=== PATIENT | male | born 1975 | race Caucasian/White ===

== ENCOUNTER 2021-09-13 20:16 | Emergency (ER) | payer BC, SELFPAY ==
--- NOTE | ~2021-09-13 | XR_ITS ---
EXAMINATION: XR WRIST, LEFT CLINICAL INFORMATION: Injury left wrist COMPARISON: None TECHNIQUE: PA, lateral, and oblique views of the left wrist. FINDINGS: Comminuted distal dorsal angulated fracture of the distal radial metaphysis is seen with minimal dorsal displacement. Likely tiny ulnar styloid tip fracture as well. Carpal bones appear to be normal anatomic alignment. There is associated soft tissue swelling. XR/XR wrist LT 2V IMPRESSION: Comminuted distal dorsal angulated and displaced radial fracture with tiny ulnar styloid fracture.
--- NOTE | ~2021-09-13 | XR_ITS ---
EXAMINATION: LEFT WRIST. CLINICAL INFORMATION: Reduction of radial fracture COMPARISON: Left wrist 09/13/2021 TECHNIQUE: 4 views. FINDINGS: There is improved alignment of the distal radial fracture. Partial cast is in place. XR/XR hand wrist LT IMPRESSION: Distal radial fracture with placement of cast.
[2021-09-13 20:39] VITALS: BP 106/69; PULSE 78; RESP 18; TEMP 36.1; O2SAT 98; BMI 20.7
--- NOTE | 2021-09-13 21:41 | ED.EXTPRO ---
HPI - Extremity Problem General Chief complaint: Extremity Injury, Upper Stated complaint: broken wrist? Time Seen by Provider: 09/13/21 21:41 Source: patient Mode of arrival: ambulatory Limitations: no limitations History of Present Illness HPI Narrative: 45-year-old male presents to the emergency department with left-sided wrist pain status falling onto an outstretched hand while playing basketball. Patient tells me he landed with an outstretched hand tried to grab himself when he was falling. He tells me he did not hit his head or loose consciousness. Patient reports that wrist pain is worse while moving it, better at rest. He tells me he is not having numbness or tingling denies headache, vision changes, nausea, vomiting, abdominal pain, chest pain, shortness of breath. Last meal was at noon. Patient denies drinking, tells me he does not drink daily. He tells me the reason he fell was because he was playing basketball in slippers. MD Complaint: joint swelling and joint pain Onset (ago): day(s) (1) Pain Consistency: constant Location: left Severity scale (1-10): >10 Quality: stabbing and sharp Radiation: none Relieving factors: nothing Exacerbating factors: nothing Associated symptoms: denies other symptoms Related Data Allergies Allergy/AdvReac Type Severity Reaction Status Date / Time No Known Allergies Allergy Unverified 09/13/21 20:42 Review of Systems Review of Systems: Constitutional : No Weight loss, No Fever, No Chills, No Fatigue, No Malaise ENT/Mouth : No sore throat, No Rhinorrhea Eyes: No Eye Pain, No Swelling, No Redness Cardiovascular : No Chest Pain, No SOB, No Dyspnea on Exertion, No Orthopnea, No Edema, No Palpitations Respiratory : No Cough, No Sputum, No Wheezing Gastrointestinal : No Nausea, No Vomiting, No Diarrhea, No Constipation, No abdominal Pain, No Hematochezia, No Melena Genitourinary : No Dysuria, No Urinary Frequency, No Hematuria, Musculoskeletal : No joint pain, No Myalgias, No Joint Swelling Skin : No Skin Lesions, No rash Neuro : No Weakness, No Numbness, No Dizziness, No Headache Psych : No Anxiety/Panic, No Depression All other systems reviewed and are negative Yes all other systems are reviewed and are negative [facility] Past Medical History Attestation statement: The following information was validated with the patient. Source: old records reviewed and nursing notes reviewed Social History Social History Advance Directives: No Advance Directives Information Provided: No Physical Exam Vital Signs: Vital Signs: Last Vital Signs Temp 97.9 F 09/14/21 01:00 Pulse 83 09/14/21 01:00 Resp 16 09/14/21 01:00 BP 139/100 H 09/14/21 01:00 Pulse Ox 98 09/14/21 01:00 BMI result Body Mass Index 20.7 Vital signs stable. Appearance: Alert.? Oriented X3.? No acute distress.? Head: Normocephalic, atraumatic, no step-offs or deformities Eyes: Pupils equal, round and reactive to light.? ENT: Pharynx normal.? Neck: Normal inspection.? Neck supple.? CVS: Normal heart rate and rhythm.? Pulses normal.? Respiratory: No respiratory distress.? Breath sounds normal.? Abdomen: Soft and nontender.? Skin: Skin warm and dry.? Normal skin color.? Normal skin turgor.? Extremities: No lower extremity edema.? No calf ttp. 5/5 strength to bilateral upper and lower extremities + pain with range of motion of left wrist, left wrist is dorsally angulated. Right side normal. 2+ radial pulses equal bilateral. No wrist drop. Capillary refill less than 2 seconds to all upper extremity digits. Neuro: Oriented X 3.? No motor deficit.? No sensory deficit. CN 2-12 intact Course Reevaluation(s) Reevaluation #1: X-ray of the left wrist significant for comminuted distal dorsal angulated and displaced radial fracture with tiny styloid fracture as well. Plan at this time is to do a bedside conscious sedation to reduce the fracture. Verbal and written consent were obtained and are in the chart. Time: 22:17 Reevaluation #2: A bedside reduction was done using propofol with Dr. Deshpande at the bedside. After patient was sedated with propofol, patient's friend at the bedside tells us that he is a heavy drinker, patient is started getting slightly agitated, 2 mg of IV Versed were given. No complications with reduction of left wrist. Patient was placed in a sugar-tong splint. After splint placement neurovascularly intact. Post reduction films were obtained and ordered. Time: 00:08 Reevaluation #3: Post reduction film shows improved alignment of the distal radial fracture. Patient feeling much better, neurovascularly intact. Vital signs are stable. Alert and oriented x4. Plan at this time is to discharge patient home with orthopedic follow up. Comfortable discharge home with prompt orthopedic follow-up. At time of discharge patient's vital signs are stable, ambulating with a steady gait, no nausea, vomiting, headache, dizziness, vision changes. Patient's splint well applied, neurovascularly intact. Time: 01:00 MDM - Extremity (Nontraumatic) MDM Narrative Medical decision making narrative: [id number] 45-year-old male presents with a left-sided wrist pain status post fall on an outstretched hand just prior to his arrival. Last meal was at noon. Patient does not drink alcohol regularly, denies alcohol today. Physical examination significant for a dorsally angulated left wrist. Sensory and motor intact. No wrist drop bilaterally. 2+ radial pulses equal and bilateral. Neurovascularly intact. Pain with range of motion of left wrist. Patient appears uncomfortable. Plan at this time is imaging. Medical Records Attestation: I reviewed the patient's medical records. Lab Data Attestation: I reviewed the patient's lab results. Procedures Orthopedic Joint Reduction Joint #1: Time Out Performed: Yes Side: left Joint Reduction Location: wrist Analgesia: procedural sedation Shoulder Technique Used (if applicable): traction/counter-traction Technique used: traction/counter-traction and direct manipulation Post-reduction neuro exam: intact Post-reduction vascular: intact Post Reduction X-Ray Obtained: Yes Post Reduction X-Ray Results: reduced Splint Applied: Yes Patient Tolerated Procedure: well Orthopedic Splinting/Casting Injury #1: Side: left Upper Extremity Injury Location: wrist Upper Extremity Immobilizer: sugar tong splint Critical Care Time Critical Care Time Critical Care Time: Yes Total Critical Care Time: 60 Attestation: I attest to this time spent taking care of the patient, obtaining history, physical, reviewing labs, imaging, speaking to my attending. Discharge Plan Discharge Clinical Impression: Distal radial fracture, Fracture of ulnar styloid Patient Disposition: Home, Self-Care Instructions: Arm Fracture in Adults (ED), Wrist Fracture in Adults (ED) Additional Instructions: Take your medications as prescribed. If you were prescribed antibiotics today, it is important that you take your medication to their entirety, do not skip any doses, do not finish them early. Follow-up with your primary care provider this week. You need to call Orthopedics on Thursday and schedule follow-up. You can take ibuprofen every 6 hours, Tylenol every 4 as needed for pain or discomfort. Return to the emergency department with new or worsening symptoms. Such as fevers, chills, chest pain, shortness of breath, nausea, vomiting, dizziness, headache, vision changes, lethargy, numbness, tingling, severe pain. Educated you in signs and symptoms of compartment syndrome such as severe pain, numbness, tingling, loss of sensation In case of emergency call 911 XR/XR wrist LT 2V IMPRESSION: Comminuted distal dorsal angulated and displaced radial fracture with tiny ulnar styloid fracture. XR/XR hand wrist LT IMPRESSION: Distal radial fracture with placement of cast.? ? Referrals: [facility] [Provider Group] - 3 days Stand Alone Forms: Work/School Release
[2021-09-13 22:36] VITALS: BP 142/91; PULSE 58; RESP 18; TEMP 36.5; O2SAT 96
[2021-09-13 22:53] VITALS: RESP 16
[2021-09-13] MEDS: Morphine Sulfate 4 MG/ML CARTRIDGE IVPUSH (22:53)
[2021-09-13 23:55] VITALS: BP 149/90; PULSE 75; RESP 16; TEMP 36.6; O2SAT 99
[2021-09-14] VITALS (11 sets, daily range): BP systolic 136–149; BP diastolic 86–100; PULSE 70–102; RESP 14–26; TEMP 36.6; O2SAT 93–100
[2021-09-14] MEDS: propofoL 200 MG/20 ML VIAL 100 MG IVPUSH (00:19)
[2021-09-14] MEDS: Midazolam HCl/PF 2 MG/2 ML VIAL 1 MG IVPUSH ×2 (00:26→00:27)
== END 2021-09-14 01:32 | disposition home or self-care (01) ==
PROVIDERS: Emergency Provider Emergency Medicine
DX: S52.502A Unspecified fracture of the lower end of left radius, initial encounter for closed fracture (principal); S52.612A Displaced fracture of left ulna styloid process, initial encounter for closed fracture; W18.30XA Fall on same level, unspecified, initial encounter; Y93.67 Activity, basketball; Y92.9 Unspecified place or not applicable; Y99.9 Unspecified external cause status
CPT/HCPCS: 25605; 73100; 73110; 73130; 96374; 96375; 99152; 99284; 99285; J2250; J2270

== ENCOUNTER 2021-09-19 07:56 | Day surgery (SDC) | payer BC, SELFPAY ==
[2021-09-19] VITALS (9 sets, daily range): BP systolic 100–127; BP diastolic 62–75; PULSE 59–84; RESP 17–20; TEMP 36.2–36.8; O2SAT 97–100; BMI 20.7
--- NOTE | ~2021-09-19 | FL_ITS ---
EXAMINATION: XR FLUOROSCOPY WITH IMAGES CLINICAL INFORMATION: Left wrist fracture. COMPARISON: 09/13/2021 TECHNIQUE: Fluoroscopy performed by Dr. Esme Siegel. FLUOROSCOPY TIME: 30.4 seconds DAP: 0.0473 Gy-cm2 FLUOROSCOPY IMAGES 4 FINDINGS: Intraoperative imaging demonstrates placement of sideplate and screws for fixation of comminuted distal left radial fracture with improvement in radiocarpal angulation to volar. There is acquired negative ulnar variance. FL/FL guidance in OR IMPRESSION: Intraoperative fluoroscopy for OR internal fixation of comminuted left radial fracture.
--- NOTE | 2021-09-19 07:54 | P.OP_ITS ---
Operative Note Operative Note Date of Service: 09/19/21 Narrative: Operative Note Narrative: Preop diagnosis: 1. Left Distal radius fracture 2. Left acute carpal tunnel syndrome Postop diagnosis: Same Procedure: 1. Left Distal radius fracture open reduction internal fixation 2. Left carpal tunnel release Surgeon: Monika Siegel MD Anesthesia: General anesthesia plus regional block Findings: Pronator quadratus muscle caught in fracture site Implants: A 3 hole Accu Med volar locking plate, with 6 X 2.3 mm locking pegs/screws, and 3 3.5 mm cortical screws Tourniquet time: 72 minutes EBL: 5.0 ml Specimen: None Drains: None Complications: None Disposition: Brought to the recovery room in stable condition Plan: Follow-up in 10-14 days for wound check, suture removal and postop radiographs The patient will be placed in a volar wrist splint. Encouraged no lifting of anything heavier than a cell phone. Please encourage active and passive range of motion of the digits. Follow-up at 4-5 weeks postop for repeat radiographs. Indications: The patient is a 45 year old man with left displaced distal radius fracture who also had some persistent numbness and tingling in the median nerve distribution since his fracture. . The risks and benefits of operative treatment, including but not limited to risk of damage to blood vessels, nerves, tendons, infection, recurrence, persistent pain or numbness, incomplete resolution of preoperative symptoms, or need for further surgery were discussed with the patient and they wished to proceed with surgery. Procedure: Once consent was obtained patient was brought back to the operating suite and placed in the operating table in a supine position. A regional block was performed by the anesthesia team. Perioperative antibiotics and anesthesia was administered by the anesthesia team. A tourniquet was applied to the proximal aspect of the left upper extremity and the limb was prepped and draped in a standard surgical fashion. The limb was elevated exsanguinated with Esmarch bandage and the tourniquet inflated to 250 mm of mercury for a total tourniquet time of 72 minutes. A 2.0 cm longitudinal incision was made centered over the left carpal tunnel. The incision was made through the skin to the subcutaneous tissues using a #15 blade. Dissection was made down to the level of the transverse carpal ligament with care being taken to protect the palmar cutaneous nerve. Once the feliciano sverse carpal ligament was clearly visualized, a longitudinal incision was made in the transverse carpal ligament 1st using a #15 blade, then using tenotomy scissors under direct visualization. Care was taken to look for and protect the motor branch of the median nerve when seen in this area. Once satisfied with our carpal tunnel release the wound was irrigated with normal saline, and the skin edges reapproximated with some 4-0 Prolene suture material.. Our attention was then turned to our distal radius fracture. The FluoroScan was used throughout the case to assess our reduction, and facilitate implant placement. A gentle closed reduction was 1st performed on the patient's left distal radius fracture. Was assessed radiographically before proceeding with the reduction internal fixation. I then made an 8 cm longitudinal incision over the distal aspect of the flexor carpi radialis tendon. The incision was made through the skin to the subcutaneous tissue using a 15. Blade. Then carefully dissected down to flexor carpi radialis tendon she tenotomy scissors. The FCR tendon sheath was then incised longitudinally using tenotomy scissors under direct visualization. The FCR tendon was then retracted ulnarly. I then made a longitudinal incision in the volar forearm fascia through the floor of FCR tendon sheath using tenotomy scissors under direct visualization. I identified the interval between the radial artery and the flexor tendons. This interval was developed further with my index finger, releasing some of the muscular fibers of the flexor pollicis longus. A dull weatlander retractor was then placed. I then created an ulnarly based flap of the pronator quadratus by releasing the radial and distal edges using a 15. Blade. A Waldrop elevator was used to elevate the pronator quadratus from the volar surface of the distal radius. This then revealed to us our distal radius fracture. Some of the pronator quadratus muscle belly was caught in the fracture site. Th e fracture was opened and the muscle tissue removed using a small rongeur. The distal aspect of the radius was displaced posteriorly. An open reduction was then performed on our distal radius fracture and a 0.054 K-wire was passed retrograde through the radial styloid obliquely across the fracture and through the ulnar cortex of the shaft. This was provisional fixation.. I then placed a short standard 3 hole Accu Med volar locking plate on the volar surface of the distal radius. I placed a single K-wire through the distal aspect of the plate and into the distal radius. This was assessed using fluoroscopic images. I was satisfied with the placement of our plate. I then placed 6 sex 2.3 mm locking screws/pegs in the distal aspect of the plate and distal radius by 1st drilling bicortically with a 2.0 mm drill bit, measuring with a depth gauge, and placing the appropriate length locking screws/pegs. The placement of our plate and screws was then assessed again using fluoroscopic images. The once satisfied with the placement of the volar locking plate and screws on the distal aspect of the distal radius, the provisional obliquely placed K-wire was removed, and the plate was then reduced to the shaft of the radius. I then placed 3 3.5 mm cortical screws to the proximal aspect of the plate and into the shaft of the radius. This was done by 1st drilling bicortically with a 2.8 mm drill bit, measuring with a depth gauge, and placing the appropriate length screw. Final radiographs were then obtained. The DRUJ was assessed and found to be stable on exam. I was satisfied with our reduction and placement of all implants. At this point the wound was irrigated with normal saline. The pronator quadratus was significantly damaged in the fracture and not able to be reapproximated over the plate.. The tourniquet was then deflated and hemostasis was obtained with a brief period of local pressure and bipolar monopolar electrocautery. The subcutaneous layer was then reapproximated using some 4-0 Vicryl suture, and the skin edges were reapproximated using some 5 0 Prolene suture. The wound was then infiltrated with some 1% lidocaine with epinephrine postop pain control. A sterile dressing and a short dorsal splint allowing for active flexion and extension of the digits was applied. The patient appears to have tolerated the procedure well and with no complications. All digits were well vascularized conclusion of the case.
[2021-09-19] MEDS: Albuterol/Iprat 2.5/0.5MG 3 ML AMPUL.NEB 1.5 ML INHALE (09:04)
--- NOTE | 2021-09-19 09:08 | HO.ANESPROP2 ---
HPI - Anesthesia Eval Consult details Narrative: 45 M for ORIF left radius Current Smoker , COPD Patient had end expiratory wheezing in the pre -op We gave Duo neb nebulization Denies any recent cough , fevers , runny nose , sore throat . We will not delay care and procced with the procedure . Patient counselled to quit smoking and discuss options with PCP . Also discussed with the patient that he may need inhaler prescription from the PCP . Patient also explained that if he has any kind of respiratory symptoms , difficulty breathing should immediately go to the ED . PMF Active Problems Active Problems: All Active Problems (Updated 09/18/21 @ 09:08 by Dillon Shukla PA-C) Distal radius fracture, left (Acute) Past Medical History Medical History Smoker Family History Family history of problems with anesthesia: No Surgical History Surgical History (Updated 09/19/21 @ 08:28 by Margarita Sloan RN) History of knee surgery Hx of oral surgery History of Problems with Anesthesia: No Social History Social History (Updated 09/18/21 @ 08:17 by MIKAELA Gamble) Patient Tobacco Use Status: Current everyday Tobacco user Tobacco use type: Cigarette Cigarettes Per Day: 10 Smoked in Last 30 Days: Yes Use of substances other than those prescribed or required for medical reasons: Yes Substance Use Frequency: Occasionally Are you DNR?: No Advance Directives: No Advance Directives Information Provided: Yes Current occupational status: employed Current occupation: [employer], [employer] Meds Allergies Allergy/AdvReac Type Severity Reaction Status Date / Time No Known Allergies Allergy Verified 09/19/21 09:09 Exam Exam Date and Time: September 19, 2021 0908 Height,Weight and Vital Signs: Height 5 ft 9 in Weight 63.503 kg Last Vital Signs Temp 97.7 F 09/19/21 08:25 Pulse 71 09/19/21 09:03 Resp 18 09/19/21 09:03 BP 127/75 09/19/21 08:25 Pulse Ox 98 09/19/21 08:25 O2 Del Method 09/19/21 08:25 Airway Mallampati Class: II TM Dist: >3cm Neck ROM: Full Loose/Missing/Broken Teeth: Yes (Poor dentition ) Heart: S1 , S2 Lungs: b/l breath sounds Other: old bailon left shoulder Assessment and Plan Assessment Anesthesia Assessment: Anesthesia Plan Discussed, Smoking Cess. Discussed and Chart Reviewed Final Anesthetic Review Family History of Problems with Anesthesia: No History of Problems with Anesthesia: No NPO: Yes ASA Class: III Final Preanesthetic Review: Meds/Allgs Chart Reviewed, Consent Obtained/Reviewed and Anes Risks/Benef Reviewed Patient Risk: High Procedure Risk: Intermediate Anesthetic Plan Anesthetic Plan: GA and Regional Block Disposition: Standard PACU
[2021-09-19] MEDS: Lactated Ringers 1,000 ML 80 ML IVCONT (09:23)
--- NOTE | 2021-09-19 10:17 | MHC.SHP ---
Pre-Procedural Eval Section A Date of Service: 09/19/21 The patient is an INPATIENT: No Changes since office visit: No Cold of Flu in the past 2 weeks, No New Medical Problems, No Changes in Medication and No Patient answered all questions The History & Physical has been completed within 30 days and I have reviewed it.: Yes Section B Chief Complaint: Unspecified fracture of the lower end of left radi Allergies: Allergies Allergy/AdvReac Type Severity Reaction Status Date / Time No Known Allergies Allergy Verified 09/19/21 09:09 Plan I have reviewed the history and physical and performed a pertinent physical examination on my patient. No changes have occurred unless specified.
--- NOTE | 2021-09-19 10:28 | P.HPSUR_ITS ---
Pre-Procedural Eval Section A Date of Service: 09/19/21 The patient is an INPATIENT: No Changes since office visit: Yes Cold of Flu in the past 2 weeks, Yes New Medical Problems, Yes Changes in Medication and Yes Patient answered all questions The History & Physical has been completed within 30 days and I have reviewed it.: Yes Section B Chief Complaint: Unspecified fracture of the lower end of left radi Allergies: Allergies Allergy/AdvReac Type Severity Reaction Status Date / Time No Known Allergies Allergy Verified 09/19/21 09:09 Exam Exam Comment: In talking with the patient in preop hold he described that he had persistent pins and needle sensation in his thumb index and middle fingers over the last few days. He did have some decreased subjective sensation in his fingertips when seen at the bedside, however he had recently had a block performed by Anesthesia. Out of an abundance of caution I talked to him about having a carpal tunnel release in addition to fixing his distal radius fracture. He agreed and we amended his consent at the bedside with his permission and initi als. Plan I have reviewed the history and physical and performed a pertinent physical examination on my patient. No changes have occurred unless specified.
== END 2021-09-19 14:16 | disposition home or self-care (01) ==
PROVIDERS: Visit Provider Orthopaedic Surgery
PROC: (CPT 25607; principal; 2021-09-19 09:30)
PROC: (CPT 64721; 2021-09-19 09:30)
DX: S52.502A Unspecified fracture of the lower end of left radius, initial encounter for closed fracture (principal); G56.02 Carpal tunnel syndrome, left upper limb; R06.2 Wheezing; J44.9 Chronic obstructive pulmonary disease, unspecified; W01.0XXA Fall on same level from slipping, tripping and stumbling without subsequent striking against object, initial encounter; Y93.67 Activity, basketball; Y92.9 Unspecified place or not applicable; Y99.8 Other external cause status; F17.210 Nicotine dependence, cigarettes, uncomplicated
CPT/HCPCS: 25607; 64721; 94640; C1713; C1769; J0690; J1100; J1885; J2250; J2405; J2795; J3010

== ENCOUNTER 2021-10-02 08:24 | Outpatient (REF) | payer BC, SELFPAY ==
--- NOTE | ~2021-10-02 | XR_ITS ---
EXAMINATION: XR WRIST, LEFT CLINICAL INFORMATION: Pain left wrist. COMPARISON: None TECHNIQUE: PA, lateral, and oblique views of the left wrist. FINDINGS: There is a comminuted distal radial fracture stabilized with volar plate and screws. The fracture fragment is in alignment. There is no dislocation. The soft tissues are normal. XR/XR wrist LT min 3V IMPRESSION: Comminuted fracture distal radius with volar plate and screws stabilizing fracture in alignment.
== END 2021-10-02 08:25 | disposition home or self-care (01) ==
LOC: HO.HOSX 08:24
PROVIDERS: Visit Provider Orthopaedic Surgery
DX: M25.532 Pain in left wrist (principal)
CPT/HCPCS: 73110

== ENCOUNTER 2021-10-16 07:58 | Outpatient (REF) | payer BC, SELFPAY ==
--- NOTE | ~2021-10-16 | XR_ITS ---
EXAMINATION: XR WRIST, LEFT CLINICAL INFORMATION: Left wrist pain. COMPARISON: 10/02/2021 TECHNIQUE: PA, lateral, and oblique views of the left wrist. FINDINGS: Status post ORIF of comminuted distal radial fracture stabilized with volar plate and screws. Alignment is unchanged. No periprosthetic lucency. Mild diffuse soft tissue swelling. XR/XR wrist LT min 3V IMPRESSION: Stable examination.
== END 2021-10-16 07:59 | disposition home or self-care (01) ==
LOC: HO.HOSX 07:58
PROVIDERS: Visit Provider Orthopaedic Surgery
DX: M25.532 Pain in left wrist (principal)
CPT/HCPCS: 73110

== ENCOUNTER 2021-10-23 08:30 | Outpatient (RCR) | payer BC, SELFPAY ==
--- NOTE | 2021-10-02 11:59 | MHC.OT.EP ---
[address] [phone] Occupational Therapy Plan of Care Date of Evaluation: 10/02/21 Diagnosis: Post op L distal radius ORIF and CTR Assessment: Pt. is a 45 y/o male, L hand dominant, presenting s/p L distal radius ORIF and a L carpal tunnel release on 09/19/21. Original injury was sustained s/p fall on L wrist while playing basketball. Pt. arrived today from ortho where his cast was removed and steri strips were placed. He appears somewhat guarded and reports not moving his fingers much while casted, although he is motivated for treatment and very receptive to all recommendations this date. Pt. is having difficulty with performing daily activities and scored a 73% limitation per the Quick DASH assessment. Pt. was educated in role of OT, POC, and goals for therapy. Additionally, he was educated in scar management, activity modifications with precautions of not lifting anything heavier than a cell phone for 2 weeks, as well as gentle AROM and FMC exercises. Per MD orders, will hold on significant wrist flexion/extension for 2-3 weeks. Ongoing skilled OT is recommended to address previously noted barriers and assist in return to PLOF. Frequency and Duration: The patient will be seen 1x/wk for 4 weeks then progress to 2/wk for 4 weeks when able to perform progressive wrist therex. Short Term Goals: Decrease L wrist pain <4/10 with use IND with scar mobilization and desensitization techniques Improve digit ROM to be able to make full tight fist Complete digit opposition L hand to tip of small finger Improve FMC to be able to complete Functional Dexterity Test with L hand Improve L wrist flexion/extension by 15 degrees each Government Professor Goals: Pain free with BADL's/and light IADL's Improve L wrist ROM to WFL's Pt. 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 Thank you once again for your referral.
== END 2022-06-06 11:00 | disposition home or self-care (01) ==
LOC: HO.OT 08:30
PROVIDERS: Visit Provider Orthopaedic Surgery
DX: S52.502A Unspecified fracture of the lower end of left radius, initial encounter for closed fracture (principal); M25.642 Stiffness of left hand, not elsewhere classified
CPT/HCPCS: 97110; 97140; 97166

== ENCOUNTER 2021-12-03 09:05 | Outpatient (REF) | payer BC, SELFPAY ==
--- NOTE | ~2021-12-03 | XR_ITS ---
EXAMINATION: XR WRIST, LEFT CLINICAL INFORMATION: Pain. COMPARISON: Left wrist 10/16/2021 TECHNIQUE: PA, lateral, and oblique views of the left wrist. FINDINGS: There is a transverse fracture distal radius stabilized with volar plate and screws. The fracture line is still visualized mild callus formation is seen along the edges of the fracture. There is diffuse osteopenia. XR/XR wrist LT min 3V IMPRESSION: Slowly healing distal radial fracture stabilized with volar plate and screws. Mild callus formation is visualized. The fracture line is still visualized as well. Diffuse osteopenia
== END 2021-12-03 09:06 | disposition home or self-care (01) ==
LOC: HO.HOSX 09:05
PROVIDERS: Visit Provider Orthopaedic Surgery
DX: M25.532 Pain in left wrist (principal)
CPT/HCPCS: 73110

== ENCOUNTER 2022-01-06 15:44 | Outpatient (REF) | payer BC, SELFPAY ==
--- NOTE | ~2022-01-06 | XR_ITS ---
EXAMINATION: XR WRIST, LEFT CLINICAL INFORMATION: Pain COMPARISON: Wrist radiographs 12/03/2021 TECHNIQUE: PA, lateral, and oblique views of the left wrist. FINDINGS: ORIF of the distal radial fracture in unchanged alignment. Similar minimal bridging bony callus formation. Similar ulnar styloid avulsion fracture. Osteopenia. No acute new fracture or dislocation. Soft tissues are unremarkable. XR/XR wrist LT min 3V IMPRESSION: ORIF of the distal radial fracture in unchanged alignment. Similar minimal bridging bony callus formation. Similar ulnar styloid avulsion fracture. Osteopenia.
== END 2022-01-06 15:45 | disposition home or self-care (01) ==
LOC: HO.HOSX 15:44
PROVIDERS: Visit Provider Orthopaedic Surgery
DX: M25.532 Pain in left wrist (principal)
CPT/HCPCS: 73110

== ENCOUNTER 2024-06-09 15:30 | Inpatient (IN) | payer BC, SELFPAY ==
--- NOTE | ~2024-06-09 | US_ITS ---
EXAMINATION: US TRIPLEX LOWER EXTREMITY, RIGHT CLINICAL INFORMATION: Calf pain, heard pop.? Achilles tear. COMPARISON: None available. TECHNIQUE: Color-flow triplex imaging with spectral analysis and compression Doppler were performed on the right lower extremity. FINDINGS: There is noncompressible occlusive thrombus within the right common femoral vein, extending through the popliteal vein into the calf veins. There is no Pedersen's cyst. There is calf edema present. US/US venous duplex LE RT IMPRESSION: POSITIVE for occlusive right lower leg DVT, spanning the right common femoral vein, through the popliteal vein, into the calf veins. Electronically signed by: Jean-Paul Still MD 06/09/2024 04:25 PM BRIEN
--- NOTE | ~2024-06-09 | CT_ITS ---
CLINICAL HISTORY: left flank pain CT ABDOMEN AND PELVIS WITHOUT CONTRAST Comparison: CT/SR - CT ANGIO ABDOMEN PELVIS - 06/09/24 19:44 EST Findings: Bilateral lower lobe atelectasis and/or scarring. There is an 8 mm noncalcified left lower lobe nodule. There is subpleural airspace opacity in the left lower lobe laterally. No acute abnormalities in the unenhanced solid organs. No renal or ureteral calculus. No large calcified gallstone. Dense calcific plaque in the distal abdominal aorta. No AAA. No bowel obstruction, pneumoperitoneum, or pneumatosis. No ascites or significant mesenteric edema. No significant paracolic edema. The appendix is identified. No acute appendicitis. Urinary bladder and prostate unremarkable. There is subcutaneous edema in the right thigh most likely related to known DVT. No acute osseous abnormality. IMPRESSION: 1. No acute obstructive uropathy or urolithiasis. 2. No obstructive or acute inflammatory changes in the gastrointestinal tract. 3. Small subpleural infiltrate in the left lower lobe, new since prior study. 4. Indeterminate 8 mm left lower lobe pulmonary nodule. Follow-up dedicated CT chest is suggested on a nonemergent basis. This document has been electronically signed by: Nithya Chua DO on 06/11/2024 14:32:21
--- NOTE | ~2024-06-09 | CT_ITS ---
CLINICAL HISTORY: extensive DVT CT angiography abdomen and pelvis with contrast. 3-D post processing. Comparison: None Findings: Aorta normal in caliber. No aneurysm or dissection. Distal left aortic coral reef 3.5 cm calcified plaque results in at least 90 percent luminal narrowing image 282. Mesenteric and renal arteries are patent. [id number] atherosclerotic disease of the iliofemoral arteries bilaterally with no hemodynamically significant stenosis. The lung bases are clear. Unremarkable gallbladder and solid organs. No urolithiasis. No bowel obstruction, pneumoperitoneum, or pneumatosis. Pelvic contents unremarkable. Normal appendix. No acute fracture. IMPRESSION: 1. Right profunda femoris, common femoral, and superficial femoral deep vein thrombosis with expanded vein and surrounding fatty induration. This is indirectly evaluated due to lack of venous contrast opacification. No evaluation of thrombus in the iliac veins can be made on this examination. 2. Severe distal aortic stenosis due to a large calcified plaque. This document has been electronically signed by: Татьяна Crawley MD on 06/09/2024 22:07:55
--- NOTE | ~2024-06-09 | XR_ITS ---
EXAMINATION: XR TIBIA AND FIBULA, RIGHT CLINICAL INFORMATION: right posterior leg pain. heard pop COMPARISON: None available. TECHNIQUE: AP and lateral views of the right tibia and fibula were obtained. FINDINGS: The bones and soft tissues are normal. No fracture. No osseous lesions. XR/XR tibia fibula RT 2V IMPRESSION: Unremarkable right tibia and fibula. Electronically signed by: Zak Sarabia MD 06/09/2024 04:34 PM EST
[2024-06-09 15:35] VITALS: BP 141/79; PULSE 115; RESP 18; TEMP 37.4; O2SAT 100; BMI 20.7
--- NOTE | 2024-06-09 15:47 | ED_ITS ---
HPI - General Adult General Chief complaint: Extremity Injury, Lower Stated complaint: Rt leg pain heard something snap Time Seen by Provider: 06/09/24 17:56 Source: patient, RN notes reviewed and old records reviewed Mode of arrival: ambulatory Limitations: no limitations History of Present Illness ED Provider: Janina FLOREZ narrative: 48-year-old male who denies any past medical history presents for evaluation of right leg pain and swelling. Patient reports he has had worsening pain for approximately 3 weeks. Denies any injury or trauma to the area. He reports he was very active His pain starts in his right groin and goes all way down to the right ankle/foot. He denies any history of DVT or PE Denies any fevers or chills pain Denies any chest pain, shortness of breath or cough. He was a daily smoker Related Data Home Medications ?Medication ?Instructions ?Recorded ?Confirmed No Known Home Meds 06/09/24 06/09/24 Allergies Allergy/AdvReac Type Severity Reaction Status Date / Time No Known Allergies Allergy Verified 06/09/24 15:39 Review of Systems 2 Constitutional: Constitutional: Denies body ache(s), Denies chills, Denies fever(s) and Denies frequent falls Eyes: Eyes: Denies dry eyes and Denies floaters ENT: Denies dysphagia and Denies vertigo Cardiovascular: Cardiovascular: Denies chest pain and Denies dyspnea Respiratory: Respiratory: Denies cough and Denies dyspnea Gastrointestinal: Gastrointestinal: Denies dysphagia Musculoskeletal: Musculoskeletal: Denies back pain, Denies arthralgias and Reports radiating pain into limb Integumentary/Breasts: Skin/Breast: Denies rash Neurologic: Denies vertigo and Denies frequent falls [facility] Past Medical History Medical History Smoker Surgical History Hx of oral surgery History of knee surgery Social History Social History Household Members: None Housing: House Do you presently have visiting nurse or other home services: No Alcohol intake: former Patient Tobacco Use Status: Current everyday Tobacco user Tobacco use type: Cigarette Cigarette Packs Per Day: 1 Cigarettes Per Day: 20.0 Current occupational status: employed 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, 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 Physical Exam ED Vital Signs: Vital Signs - 24 hr 06/09/24 15:35 06/09/24 19:59 Temperature 99.3 F 98.6 F Pulse Rate 115 H 98 Respiratory Rate 18 12 Blood Pressure 141/79 H 122/70 Pulse Oximetry 100 100 Oxygen Delivery Method Room Air Room Air BMI result Body Mass Index 17.5 Const General: healthy appearing, comfortable, no acute distress, alert and awake Nutritional Appearance: thin Orientation/consciousness: patient oriented x3 HENMT Head: Yes normocephalic and Yes atraumatic Eyes Eyelids: Yes eyelids normal Conjunctivae: conjunctivae normal Sclerae: sclerae normal Corneas: corneas normal Pupils: Equal, round and reactive pupils present EOM: EOMs intact bilaterally Neck Neck: Yes full ROM Resp Effort & Inspection: normal respiratory effort, able to speak in complete sentences and not labored GI Inspection: No distended Palpation (GI): Soft to palpation, not firm, nontender, no guarding and not rigid Auscultation: normoactive bowel sounds Skin General skin exam: elasticity normal Neuro General: patient oriented x3 Cranial nerves: Yes Equal, round and reactive pupils present and Yes Bilaterally intact EOM present Cognition (Neuro): normal cognition Extrem Other: Patient's right lower extremities edematous from the groin down to the ankle. No pitting edema. Calf veins are distended. There was some erythema to the valenzuela with increased warmth. DP and PT pulses are 2+ and equal. Course Course Course Narrative: RME: 48-year-old male presents to ED for right calf pain for many weeks. Patient states he was at work 2 weeks ago and heard a pop in his right calf ever since then he has had pain on ambulation and the past 2 days the pain was so bad he could not walk on right leg due to severe calf pain. Negative for signs for compartment syndrome. Positive for foot pulses. Positive for severe tenderness of calf. Will send ultrasound to rule out DVT and calf tear/Achilles tendon tear. Medications Administered Generic Name Dose Route Start Last Admin Trade Name Freq PRN Reason Stop Dose Admin Heparin Sodium (Porcine) 4,300 unit 06/09/24 19:46 06/10/24 03:09 Heparin Sodium,Porcine 5,000 Unit/Ml Vial 80 unit/kg (4300 unit) 4,300 unit IVPUSH Administration PROTOCOL BOLUS PRN 80 unit/kg - Heparin Protocol Protocol Heparin Sodium/Sodium Chloride 25,000 unit in 250 mls @ 0 mls/hr 06/09/24 20:00 06/10/24 07:06 Heparin Sodium,Porcine/1/2ns IVCONT 18 units/kg/hr .Q0M JULIA 9.68 mls/hr Administration Protocol Per Protocol Morphine Sulfate 4 mg 06/09/24 20:31 06/10/24 06:09 Morphine Sulfate 4 Mg/Ml Cartridge IVPUSH 4 mg Q4H PRN Administration Pain, Severe (Pain Scale 7-10) Protocol Nicotine 21 mg 06/09/24 21:15 06/09/24 22:16 Nicotine 21 Mg Patch.Td24 TRANSDERMA Not Given DAILY JULIA Sodium Chloride 3 ml 06/10/24 00:00 06/10/24 08:26 0.9 % Sodium Chloride Flush 3 Ml Syringe IVFLUSH Not Given QSHIFT JULIA Discontinued Medications Generic Name Dose Route Start Last Admin Trade Name Freq PRN Reason Stop Dose Admin Heparin Sodium (Porcine) 5,100 unit 06/09/24 19:01 06/09/24 19:56 Heparin Sodium,Porcine 5,000 Unit/Ml Vial 80 unit/kg (5100 unit) 06/09/24 19:02 5,100 unit IVPUSH Administration ONCE ONE Lactated Ringer's 1,000 mls @ 999 mls/hr 06/09/24 19:30 06/09/24 21:03 Lr IV 06/09/24 20:30 Infused .Q1H1M JULIA Infusion Thiamine HCl 200 mg/ Sodium 102 mls @ 204 mls/hr 06/09/24 20:45 06/09/24 22:42 Chloride IV 06/09/24 21:14 Infused ONCE ONE Infusion Iohexol 100 ml 06/09/24 19:46 06/09/24 19:48 Iohexol 350 Mg/Ml 100 Ml Infus..Btl IV 06/09/24 19:47 80 ml ONCE ONE Administration Iohexol 85 ml 06/09/24 19:58 06/09/24 19:59 Iohexol 350 Mg/Ml 100 Ml Infus..Btl IV 06/09/24 19:59 85 ml ONCE ONE Administration Morphine Sulfate 4 mg 06/09/24 19:46 06/09/24 19:58 Morphine Sulfate 4 Mg/Ml Cartridge IVPUSH 06/09/24 19:47 4 mg ONCE ONE Administration Protocol Ondansetron HCl 4 mg 06/09/24 19:46 06/09/24 19:55 Ondansetron Hcl 4 Mg/2 Ml Vial IVPUSH 06/09/24 19:47 4 mg ONCE ONE Administration Potassium Chloride 40 meq 06/09/24 20:39 06/09/24 21:08 Potassium Chloride Packet 20 Meq Packet PO 06/09/24 20:40 40 meq ONCE ONE Administration Medical Decision Making Medical Decision Making [facility] Narrative: 48-year-old male presents for evaluation of atraumatic right leg pain and swelling. He has an extensive DVT on ultrasound. The extremity is warm, dry, well perfused with good pulses, I have a very low suspicion for arterial insufficiency to the area. I discussed with vascular surgery, Dr. Osborn who recommends CT angiography of the abdomen pelvis to evaluate the extent of the DVT and admit the patient with heparin. I ordered the heparin. The patient has no chest pain, shortness of breath with the cough. CT angiography of the chest was considered but ultimately not obtained Differential Diagnosis Differential Diagnoses: The differential diagnosis associated with the presentation includes DVT Cellulitis Arthritis Arthralgia Admission/Observation Consideration of admission/observation: Escalation of care including admission/observation considered Consult Healthcare Provider Management of the patient was discussed with: Shank Stitcher (Dr Osborn, vascular) Lab Data [facility] Lab Attestation statement: I reviewed the patient's lab results. Leukocytosis to 17.2, which may be reactive in nature, the patient does have a mild anemia with a hemoglobin 13.6 hematocrit 39.2. Patient has a mild hyponatremia, hypokalemia hypochloremia, which may be related to alcohol abuse. The patient is not on any diuretics or any medication. 06/10/24 04:30 06/10/24 04:30 Labs: Lab Results 06/09/24 06/09/24 Range/Units 17:00 19:34 WBC 17.7 H 17.2 H (4.8-10.8) X10*3/uL RBC 4.31 L 3.98 L (4.60-5.80) X10*6/uL Hgb 13.6 L 12.9 L (14.0-18.0) g/dl Hct 39.2 L 35.9 L (42.0-52.0) % MCV 91.0 90.2 (80.0-98.0) fL MCH 31.6 32.4 (27.0-33.0) pg MCHC 34.7 35.9 (31.0-36.0) g/dl RDW 11.9 12.0 (11.0-16.0) % Plt Count 433 H 384 (160-400) X10*3/uL MPV 9.3 L 9.2 L (9.4-12.4) fL Immature Gran % (Auto) 0.6 H (0.0-0.4) % Neut % (Auto) 81.8 H (45-73) % Lymph % (Auto) 7.9 L (20-40) % [place] % (Auto) 8.9 (2-11) % Eos % (Auto) 0.5 (0-4) % Baso % (Auto) 0.3 (0-2) % Lymph # (Auto) 1.4 (1.2-4.9) X10*3/uL [place] # (Auto) 1.6 H (0.1-1.2) X10*3/uL Eos # (Auto) 0.1 (0.0-0.4) X10*3/uL Baso # (Auto) 0.1 (0.0-0.2) X10*3/uL Abs Immat Gran (auto) 0.10 H (0.00-0.03) X10*3/uL Absolute Neuts (auto) 14.5 H (2.0-8.3) x10*3/uL Absolute Nucleated RBC 0.000 0.000 (0.0-0.012) X10*3/uL Nucleated RBC % (auto) 0.0 0.0 (0.0-0.2) /100WBC Smear Tech's Comments VERIFIED PT 14.4 H 14.9 H (10.9-12.4) SEC INR 1.2 H 1.3 H (0.9-1.1) APTT 29.5 (26.0-36.8) SEC aPTT Heparin Protocol 28.1 L (53-77.9) SEC Sodium 131 L (135-145) mmol/L Potassium 3.2 L (3.3-5.1) mmol/L Chloride 94 L (96-108) mmol/L Carbon Dioxide 25 (22-29) mmol/L Anion Gap 15 (12-20) BUN 6 L (9-16) mg/dL Creatinine 0.79 (0.5-1.4) mg/dL Estim Creat Clear Calc 100.4 Estimated GFR > 60 Random Glucose 146 H (60-115) mg/dL Calcium 9.0 (8.4-10.2) mg/dL Total Bilirubin 0.9 (0.0-1.0) mg/dL AST 31 (5-37) U/L ALT 10 (0-40) U/L Alkaline Phosphatase 110 (39-117) U/L Total Protein 7.9 (6.5-8.0) g/dL Albumin 3.4 L (3.5-5.0) g/dL Triglycerides 118 (<150) mg/dL Cholesterol 117 (<200) mg/dL LDL Cholesterol, Calc 71 (<100) mg/dL HDL Cholesterol 23 L (>40) mg/dL Ethyl Alcohol < 10 mg/dL Discharge Plan Discharge Clinical Impression: Acute deep vein thrombosis (DVT) of right lower extremity Qualifiers: Affected thrombotic vein of extremity: femoral Qualified Code(s): I82.411 - Acute embolism and thrombosis of right femoral vein Patient Disposition: Admitted As Inpatient Interventions: Admission Worksheet (ED) Last Done: 06/10/24 07:38 Discharge Date/Time: 06/10/24 08:23
[2024-06-09 17:08] LABS: Basophils Absolute Auto 0.1 X10*3/uL (0.0-0.2); Basophils Percent Auto 0.3 % (0-2); Eosinophils Absolute Auto 0.1 X10*3/uL (0.0-0.4); Eosinophils Percent Auto 0.5 % (0-4); Hematocrit 39.2 % (42.0-52.0); Hemoglobin 13.6 g/dl (14.0-18.0); Imm Gran Pct Auto 0.6 % (0.0-0.4); Lymphocytes Absolute Auto 1.4 X10*3/uL (1.2-4.9); Lymphocytes Percent Auto 7.9 % (20-40); MANUAL DIFF FLAG SCAN; Mean Corpuscular HGB Conc 34.7 g/dl (31.0-36.0); Mean Corpuscular Hemoglobin 31.6 pg (27.0-33.0); Mean Platelet Volume 9.3 fL (9.4-12.4); Monocytes Absolute Auto 1.6 X10*3/uL (0.1-1.2); Monocytes Percent Auto 8.9 % (2-11); Neutrophils Absolute Auto 14.5 x10*3/uL (2.0-8.3); Neutrophils Percent Auto 81.8 % (45-73); Platelet Count 433 X10*3/uL (160-400); Red Blood Count 4.31 X10*6/uL (4.60-5.80); Red Cell Distribution Width 11.9 % (11.0-16.0); SCAN SMEAR FLAG 1; White Blood Count 17.7 X10*3/uL (4.8-10.8)
[2024-06-09 17:13] LABS: INTERNATIONAL NORM RATIO 1.2 (0.9-1.1); Prothrombin Time 14.4 SEC (10.9-12.4)
[2024-06-09 17:16] LABS: Partial Thromboplastin Time 29.5 SEC (26.0-36.8)
[2024-06-09 17:24] LABS: Alanine Aminotransferase 10 U/L (0-40); Albumin Level 3.4 g/dL (3.5-5.0); Alkaline Phosphatase 110 U/L (39-117); Anion Gap 15 (12-20); Aspartate Amino Transferase 31 U/L (5-37); Bilirubin Total 0.9 mg/dL (0.0-1.0); Blood Urea Nitrogen 6 mg/dL (9-16); Carbon Dioxide 25 mmol/L (22-29); Chloride 94 mmol/L (96-108); Creatinine Clr Calc Pharmacy 100.4; Estimated Glomerular Filt Rate > 60; Glucose Random 146 mg/dL (60-115); Potassium 3.2 mmol/L (3.3-5.1); Sodium 131 mmol/L (135-145); Total Protein 7.9 g/dL (6.5-8.0)
[2024-06-09 17:37] LABS: SLIDE REVIEW VERIFIED
[2024-06-09 19:41] VITALS: BMI 17.5
[2024-06-09 19:41] LABS: Hematocrit 35.9 % (42.0-52.0); Hemoglobin 12.9 g/dl (14.0-18.0); Mean Corpuscular HGB Conc 35.9 g/dl (31.0-36.0); Mean Corpuscular Hemoglobin 32.4 pg (27.0-33.0); Mean Corpuscular Volume 90.2 fL (80.0-98.0); Mean Platelet Volume 9.2 fL (9.4-12.4); Platelet Count 384 X10*3/uL (160-400); Red Blood Count 3.98 X10*6/uL (4.60-5.80); White Blood Count 17.2 X10*3/uL (4.8-10.8)
[2024-06-09 19:48] LABS: INTERNATIONAL NORM RATIO 1.3 (0.9-1.1); Prothrombin Time 14.9 SEC (10.9-12.4)
[2024-06-09] MEDS: iohexoL 350 MG/ML 100 ML INFUS..BTL IV (19:48)
[2024-06-09 19:51] LABS: PTT Heparin Drip 28.1 SEC (53-77.9)
[2024-06-09] MEDS: ondansetron HCL 4 MG/2 ML VIAL IVPUSH (19:55)
[2024-06-09] MEDS: Heparin Sodium,Porcine 5,000 UNIT/ML VIAL 5100 UNIT IVPUSH (19:56)
[2024-06-09] MEDS: Morphine Sulfate 4 MG/ML CARTRIDGE IVPUSH ×2 (19:58→23:53)
[2024-06-09 19:59] VITALS: BP 122/70; PULSE 98; RESP 12; TEMP 37; O2SAT 100
[2024-06-09] MEDS: iohexoL 350 MG/ML 100 ML INFUS..BTL 85 ML IV (19:59)
[2024-06-09] MEDS: Heparin Sodium,Porcine/1/2NS 25,000 UNIT/250 ML IV.SOLN 7.53 UNIT IVCONT (20:00)
[2024-06-09] MEDS: Lactated Ringers 1,000 ML 999 ML IV (20:02)
--- NOTE | 2024-06-09 20:12 | PHA.MEDREC ---
Addendum entered by Sanjiv Romero 06/09/24 20:13: reviewed Original Note: Pharmacy Consult ? Medication Reconciliation Pharmacy has completed the medication reconciliation. Patient states he is not taking any medications.
[2024-06-09 20:13] LABS: Ethanol < 10 mg/dL
--- NOTE | 2024-06-09 20:34 | P.HPHOSP_ITS ---
History of Present Illness Date of Service: 06/09/24 Attending physician on admission: Twan Lawson Chief Complaint: Right leg pain Pt is a 48-year-old male without any known significant PMH current pack-a-day smoker who presents to the ED with?worsening right leg swelling and pain. Pt reports approximately 2.5 weeks ago slipped and fell on the ice while working outside. Pt reports he came straight down and heard a ?pop? in his right leg. Ever since then pt has been experiencing increased swelling and pain in left lower leg. Initially thought it was a bruise that he could walk off, pain soon began extending up right leg into his thigh. Pt states he is usually very active and works for the [employer]. However, has had to call out sick the past few days and use crutches to ambulate due to pain. Mother is at bedside. Both deny family hx of clotting disorders. Pt denies any other acute medical complaints. No chest pain/pressure, palpitations. Denies shortness or breath, difficulty breathing, or pleuritic chest pain. No fever, chills, nausea, vomiting, abdominal pain. In the ED pt was tachycardic up to 115 and mildly hypertensive at 141/79, satting at 100% on RA. Labs were significant for leukocytosis of 17.7, H&H 13.6/39.2, sodium 131, and potassium 3.2. Right tibia and fibula x-ray negative for acute abnormality. Right leg venous duplex ultrasound positive for occlusive right lower leg DVT spanning right common femoral vein through popliteal vein and into calf veins. CTA of abdomen/pelvis pending. ED clinician contacted vascular surgery who recommended hospital admission on a heparin drip with NPO past midnight for likely thrombectomy in the morning. Pt was treated with ondansetron, morphine, and started on heparin drip. Pt will be admitted to the hospital for treatment and further evaluation of extensive occlusive right lower leg DVT. Review of Systems 2 Review of Systems: Negative except for that which is stated in the HPI. 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 Meds Allergies Allergy/AdvReac Type Severity Reaction Status Date / Time No Known Allergies Allergy Verified 06/09/24 15:39 Active Medications: Current Medications Acetaminophen (Acetaminophen 325 Mg Tablet) 650 mg PO Q6H PRN PRN Reason: Pain, Mild 1-3,fever,headache Calcium Carbonate (Calcium Carbonate 750 Mg Tab.Chew) 750 mg PO Q4H PRN PRN Reason: Heartburn Heparin Sodium (Porcine) (Heparin Sodium,Porcine 5,000 Unit/Ml Vial) 2,200 unit 40 unit/kg (2200 unit) IVPUSH PROTOCOL BOLUS PRN; Protocol PRN Reason: 40 unit/kg - Heparin Protocol Heparin Sodium (Porcine) (Heparin Sodium,Porcine 5,000 Unit/Ml Vial) 4,300 unit 80 unit/kg (4300 unit) IVPUSH PROTOCOL BOLUS PRN; Protocol PRN Reason: 80 unit/kg - Heparin Protocol Heparin Sodium/Sodium Chloride (Heparin Sodium,Porcine/1/2ns) 25,000 unit in 250 mls @ 0 mls/hr IVCONT .Q0M [facility]; Protocol Last Admin: 06/09/24 20:00 Dose: 14 units/kg/hr, 7.53 mls/hr Magnesium Hydroxide (Milk Of Magnesia 30 Ml Oral.Susp) 30 ml PO DAILY PRN PRN Reason: Constipation Melatonin (Melatonin 3 Mg Tablet) 6 mg PO BEDTIME PRN PRN Reason: Insomnia Morphine Sulfate (Morphine Sulfate 4 Mg/Ml Cartridge) 4 mg IVPUSH Q4H PRN; Protocol PRN Reason: Pain, Severe (Pain Scale 7-10) Ondansetron HCl (Ondansetron Hcl 4 Mg/2 Ml Vial) 4 mg IVPUSH Q8H PRN PRN Reason: Nausea and Vomiting Sodium Chloride (0.9 % Sodium Chloride Flush 3 Ml Syringe) 3 ml IVFLUSH [facility] Home Medications ?Medication ?Instructions ?Recorded ?Confirmed ?Last Taken ?Type No Known Home Meds 06/09/24 06/09/24 Unknown History Physical Exam 2 Vital Signs and Narrative: Vital Signs: Last Vital Signs Temp 98.6 F 06/09/24 19:59 Pulse 98 06/09/24 19:59 Resp 12 06/09/24 19:59 BP 122/70 06/09/24 19:59 Pulse Ox 100 06/09/24 19:59 O2 Del Method Room Air 06/09/24 19:59 BMI result Body Mass Index 17.5 General: AOx3, no acute distress Resp: CTA bilaterally CVS: S1, S2, RRR GI: +BS, NT, no distention Skin: Warm, dry Neuro: Cranial nerves II-XII grossly intact bilaterally. Motor grossly intact bilaterally Extremities: Right lower extremity non-pitting edema from groin to foot. Right calf particularly tender Psych: Appropriate affect Results Labs 06/09/24 19:34 06/09/24 17:00 Labs: Laboratory Results - last 24 hr 06/09/24 06/09/24 17:00 19:34 MCV 91.0 90.2 MCH 31.6 32.4 MCHC 34.7 35.9 RDW 11.9 12.0 Plt Count 433 H 384 MPV 9.3 L 9.2 L Immature Gran % (Auto) 0.6 H Neut % (Auto) 81.8 H Lymph % (Auto) 7.9 L [place] % (Auto) 8.9 Eos % (Auto) 0.5 Baso % (Auto) 0.3 Lymph # (Auto) 1.4 [place] # (Auto) 1.6 H Eos # (Auto) 0.1 Baso # (Auto) 0.1 Abs Immat Gran (auto) 0.10 H Absolute Neuts (auto) 14.5 H Absolute Nucleated RBC 0.000 0.000 Nucleated RBC % (auto) 0.0 0.0 Smear Tech's Comments VERIFIED PT 14.4 H 14.9 H INR 1.2 H 1.3 H APTT 29.5 aPTT Heparin Protocol 28.1 L Anion Gap 15 Estim Creat Clear Calc 100.4 Estimated GFR > 60 Random Glucose 146 H Calcium 9.0 Total Bilirubin 0.9 AST 31 ALT 10 Alkaline Phosphatase 110 Total Protein 7.9 Albumin 3.4 L Ethyl Alcohol < 10 Imaging Radiologist's Impressions: Impressions Tibia/Fibula X-Ray 06/09/24 15:39 IMPRESSION: Unremarkable right tibia and fibula. Electronically signed by: Zak Sarabia MD 06/09/2024 04:34 PM EST RP Venous Duplex 06/09/24 16:01 IMPRESSION: POSITIVE for occlusive right lower leg DVT, spanning the right common femoral vein, through the popliteal vein, into the calf veins. Electronically signed by: Jean-Paul Still MD 06/09/2024 04:25 PM EST RP Assessment and Plan (1) Acute deep vein thrombosis (DVT) of right lower extremity: Status: Acute Plan Pt is a 48-year-old male without any known significant PMH current pack-a-day smoker who presents to the ED with?worsening right leg swelling and pain. Pt reports approximately 2.5 weeks ago slipped and fell on the ice while working outside. Pt will be admitted to the hospital for treatment and further evaluation of extensive occlusive right lower leg DVT. Occlusive right lower extremity DVT Venous duplex U/S positive for occlusive right lower leg DVT from right common femoral vein through popliteal vein and into the calf veins Likely provoked secondary to slip and fall on ice 2.5 weeks ago; pt also an active smoker Denies family hx of hypercoagulable state Continue heparin drip NPO past midnight for likely thrombectomy in the morning Vascular surgery consult Follow CBC Hypernatremia, mild Sodium 131 at time of presentation Pt received IVF Follow BMP Hypokalemia, mild Patient's sodium 3.2 at time of presentation Will supplement with potassium chloride 40 mEq p.o. Trend labs Leukocytosis WBCs 17.7 at time of presentation Likely reactionary in setting of above No sepsis or indication for antibiotics at this time Nicotine dependence NRT Smoking cessation counseled Full Code Attending:?Dr. Lawson DVT Prophylaxis: On heparin drip Pt will require a hospitalization of at least two nights for treatment of?extensive occlusive right lower leg DVT requiring heparin drip and likely thrombectomy. Quality Stroke Does the patient have a stroke diagnosis?: No VTE Prior VTE?: No VTE Risk Level:: Medical - moderate - high VTE Device Contraindication: Treatment Not Indicated VTE Drug Contraindication: N/A - Med Ordered
[2024-06-09] MEDS: Potassium Chloride Packet 20 MEQ PACKET 40 MEQ PO (21:08)
[2024-06-09] MEDS: Thiamine HCL 200 MG in 0.9 % Sodium Chloride 100 ML 204 MG IV (22:12)
[2024-06-09 22:36] LABS: Cholesterol 117 mg/dL (<200); HDL Cholesterol 23 mg/dL (>40); LDL Cholesterol Calculated 71 mg/dL (<100); Triglycerides 118 mg/dL (<150)
[2024-06-09 22:55] VITALS: BP 104/68; PULSE 91; RESP 18; TEMP 37.3; O2SAT 97
[2024-06-09 23:53] VITALS: RESP 16
[2024-06-10] VITALS (23 sets, daily range): BP systolic 104–139; BP diastolic 60–75; PULSE 82–93; RESP 16–28; TEMP 36.5–37.3; O2SAT 95–100; BMI 21.1
[2024-06-10] MEDS: 0.9 % Sodium Chloride Flush 3 ML SYRINGE IVFLUSH ×2 (02:24→20:23)
[2024-06-10 02:37] LABS: PTT Heparin Drip 30.1 SEC (53-77.9)
[2024-06-10] MEDS: Heparin Sodium,Porcine 5,000 UNIT/ML VIAL 4300 UNIT IVPUSH ×2 (03:09→10:08)
[2024-06-10 04:56] LABS: Basophils Absolute Auto 0.1 X10*3/uL (0.0-0.2); Basophils Percent Auto 0.4 % (0-2); Eosinophils Absolute Auto 0.3 X10*3/uL (0.0-0.4); Eosinophils Percent Auto 1.7 % (0-4); Hematocrit 35.1 % (42.0-52.0); Hemoglobin 12.1 g/dl (14.0-18.0); Imm Gran Abs Auto 0.09 X10*3/uL (0.00-0.03); Imm Gran Pct Auto 0.6 % (0.0-0.4); Lymphocytes Absolute Auto 1.9 X10*3/uL (1.2-4.9); MANUAL DIFF FLAG SCAN; Mean Corpuscular HGB Conc 34.5 g/dl (31.0-36.0); Mean Corpuscular Hemoglobin 31.5 pg (27.0-33.0); Mean Corpuscular Volume 91.4 fL (80.0-98.0); Mean Platelet Volume 9.4 fL (9.4-12.4); Monocytes Absolute Auto 1.9 X10*3/uL (0.1-1.2); Monocytes Percent Auto 12.2 % (2-11); Neutrophils Absolute Auto 11.5 x10*3/uL (2.0-8.3); Neutrophils Percent Auto 73.1 % (45-73); Platelet Count 397 X10*3/uL (160-400); Red Blood Count 3.84 X10*6/uL (4.60-5.80); Red Cell Distribution Width 12.1 % (11.0-16.0); SCAN SMEAR FLAG 1; White Blood Count 15.7 X10*3/uL (4.8-10.8)
[2024-06-10 05:14] LABS: Anion Gap 12 (12-20); Blood Urea Nitrogen 4 mg/dL (9-16); Calcium 8.5 mg/dL (8.4-10.2); Carbon Dioxide 23 mmol/L (22-29); Chloride 100 mmol/L (96-108); Creatinine Clr Calc Pharmacy 94.7; Estimated Glomerular Filt Rate > 60; Glucose Random 105 mg/dL (60-115); Potassium 3.4 mmol/L (3.3-5.1); Sodium 132 mmol/L (135-145)
[2024-06-10 05:15] LABS: INTERNATIONAL NORM RATIO 1.3 (0.9-1.1); Prothrombin Time 14.9 SEC (10.9-12.4)
[2024-06-10 05:21] LABS: SLIDE REVIEW VERIFIED
[2024-06-10] MEDS: Morphine Sulfate 4 MG/ML CARTRIDGE IVPUSH ×2 (06:09→10:07)
--- NOTE | 2024-06-10 06:16 | PC.NURSE ---
Pt medicated for pain per MAR. Pt encouraged to let nursing staff know that pain is returning before it gets to a high level. During periods of pain reduction pt is able to rest comfortably in bed. When pain return, pt is restless and visibly uncomfortable. Denies any other needs at this time. Pt is pending admission, will continue to monitor for any changes.
[2024-06-10] MEDS: Heparin Sodium,Porcine/1/2NS 25,000 UNIT/250 ML IV.SOLN 9.68 UNIT IVCONT (07:06)
--- NOTE | 2024-06-10 08:24 | P.PNIM_ITS ---
Subjective Subjective Date of Service: 06/10/24 Interval History: right leg pain and swelling Physical Exam 2 Vital Signs: Vital Signs: Last Vital Signs Temp 98.9 F 06/10/24 06:33 Pulse 85 06/10/24 06:33 Resp 16 06/10/24 06:33 BP 113/65 06/10/24 06:33 Pulse Ox 97 06/10/24 06:33 O2 Del Method Room Air 06/10/24 06:33 BMI result Body Mass Index 17.5 General: AO X 3, no acute distress Resp: CTA bilateral, no accessory muscles used CVS: S1,S2,RRR GI: soft, non tender, non distended Neuro: motor grossly intact, alert Psych: appropriate affect, appropriate insight rle swelling Objective Data Active Medications Acetaminophen (Acetaminophen 325 Mg Tablet) 650 mg PO Q6H PRN PRN Reason: Pain, Mild 1-3,fever,headache Calcium Carbonate (Calcium Carbonate 750 Mg Tab.Chew) 750 mg PO Q4H PRN PRN Reason: Heartburn Heparin Sodium (Porcine) (Heparin Sodium,Porcine 5,000 Unit/Ml Vial) 2,200 unit 40 unit/kg (2200 unit) IVPUSH PROTOCOL BOLUS PRN; Protocol PRN Reason: 40 unit/kg - Heparin Protocol Heparin Sodium (Porcine) (Heparin Sodium,Porcine 5,000 Unit/Ml Vial) 4,300 unit 80 unit/kg (4300 unit) IVPUSH PROTOCOL BOLUS PRN; Protocol PRN Reason: 80 unit/kg - Heparin Protocol Last Admin: 06/10/24 03:09 Dose: 4,300 unit Documented By: MANDY Heparin Sodium/Sodium Chloride (Heparin Sodium,Porcine/1/2ns) 25,000 unit in 250 mls @ 0 mls/hr IVCONT .Q0M [facility]; Protocol Last Admin: 06/10/24 07:06 Dose: 18 units/kg/hr, 9.68 mls/hr Documented By: MURRAY Co-signed By: MANDY Magnesium Hydroxide (Milk Of Magnesia 30 Ml Oral.Susp) 30 ml PO DAILY PRN PRN Reason: Constipation Melatonin (Melatonin 3 Mg Tablet) 6 mg PO BEDTIME PRN PRN Reason: Insomnia Morphine Sulfate (Morphine Sulfate 4 Mg/Ml Cartridge) 4 mg IVPUSH Q4H PRN; Protocol PRN Reason: Pain, Severe (Pain Scale 7-10) Last Admin: 06/10/24 06:09 Dose: 4 mg Documented By: MANDY Nicotine (Nicotine 21 Mg Patch.Td24) 21 mg TRANSDERMA DAILY [facility] Last Admin: 06/09/24 22:16 Dose: Not Given Documented By: SARAH Non-Admin Reason: Patient Refused Ondansetron HCl (Ondansetron Hcl 4 Mg/2 Ml Vial) 4 mg IVPUSH Q8H PRN PRN Reason: Nausea and Vomiting Sodium Chloride (0.9 % Sodium Chloride Flush 3 Ml Syringe) 3 ml IVFLUSH QSHIFT [facility] Last Admin: 06/10/24 02:24 Dose: 3 ml Documented By: MANDY Thiamine HCl (Thiamine Hcl 100 Mg Tablet) 100 mg PO DAILY [facility] Labs 06/10/24 04:30 06/10/24 04:30 Labs: Laboratory Results - last 24 hr 06/09/24 06/09/24 06/10/24 17:00 19:34 02:16 MCV 91.0 90.2 MCH 31.6 32.4 MCHC 34.7 35.9 RDW 11.9 12.0 Plt Count 433 H 384 MPV 9.3 L 9.2 L Immature Gran % (Auto) 0.6 H Neut % (Auto) 81.8 H Lymph % (Auto) 7.9 L [place] % (Auto) 8.9 Eos % (Auto) 0.5 Baso % (Auto) 0.3 Lymph # (Auto) 1.4 [place] # (Auto) 1.6 H Eos # (Auto) 0.1 Baso # (Auto) 0.1 Abs Immat Gran (auto) 0.10 H Absolute Neuts (auto) 14.5 H Absolute Nucleated RBC 0.000 0.000 Nucleated RBC % (auto) 0.0 0.0 Smear Tech's Comments VERIFIED PT 14.4 H 14.9 H INR 1.2 H 1.3 H APTT 29.5 aPTT Heparin Protocol 28.1 L 30.1 L Anion Gap 15 Estim Creat Clear Calc 100.4 Estimated GFR > 60 Random Glucose 146 H Calcium 9.0 Total Bilirubin 0.9 AST 31 ALT 10 Alkaline Phosphatase 110 Total Protein 7.9 Albumin 3.4 L Triglycerides 118 Cholesterol 117 LDL Cholesterol, Calc 71 HDL Cholesterol 23 L Ethyl Alcohol < 10 06/10/24 04:30 MCV 91.4 MCH 31.5 MCHC 34.5 RDW 12.1 Plt Count 397 MPV 9.4 Immature Gran % (Auto) 0.6 H Neut % (Auto) 73.1 H Lymph % (Auto) 12.0 L [place] % (Auto) 12.2 H Eos % (Auto) 1.7 Baso % (Auto) 0.4 Lymph # (Auto) 1.9 [place] # (Auto) 1.9 H Eos # (Auto) 0.3 Baso # (Auto) 0.1 Abs Immat Gran (auto) 0.09 H Absolute Neuts (auto) 11.5 H Absolute Nucleated RBC 0.000 Nucleated RBC % (auto) 0.0 Smear Tech's Comments VERIFIED PT 14.9 H INR 1.3 H APTT aPTT Heparin Protocol Anion Gap 12 Estim Creat Clear Calc 94.7 Estimated GFR > 60 Random Glucose 105 Calcium 8.5 Total Bilirubin AST ALT Alkaline Phosphatase Total Protein Albumin Triglycerides Cholesterol LDL Cholesterol, Calc HDL Cholesterol Ethyl Alcohol Assessment and Plan (1) Acute deep vein thrombosis (DVT) of right lower extremity: Status: Acute Plan 48M PMH nicotine dependence presented with right lower extremity swelling found to have extensive DVT Acute right lower extremity DVT Continue heparin drip, vascular eval for possible thrombectomy Chronic leukocytosis Concern for myeloproliferative disorder, hematology eval Check JAK2 Mild hyponatremia, mild hypokalemia Improving Smoking cessation Full code reason for continued hospitalization: Treating acute DVT Quality Stroke Does the patient have a stroke diagnosis?: No VTE Prior VTE?: No VTE Risk Level:: Medical - moderate - high VTE Device Contraindication: Treatment Not Indicated VTE Drug Contraindication: N/A - Med Ordered
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
[2024-06-10 09:19] LABS: PTT Heparin Drip 34.9 SEC (53-77.9)
--- NOTE | 2024-06-10 09:54 | MHC.CM.PN ---
PT LIVES ALONE IS WORKING AND INDEPENDENT PT HAS OWN RIDE HOME DC PLAN NNAMDI E NO SEFVICES
[2024-06-10] MEDS: 0.9 % Sodium Chloride 1,000 ML 100 ML IVCONT ×2 (09:56→20:22)
--- NOTE | 2024-06-10 11:16 | MHC.CLN ---
NUTRITION WEIGHED PATIENT USING BEDSCALE TODAY. WEIGHT=64.7 KG WITH BMI=21.1. REPORTS POOR PO SINCE LEG PAIN APPROX 2 WEEKS AGO. NO SIGNIFICANT WEIGHT CHANGE NOTED. WILL MONITOR WEEKLY.
--- NOTE | 2024-06-10 12:24 | PC.NURSE ---
Addendum entered by Renee Eddy RN 06/10/24 17:23: Patient back in the room from PACU at 1550 Original Note: Patient off unit for procedure
[2024-06-10] MEDS: Midazolam HCl 2 MG/2 ML VIAL 0.5 MG IVPUSH (13:41)
[2024-06-10] MEDS: fentaNYL citrate/PF 100 MCG/2 ML VIAL 25 MCG IVPUSH (13:42)
[2024-06-10] MEDS: Heparin Sodium,Porcine 10,000 UNIT/10 ML VIAL 5000 UNIT IVPUSH (13:51)
[2024-06-10] MEDS: Heparin Sodium,Porcine 5,000 UNIT/ML VIAL 3000 UNIT IVPUSH (14:02)
--- NOTE | 2024-06-10 14:11 | P.CNHO_ITS ---
Subjective - Subjective Chief complaint: Consult for: DVT. Patient: new to practice Consult date: 06/10/24 Requesting Physician: Fidencio. Primary Care Provider: Doug Thacker MD Family Provider: Kedar. Medical Summary: DIAGNOSIS: BILATERAL DVT. One Piece Expansion Maker Hand Utilized?: No - Wolof Speaking HPI - Consult Narrative Reason for consult: Consult for: Bilateral DVT. Narrative: Dimitri Garcia is a 48 year old gentleman without any known significant PMH current pack-a-day smoker who presented to the ED on 06/09, with?worsening right leg swelling and pain. He reports approximately 2.5 weeks ago slipped and fell on the ice while working outside. He went straight down and heard a ?pop? in his right leg. Ever since then pt has been experiencing increased swelling and pain in left lower leg. Initially thought it was a bruise that he could walk off, pain soon began extending up right leg into his thigh. 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 However, has had to call out sick the past few days and use crutches to ambulate due to pain. Mother is at bedside. Pt denies any other acute medical complaints. No chest pain/pressure, palpitations. Denies shortness or breath, difficulty breathing, or pleuritic chest pain. No fever, chills, nausea, vomiting, abdominal pain. He denies family hx of clotting disorders. Here he was tachycardic up to 115 and mildly hypertensive at 141/79, satting at 100% on RA. Labs were significant for leukocytosis of 17.7, H&H 13.6/39.2, sodium 131, and potassium 3.2. Right tibia and fibula x-ray negative for acute abnormality. Right leg venous duplex ultrasound positive for occlusive right lower leg DVT spanning right common femoral vein through popliteal vein and into calf veins. CTA of abdomen/pelvis: 1. Right profunda femoris, common femoral, and superficial femoral deep vein thrombosis with expanded vein and surrounding fatty induration. This is indirectly evaluated due to lack of venous contrast opacification. No evaluation of thrombus in the iliac veins can be made on this examination. 2. Severe distal aortic stenosis due to a large calcified plaque. ED clinician contacted vascular surgery who recommended hospital admission on a heparin drip with NPO past midnight for likely thrombectomy in the morning. Pt was treated with ondansetron, morphine, and started on heparin drip. Pt was admitted to the hospital for treatment and further evaluation of extensive occlusive right lower leg DVT. Review of Systems 2 Review of Systems: Negative except for that which is stated in the HPI. [facility] Medical History Smoker Surgical History:) Hx of oral surgery History of knee surgery Social History: Alcohol intake: former Patient Tobacco Use Status: Current everyday Tobacco user Tobacco use type: Cigarette Cigarettes Per Day: 10 Smoked in Last 30 Days: Yes Use of substances other than those prescribed or required for medical reasons: No Advance Directives: No Advance Directives Information Provided: Yes Current occupational status: employed Review of Systems - Constitutional Reports system reviewed and no additional complaints, except as documented - Eyes Reports system reviewed and no additional complaints, except as documented - ENT Reports system reviewed and no additional complaints, except as documented - Cardiovascular Reports system reviewed and no additional complaints, except as documented - Respiratory Reports no additional respiratory complaints - Gastrointestinal Reports system reviewed and no additional complaints, except as documented - Genitourinary Genitourinary: Reports no additional male genitourinary complaints - Musculoskeletal Reports system reviewed and no additional complaints, except as documented - Integumentary/Breasts Skin/Breast: Reports no additional skin complaints - Neurologic Reports system reviewed and no additional complaints, except as documented, Denies abnormal gait, Denies vertigo, Denies frequent falls - Psychiatric Reports system reviewed and no additional complaints, except as documented - Endocrine Reports no additional endocrine complaints - Hematologic/Lymphatic Reports system reviewed and no additional complaints, except as documented - Allergic/Immunologic Reports system reviewed and no additional complaints, except as documented Oncology Screenings - ECOG Performance Status ECOG Performance Status: 1 [facility] Medical History: Medical History (Last Reviewed 06/09/24 @ 21:07 by BARTOLO Perez) Smoker Functional capacity: uses cane/walker Patient : No Surgical History: Surgical History (Last Reviewed 06/09/24 @ 21:07 by BARTOLO Perez) History of knee surgery Hx of oral surgery Social History: Social History (Last Reviewed 06/09/24 @ 21:07 by BARTOLO Perez) Living Situation History: Household Members: None Housing: House Do you presently have visiting nurse or other home services: No Tobacco History: Patient Tobacco Use Status: Current everyday Tobacco Tobacco use type: Cigarette Cigarette Packs Per Day: 1 Second Hand Smoke Exposure: No Occupation Assessmet: service: No Current occupational status: employed 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, 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 Home Medications and Allergies Current Medications: Current Medications Acetaminophen (Acetaminophen 325 Mg Tablet) 650 mg PO Q6H PRN PRN Reason: Pain, Mild 1-3,fever,headache Calcium Carbonate (Calcium Carbonate 750 Mg Tab.Chew) 750 mg PO Q4H PRN PRN Reason: Heartburn Heparin Sodium (Porcine) (Heparin Sodium,Porcine 5,000 Unit/Ml Vial) 2,200 unit 40 unit/kg (2200 unit) IVPUSH PROTOCOL BOLUS PRN; Protocol PRN Reason: 40 unit/kg - Heparin Protocol Heparin Sodium (Porcine) (Heparin Sodium,Porcine 5,000 Unit/Ml Vial) 4,300 unit 80 unit/kg (4300 unit) IVPUSH PROTOCOL BOLUS PRN; Protocol PRN Reason: 80 unit/kg - Heparin Protocol Last Admin: 06/10/24 10:08 Dose: 4,300 unit Heparin Sodium/Sodium Chloride (Heparin Sodium,Porcine/1/2ns) 25,000 unit in 250 mls @ 0 mls/hr IVCONT .Q0M [facility]; Protocol Last Titration: 06/10/24 13:26 Dose: 0 units/kg/hr, 0 mls/hr Sodium Chloride (Ns) 1,000 mls @ 100 mls/hr IVCONT .Q10H [facility] Last Infusion: 06/10/24 12:25 Dose: 0 mls/hr Magnesium Hydroxide (Milk Of Magnesia 30 Ml Oral.Susp) 30 ml PO DAILY PRN PRN Reason: Constipation Melatonin (Melatonin 3 Mg Tablet) 6 mg PO BEDTIME PRN PRN Reason: Insomnia Morphine Sulfate (Morphine Sulfate 4 Mg/Ml Cartridge) 4 mg IVPUSH Q4H PRN; Protocol PRN Reason: Pain, Severe (Pain Scale 7-10) Last Admin: 06/10/24 10:07 Dose: 4 mg Nicotine (Nicotine 21 Mg Patch.Td24) 21 mg TRANSDERMA DAILY [facility] Last Admin: 06/09/24 22:16 Dose: Not Given Ondansetron HCl (Ondansetron Hcl 4 Mg/2 Ml Vial) 4 mg IVPUSH Q8H PRN PRN Reason: Nausea and Vomiting Sodium Chloride (0.9 % Sodium Chloride Flush 3 Ml Syringe) 3 ml IVFLUSH [facility]IST. [facility] Last Admin: 06/10/24 08:26 Dose: Not Given Thiamine HCl (Thiamine Hcl 100 Mg Tablet) 100 mg PO DAILY [facility] Allergies Allergy/AdvReac Type Severity Reaction Status Date / Time No Known Allergies Allergy Verified 06/09/24 15:39 Physical Exam Vital signs: Vital Signs Temp 97.7 F 06/10/24 08:00 Pulse 91 06/10/24 14:10 Resp 25 H 06/10/24 14:10 BP 129/69 06/10/24 14:10 Pulse Ox 100 06/10/24 14:10 O2 Del Method Nasal Cannula 06/10/24 14:10 O2 Flow Rate 2 06/10/24 14:10 Intake & Output 06/09/24 06/10/24 06/10/24 18:59 06:59 18:59 Intake Total 1154.208 / 1154.208 514.884 / 514.884 Balance 1154.208 / 1154.208 514.884 / 514.884 Intake: Intake, IV Amount 1154.208 / 1154.208 514.884 / 514.884 Lactated Ringers 1,000 ml @ 999 1000 / 1000 mls/hr IV .Q1H1M [facility] Rx#: [id number] Thiamine HCL 200 mg In 0.9 % 102 / 102 Sodium Chloride 100 ml @ 204 mls/hr IV ONCE ONE Rx#: [id number] 0.9 % Sodium Chloride 1,000 ml 248.333 / 248.333 @ 100 mls/hr IVCONT .Q10H [facility] Rx#:[id number] Heparin Sodium,Porcine/1/2NS 25 52.208 / 52.208 266.551 / 266.551 ,000 unit In 250 ml @ Per Protocol IVCONT .Q0M [facility] Rx#: [id number] Other: NPO Yes Weight 63.503 kg 53.8 kg 64.7 kg [place] Weight in Grams 68196 Weight 64.7 kg - Constitutional Present: moderate distress - Routine HEENT Exam Head: Present: normal inspection, normocephalic ENT: Present: normal exam - Routine Neck Exam Present: supple - Routine Respiratory Exam Present: CTAB - Routine Cardiovascular Exam Cardiovascular: Present: RRR, S1, S2 - Routine Abdominal Exam Present: nontender - Routine Skin Exam Present: intact - Routine Neurological Exam Present: alert, oriented X3 - Detailed Neurological Exam: Coma Scale Eye Opening: Spontaneous (4) Verbal Response: Oriented (5) Motor Response: Obeys commands (6) Lambert Coma Scale Total: 15 Hem/Onc Consult Result - Labs CBC & Chem 7: 06/11/24 05:55 06/11/24 05:55 Labs: Short CBC 06/09/24 06/09/24 06/10/24 Range/Units 17:00 19:34 04:30 WBC 17.7 H 17.2 H 15.7 H (4.8-10.8) X10*3/uL Hgb 13.6 L 12.9 L 12.1 L (14.0-18.0) g/dl Hct 39.2 L 35.9 L 35.1 L (42.0-52.0) % Plt Count 433 H 384 397 (160-400) X10*3/uL BMP 06/09/24 06/10/24 17:00 04:30 Sodium 131 L 132 L Potassium 3.2 L 3.4 Chloride 94 L 100 Carbon Dioxide 25 23 BUN 6 L 4 L Creatinine 0.79 0.71 Calcium 9.0 8.5 Liver Function 06/09/24 Range/Units 17:00 Total Bilirubin 0.9 (0.0-1.0) mg/dL AST 31 (5-37) U/L ALT 10 (0-40) U/L Alkaline Phosphatase 110 (39-117) U/L Albumin 3.4 L (3.5-5.0) g/dL Assessment and Plan Patient Active problem list reviewed?: Yes (1) Acute deep vein thrombosis (DVT) of right lower extremity Status: Acute Assessment and plan: This is a pleasant 48-year-old gentleman, who presented with bilateral lower extremity swelling and pain. The patient's venous ultrasound which demonstrates: Right femoral and popliteal clot. The CT scan demonstrates: No evidence of filter or stent no evidence central clot. The patient would benefit from a right leg mechanical venous thrombectomy. This has been discussed in detail with the patient along with risks, benefits, and complications. This includes but is not limited to bleeding, infection, heart attack, need for emergent surgical repair, limb ischemia, blood vessel damage, bleeding, puncture, kidney injury, bruising, allergic reaction, and skin reaction. PLAN: He is scheduled for 13:00 today. He will subsequently be maintained on oral anticoagulant. Thank you for this consult, I will follow along with you, CC: Dr. Khanh Thacker. Addendum: 06/10/24: Procedure: 1 Ultrasound-guided right popliteal vein access 2. Inferior vena cavogram 3. Percutaneous transluminal venous mechanical thrombectomy (03237) 4. Radiologic super visual and interpretation Conclusion: 1. Successful mechanical clot removal. 2. Anticoagulation status: Resume heparin drip at previous rate immediate. Tomorrow may start oral anticoagulation. 06/11/24. CT scan of the abdomen pelvis revealed: IMPRESSION: 1. No acute obstructive uropathy or urolithiasis. 2. No obstructive or acute inflammatory changes in the gastrointestinal tract. 3. Small subpleural infiltrate in the left lower lobe, new since prior study. 4. Indeterminate 8 mm left lower lobe pulmonary nodule. Follow-up dedicated CT chest is suggested on a nonemergent basis. - Time Spent With Patient Time Spent with Patient (in minutes): 30
--- NOTE | 2024-06-10 14:42 | W.PM.OPN ---
Operative Note Operative Note Date of Service: 06/10/24 Narrative: Operative note by [facility] Preoperative diagnosis: Deep venous thrombosis of right lower extremity Postoperative diagnosis: Same Procedure: 1 Ultrasound-guided right popliteal vein access 2. Inferior vena cavogram 3. Percutaneous transluminal venous mechanical thrombectomy (00333) 4. Radiologic super visual and interpretation Surgeon:Omero Osborn M.D. Plaster Block Layer: None Anesthesia: Local with moderate conscious sedation. Total intra service moderate sedation time was 59 minutes. I monitored the patient's level of consciousness and physiologic status continuously throughout the procedure Specimen: None Drains: None Estimated blood loss: 50 mL Implant: None Comorbid conditions: Acute DVT status post fall Indications: 48-year-old gentleman who a proximally 2 weeks ago had a fall on the ice. Did not recognize any issues until the last day or so where he had excruciating pain was unable to ambulate presented to the emergency room with acute DVT. The plan of care is mechanical thrombectomy of the lower extremity veins. The patient has signed the informed consent after reviewing risks, complications, benefits, and alternatives previously discussed with the patient. The patient was given the opportunity to ask any additional questions or voice any concerns. All questions were answered to the patient's satisfaction. Procedure in detail: Patient was brought to the Angiography suite prior to which a time-out was called for patient identification and site verification. The patient was placed in a prone position. Bilateral popliteal fossas were prepped out. We first access the right popliteal vein under ultrasound guidance. We then placed a percutaneous 5 Wallisian sheath. We were then able to traverse the clot with a Glidewire Advantage 035 wire. We brought in a trail Blazer catheter to confirmed true lumen. At this time 5000 units of heparin was administered. After 5 minutes of circulation time we then dilated up the tract. The Clot Triever over the wire system was then brought into position. We placed the clot triever sheath and exposed the self expanding Nitinol mesh funnel to facilitate clot removal for large-bore side port rapid aspiration. Once this was accomplished we then advanced over the wire the clot triever catheter with the coring element and braided collection bag. This was brought into the inferior vena cava up past this occlusion and extracted back. We did 4 sequential passes. The main angle of the catheter was placed at the 12:00 o'clock, 03:00 o'clock, 06:00 o'clock, and 09:00 o'clock positions. After each pass had been completed, large amount of clot was removed. After each subsequent pass the clot was removed and it was flushed clear and we then brought it in again through this area. Completion venogram demonstrated an excellent result. We subsequently removed catheter wire in sheath. Pursestring suture was placed Direct pressure was held for 10 minutes. Sterile dressing was applied. Patient was brought to the recovery room with stable vitals. Interpretation of films: 1. Ultrasound was used to evaluate access site. Popliteal vein did note to have thrombus. Ultrasound was used to visualize needle entry. Image of ultrasound was saved on PACS 2. Vena cavogram demonstrated thrombus in the distal vena cava along the end attire iliofemoral system down into the popliteal vein. 3. Completion vena cavogram demonstrated resolution of clot. Conclusion: 1. Successful mechanical clot removal. 2. Anticoagulation status: Resume heparin drip at previous rate immediate. Tomorrow may start oral anticoagulation. This note is constructed using voice recognition software. While every effort has been made to ensure accuracy, juvenile counselor errors may have been included. Thank you for allowing me to participate in the care of your patient. Yours sincerely, Omero Osborn MD, FACS, R.P.V.I.
[2024-06-10] MEDS: Morphine Sulfate 2 MG/ML CARTRIDGE 4 MG IVPUSH ×2 (15:15→20:05)
[2024-06-10 16:55] LABS: PTT Heparin Drip 79.9 SEC (53-77.9)
[2024-06-10] MEDS: oxyCODONE HCl Immed Release 5 MG TABLET PO (17:58)
[2024-06-10] MEDS: Heparin Sodium,Porcine/1/2NS 25,000 UNIT/250 ML IV.SOLN 10.76 UNIT IVCONT (20:18)
[2024-06-10 23:38] LABS: PTT Heparin Drip 34.6 SEC (53-77.9)
--- NOTE | 2024-06-11 | ECG_ITS ---
Test Reason : cp Blood Pressure : */* mmHG Vent. Rate : 87 BPM Atrial Rate : 87 BPM P-R Int : 146 ms QRS Dur : 92 ms QT Int : 368 ms P-R-T Axes : 76 44 62 degrees QTcB Int : 442 ms Normal sinus rhythm Normal ECG When compared with ECG of 23-Apr-2011 09:15, MANUAL COMPARISON REQUIRED PREVIOUS ECG IS INCOMPATIBLE Referred By: Booker Nicolas Electronically Signed By: FERNY LANDIN MD
[2024-06-11] MEDS: Heparin Sodium,Porcine/1/2NS 25,000 UNIT/250 ML IV.SOLN 12.91 UNIT IVCONT (00:05)
[2024-06-11] MEDS: Heparin Sodium,Porcine 5,000 UNIT/ML VIAL 4300 UNIT IVPUSH (00:07)
[2024-06-11] MEDS: Morphine Sulfate 2 MG/ML CARTRIDGE 4 MG IVPUSH ×2 (01:20→12:19)
[2024-06-11 06:03] LABS: Hematocrit 33.2 % (42.0-52.0); Hemoglobin 11.5 g/dl (14.0-18.0); Mean Corpuscular HGB Conc 34.6 g/dl (31.0-36.0); Mean Corpuscular Volume 92.5 fL (80.0-98.0); Mean Platelet Volume 9.2 fL (9.4-12.4); Platelet Count 350 X10*3/uL (160-400); Red Blood Count 3.59 X10*6/uL (4.60-5.80); Red Cell Distribution Width 12.3 % (11.0-16.0); White Blood Count 12.9 X10*3/uL (4.8-10.8)
[2024-06-11 06:12] LABS: PTT Heparin Drip 59.7 SEC (53-77.9)
[2024-06-11 06:16] LABS: Anion Gap 11 (12-20); Blood Urea Nitrogen 4 mg/dL (9-16); Calcium 8.5 mg/dL (8.4-10.2); Carbon Dioxide 23 mmol/L (22-29); Chloride 100 mmol/L (96-108); Creatinine Clr Calc Pharmacy 107.8; Estimated Glomerular Filt Rate > 60; Glucose Random 135 mg/dL (60-115); Potassium 3.3 mmol/L (3.3-5.1); Sodium 131 mmol/L (135-145)
--- NOTE | 2024-06-11 06:20 | PC.NURSE ---
Approximately 0600, the patient c/o sudden chest pain and difficulty breathing. He stated, It hurts so bad and I can't breathe. He pointed just around 6th intercostal-midclavicular line and described the pain to be pressing and sharp at the same time. PRN morphine was administered right away and vital signs were taken. A hospitalist Dr. Lawson was notified immediately with the initial vital signs along with patient's presentation. EKG was taken without any acute abnormality. 4L oxygen was placed for comfort. The provider was contacted again with repeat vital signs with his complaints. The provider responded that no further action is required as he's on heparin already. Blood work was done at this time where scheduled PTT-HD was drawn together. Patient was monitored closely at bedside and responded well with morphine, but the chest pain did not improve much. Patient education was given about DVT, possible conflicts after thrombectomy, and significance and effect of heparin gtt along with ongoing treatment and EKG result - patient verbalized understanding. Patient remains on 4L NC maintaining O2 Sat >95% with otherwise stable vital signs. R leg shows less swelling, firmness, and redness along with less tenderness and warmth. Pulses are well palpable on all extremities. Will continue to monitor.
[2024-06-11] MEDS: 0.9 % Sodium Chloride 1,000 ML 100 ML IVCONT (06:43)
[2024-06-11 06:51] VITALS: BP 133/63; PULSE 83; RESP 17; TEMP 36.6; O2SAT 98
[2024-06-11] MEDS: Thiamine HCL 100 MG TABLET PO ×2 (07:59→08:06)
[2024-06-11] MEDS: Apixaban 5 MG TABLET 10 MG PO (08:06)
--- NOTE | 2024-06-11 09:12 | P.PNIM_ITS ---
Subjective Subjective Date of Service: 06/11/24 Interval History: Right leg pain resolved, now with left flank pain Physical Exam 2 Vital Signs: Vital Signs: Last Vital Signs Temp 97.9 F 06/11/24 06:51 Pulse 83 06/11/24 06:51 Resp 17 06/11/24 06:51 BP 133/63 06/11/24 06:51 Pulse Ox 98 06/11/24 06:51 O2 Del Method Nasal Cannula 06/11/24 06:51 O2 Flow Rate 4 06/11/24 06:51 BMI result Body Mass Index 21.1 General: AO X 3, no acute distress Resp: CTA bilateral, no accessory muscles used CVS: S1,S2,RRR GI: soft, non tender, non distended Neuro: motor grossly intact, alert Psych: appropriate affect, appropriate insight Objective Data Active Medications Acetaminophen (Acetaminophen 325 Mg Tablet) 650 mg PO Q6H PRN PRN Reason: Pain, Mild 1-3,fever,headache Acetaminophen (Acetaminophen 325 Mg Tablet) 650 mg PO Q6H PRN PRN Reason: Pain, Mild (Pain Scale 1-3) Apixaban (Apixaban 5 Mg Tablet) 10 mg PO BID [facility] Stop: 06/17/24 21:01 Last Admin: 06/11/24 08:06 Dose: 10 mg Documented By: HEATHER Calcium Carbonate (Calcium Carbonate 750 Mg Tab.Chew) 750 mg PO Q4H PRN PRN Reason: Heartburn Sodium Chloride (Ns) 1,000 mls @ 100 mls/hr IVCONT .Q10H [facility] Last Admin: 06/11/24 06:43 Dose: 100 mls/hr Documented By: LISA Magnesium Hydroxide (Milk Of Magnesia 30 Ml Oral.Susp) 30 ml PO DAILY PRN PRN Reason: Constipation Melatonin (Melatonin 3 Mg Tablet) 6 mg PO BEDTIME PRN PRN Reason: Insomnia Morphine Sulfate (Morphine Sulfate 2 Mg/Ml Cartridge) 4 mg IVPUSH Q4H PRN; Protocol PRN Reason: Pain, Severe (Pain Scale 7-10) Last Admin: 06/11/24 01:20 Dose: 4 mg Documented By: LISA Nicotine (Nicotine 21 Mg Patch.Td24) 21 mg TRANSDERMA DAILY [facility] Last Admin: 06/11/24 07:59 Dose: Not Given Documented By: HEATHER Non-Admin Reason: Patient Refused Ondansetron HCl (Ondansetron Hcl 4 Mg/2 Ml Vial) 4 mg IVPUSH Q8H PRN PRN Reason: Nausea and Vomiting Oxycodone HCl (Oxycodone Hcl Immed Release 5 Mg Tablet) 5 mg PO Q4H PRN PRN Reason: Pain, Moderate(Pain Scale 4-6) Last Admin: 06/10/24 17:58 Dose: 5 mg Documented By: LEXY Sodium Chloride (0.9 % Sodium Chloride Flush 3 Ml Syringe) 3 ml IVFLUSH QSHIFT [facility] Last Admin: 06/11/24 08:06 Dose: Not Given Documented By: HEATHER Non-Admin Reason: IV Running Thiamine HCl (Thiamine Hcl 100 Mg Tablet) 100 mg PO DAILY [facility] Last Admin: 06/11/24 08:06 Dose: 100 mg Documented By: HEATHER Labs 06/11/24 05:55 06/11/24 05:55 Labs: Laboratory Results - last 24 hr 06/10/24 06/10/24 06/10/24 08:56 16:32 23:21 MCV MCH MCHC RDW Plt Count MPV Absolute Nucleated RBC Nucleated RBC % (auto) aPTT Heparin Protocol 34.9 L 79.9 H D 34.6 L D Anion Gap Estim Creat Clear Calc Estimated GFR Random Glucose Calcium Magnesium 06/11/24 06/11/24 06/11/24 05:55 05:55 05:55 MCV 92.5 MCH 32.0 MCHC 34.6 RDW 12.3 Plt Count 350 MPV 9.2 L Absolute Nucleated RBC 0.000 Nucleated RBC % (auto) 0.0 aPTT Heparin Protocol 59.7 D Anion Gap 11 L Estim Creat Clear Calc Cancelled 107.8 Estimated GFR Cancelled > 60 Random Glucose 135 H Calcium 8.5 Magnesium 2.0 Assessment and Plan (1) Acute deep vein thrombosis (DVT) of right lower extremity: Status: Acute Plan 48M PMH nicotine dependence presented with right lower extremity swelling found to have extensive DVT Acute right lower extremity DVT Status post thrombectomy 06/10/2024 Change IV heparin to Eliquis Follow up Hematology Left flank pain Check CT abdomen pelvis Chronic leukocytosis Concern for myeloproliferative disorder, hematology eval Check JAK2 Mild hyponatremia, mild hypokalemia Improving Smoking cessation Full code reason for continued hospitalization: Working up left flank pain Quality Stroke Does the patient have a stroke diagnosis?: No VTE Prior VTE?: No VTE Risk Level:: Medical - moderate - high VTE Device Contraindication: Treatment Not Indicated VTE Drug Contraindication: N/A - Med Ordered
[2024-06-11] MEDS: oxyCODONE HCl Immed Release 5 MG TABLET PO (10:53)
[2024-06-11 12:52] LABS: PTT Heparin Drip 35.6 SEC (53-77.9)
--- NOTE | 2024-06-11 14:11 | P.DS_ITS ---
DS: Providers Provider Date of Service: 06/11/24 Date of admission: 06/09/24 20:31 Date of discharge: 06/11/24 Primary care physician: Doug Thacker MD Consults: 06/09/24 20:31 Consult to Vascular Surgery Routine Consulting Provider: [facility] [place] Vascular Services Reason for consultation: right leg DVT 06/10/24 07:55 Consult to Hematology / Oncology Routine Consulting Provider: [facility] [place] Oncology/Hematology Reason for consultation: DVT, chronic leukocytosis DS: Diagnosis Discharge Diagnosis (1) Acute deep vein thrombosis (DVT) of right lower extremity: Status: Acute DS: Summary Hospital Course Hospital Course: from initial hpi: 48-year-old male without any known significant PMH current pack-a-day smoker who presents to the ED with?worsening right leg swelling and pain. Pt reports approximately 2.5 weeks ago slipped and fell on the ice while working outside. Pt reports he came straight down and heard a ?pop? in his right leg. Ever since then pt has been experiencing increased swelling and pain in left lower leg. Initially thought it was a bruise that he could walk off, pain soon began extending up right leg into his thigh. Pt states he is usually very active and works for the [employer]. However, has had to call out sick the past few days and use crutches to ambulate due to pain. Mother is at bedside. Both deny family hx of clotting disorders. Pt denies any other acute medical complaints. No chest pain/pressure, palpitations. Denies shortness or breath, difficulty breathing, or pleuritic chest pain. No fever, chills, nausea, vomiting, abdominal pain. In the ED pt was tachycardic up to 115 and mildly hypertensive at 141/79, satting at 100% on RA. Labs were significant for leukocytosis of 17.7, H&H 13.6/39.2, sodium 131, and potassium 3.2. Right tibia and fibula x-ray negative for acute abnormality. Right leg venous duplex ultrasound positive for occlusive right lower leg DVT spanning right common femoral vein through popliteal vein and into calf veins. CTA of abdomen/pelvis pending. ED clinician contacted vascular surgery who recommended hospital admission on a heparin drip with NPO past midnight for likely thrombectomy in the morning. Pt was treated with ondansetron, morphine, and started on heparin drip. Pt will be admitted to the hospital for treatment and further evaluation of extensive occlusive right lower leg DVT. hospital course: Patient was admitted for acute right lower extremity DVT. He underwent thrombectomy on 06/10/2024 and had immediate relief. Was treated with IV heparin until after procedure and now switched to Eliquis. He will follow up with Hematology for hypercoagulable workup. For chronic leukocytosis Check to was drawn and should be followed up. For mild hyponatremia and mild hyperkalemia this improved. For smoking cessation given nicotine. Patient reports history of alcohol dependence, complete abstinence is recommended. Time Attestation Discharge Coordination Time (in mins): 37 Quality: Safe Use of Opioids Does Pt have an Active Cancer Diagnosis on the Problem List?: No Quality: Stroke Does the patient have a stroke diagnosis?: No Physical Exam Vital Signs: Vital Signs: Last Vital Signs Temp 97.9 F 06/11/24 06:51 Pulse 83 06/11/24 06:51 Resp 17 06/11/24 06:51 BP 133/63 06/11/24 06:51 Pulse Ox 98 06/11/24 06:51 O2 Del Method Nasal Cannula 06/11/24 06:51 O2 Flow Rate 4 06/11/24 06:51 BMI result Body Mass Index 21.1 General: AO X 3, no acute distress Resp: CTA bilateral, no accessory muscles used CVS: S1,S2,RRR GI: soft, non tender, non distended Neuro: motor grossly intact, alert Psych: appropriate affect, appropriate insight DS: Data Data Completed and Pending Labs on day of discharge: Laboratory Results - last 24 hr 06/10/24 06/10/24 06/11/24 16:32 23:21 05:55 WBC 12.9 H RBC 3.59 L Hgb 11.5 L Hct 33.2 L MCV 92.5 MCH 32.0 MCHC 34.6 RDW 12.3 Plt Count 350 MPV 9.2 L Absolute Nucleated RBC 0.000 Nucleated RBC % (auto) 0.0 aPTT Heparin Protocol 79.9 H D 34.6 L D 59.7 D Sodium 131 L Potassium 3.3 Chloride 100 Carbon Dioxide 23 Anion Gap 11 L BUN 4 L Creatinine Cancelled Estim Creat Clear Calc Estimated GFR Random Glucose Calcium Magnesium 06/11/24 06/11/24 06/11/24 05:55 05:55 05:55 WBC RBC Hgb Hct MCV MCH MCHC RDW Plt Count MPV Absolute Nucleated RBC Nucleated RBC % (auto) aPTT Heparin Protocol Sodium Potassium Chloride Carbon Dioxide Anion Gap BUN Creatinine 0.75 Estim Creat Clear Calc Cancelled 107.8 Estimated GFR Cancelled > 60 Random Glucose 135 H Calcium 8.5 Magnesium 2.0 06/11/24 12:29 WBC RBC Hgb Hct MCV MCH MCHC RDW Plt Count MPV Absolute Nucleated RBC Nucleated RBC % (auto) aPTT Heparin Protocol 35.6 L D Sodium Potassium Chloride Carbon Dioxide Anion Gap BUN Creatinine Estim Creat Clear Calc Estimated GFR Random Glucose Calcium Magnesium Discharge Plan Discharge Anticipated Discharge Date/Time: 06/11/24 14:08 Patient Disposition: Home, Self-Care Discharge Diagnosis: dvt Referrals: Omero Osborn MD [Physician] - 1 Week Timothy Coles MD [Physician] - 1 Week Doug Thacker MD [Primary Care Provider] - 1 Week Discharge Medications: New Eliquis 5 mg Tablet 10 mg PO BID Qty: 112 0RF Rx Instructions: 10mg bid for 6 more days, then decrease to 5mg bid oxycodone 5 mg Tablet 5 mg PO Q4H PRN (Reason: Pain, Moderate(Pain Scale 4-6)) 2 Days Qty: 7 0RF Rx Instructions: Partial Fill upon patient request. Diet: Advance to usual diet Activity on Discharge: As tolerated Stand Alone Forms: Patient Portal Discharge page Print Language: Bahraini Care Plan Goals: recovery Health Concerns: dvt, pvd Plan of Treatment: 6 more days eliquis 10mg twice daily, then decrease to 5mg twice daily follow up with hematology and vascular avoid alcohol Assessment: see above
--- NOTE | 2024-06-11 14:22 | MHC.CM.PN ---
PT CLEARED TO DC HOME TODAY WITH NO SERVICES VIA PRIVATE TRANSPORT
[2024-06-13 12:27] LABS: ACT 129 Celite s (79-173)
[2024-06-13 12:27] LABS: ACT 178 Celite s (79-173)
[2024-06-13 12:27] LABS: ACT 178 Celite s (79-173)
== END 2024-06-11 15:05 | disposition home or self-care (01) | DRG 182 ==
LOC: HO.ED 19:54 → HO.EDOVER 20:51 → HO.S3 06-10 07:35
PROVIDERS: Physician Assistant; Student in an Organized Health Care Education/Training Program; Surgery Vascular Surgery; Admitting Provider Student in an Organized Health Care Education/Training Program; Emergency Provider Student in an Organized Health Care Education/Training Program; PCP Internal Medicine; Visit Provider Internal Medicine
PROC: 04CM3ZZ Extirpation of Matter from Right Popliteal Artery, Percutaneous Approach (ICD-10-PCS; principal; 2024-06-10 13:00)
DX: I82.431 Acute embolism and thrombosis of right popliteal vein (principal); E87.0 Hyperosmolality and hypernatremia; I82.411 Acute embolism and thrombosis of right femoral vein; I82.4Z1 Acute embolism and thrombosis of unspecified deep veins of right distal lower extremity; F17.210 Nicotine dependence, cigarettes, uncomplicated; Z71.6 Tobacco abuse counseling; E87.6 Hypokalemia; F10.21 Alcohol dependence, in remission
CPT/HCPCS: 36415; 37187; 73590; 74174; 74176; 76937; 80048; 80053; 80061; 80307; 81219; 81270; 81279; 81339; 82565; 83735; 85025; 85027; 85347; 85610; 85730; 93005; 93971; 99152; 99153; 99285; C1757; C1769; C1894; J1644; J2250; J2270; J2310; J2405; J3010; J3411; J7120; Q9967

== ENCOUNTER → 2024-06-09 15:39 | Outpatient (BNV) | payer BC, SELFPAY | PROVIDERS: PCP Internal Medicine; Visit Provider Radiology Diagnostic Radiology | DX: I73.9 Peripheral vascular disease, unspecified (principal); I25.84 Coronary atherosclerosis due to calcified coronary lesion | CPT/HCPCS: 74174 ==

== ENCOUNTER 2024-06-09 20:31 | Outpatient (BNV) | payer BC, SELFPAY | END 2024-06-11 13:37 | PROVIDERS: Admitting Provider Student in an Organized Health Care Education/Training Program; Emergency Provider Student in an Organized Health Care Education/Training Program; PCP Internal Medicine; Visit Provider Radiology Diagnostic Radiology | DX: R91.8 Other nonspecific abnormal finding of lung field (principal); R91.1 Solitary pulmonary nodule | CPT/HCPCS: 74176 ==

== ENCOUNTER 2024-06-09 20:31 | Outpatient (BNV) | payer BC, SELFPAY | END 2024-06-11 06:02 | PROVIDERS: Admitting Provider Student in an Organized Health Care Education/Training Program; Emergency Provider Student in an Organized Health Care Education/Training Program; PCP Internal Medicine; Visit Provider Internal Medicine Cardiovascular Disease | DX: R07.9 Chest pain, unspecified (principal) | CPT/HCPCS: 93010 ==

== ENCOUNTER → 2024-06-09 20:31 | Outpatient (BNV) | payer BC, SELFPAY | PROVIDERS: Admitting Provider Student in an Organized Health Care Education/Training Program; Emergency Provider Student in an Organized Health Care Education/Training Program; PCP Internal Medicine; Visit Provider Student in an Organized Health Care Education/Training Program | DX: I82.401 Acute embolism and thrombosis of unspecified deep veins of right lower extremity (principal) | CPT/HCPCS: 99223 ==

== ENCOUNTER → 2024-06-09 20:31 | Outpatient (BNV) | payer BC, SELFPAY | PROVIDERS: Admitting Provider Student in an Organized Health Care Education/Training Program; Emergency Provider Student in an Organized Health Care Education/Training Program; PCP Internal Medicine; Visit Provider Internal Medicine Medical Oncology | DX: I82.411 Acute embolism and thrombosis of right femoral vein (principal) | CPT/HCPCS: 99222 ==

== ENCOUNTER → 2024-06-09 20:31 | Outpatient (BNV) | payer BC, SELFPAY | PROVIDERS: Admitting Provider Student in an Organized Health Care Education/Training Program; Emergency Provider Student in an Organized Health Care Education/Training Program; PCP Internal Medicine; Visit Provider Surgery Vascular Surgery | DX: I82.411 Acute embolism and thrombosis of right femoral vein (principal) | CPT/HCPCS: 37187; 99152; 99222 ==

== ENCOUNTER 2024-06-28 15:05 | Outpatient (AMB) | payer BC, SELFPAY ==
--- NOTE | 2024-06-28 15:08 | A.OFFVIS_ITS ---
Vital Signs 06/28/24 15:10 Height 5 ft 9 in Weight 142 lb BMI 21.0 Intake Visit Reasons: follow up R leg venous thrombectomy 06/10/2024 Intake Note: Right Thrombectomy 06/10/24, he does have a suture. Pt states leg is doing better but is sore because he works on his feet. Accompanied by: Self / Same As Patient Allergies No Known Allergies Allergy (Verified 06/28/24 15:13) HPI HPI follow up R leg venous thrombectomy 06/10/2024: Details: Dimitri is presenting today on a follow up to a right lower extremity venous thrombectomy on 06/10/2024. He states he has been doing very well status post procedure. He has decreased his smoking to 5-8 cigarettes a day, down from a pack per day. He has been back to work and he continues wear compression stockings daily. He continues taking the Eliquis as well. He does endorse some issues behind his knee where the suture is sticking out. He denies any pain but states it is very itchy. He has no new concerns today. 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 Review of Systems Const Reports as per HPI and Denies weakness ENT Reports Normal hearing present and Denies dizziness Card Reports as per HPI, Denies chest pain, Denies chest pain at rest, Denies chest pain with activity, Denies dyspnea and Denies dyspnea on exertion Resp Reports as per HPI, Denies cough, Denies dyspnea and Denies dyspnea on exertion GI Reports as per HPI, Denies abdominal pain, Denies nausea and Denies vomiting Musc Denies numbness Skin/Breast Reports as per HPI, Denies erythema and Denies wounds Neuro Reports Normal hearing present, Denies dizziness, Denies numbness, Denies Sensory deficit (Neuro) and Denies weakness Psych Reports no additional complaints Endo Reports no additional complaints Physical Exam Vital Signs: BMI result Body Mass Index 21.0 Const General: healthy appearing and no acute distress Orientation/consciousness: patient oriented x3 HEENT Head: Yes normal to inspection Ears: hearing grossly normal bilaterally Mouth: Normal oral and palatal mucosa present Resp Effort & Inspection: normal respiratory effort and able to speak in complete sentences Auscultation: clear to auscultation bilaterally Cardio Jugular venous distension: no JVD Rate: regular rate Rhythm: regular rhythm Heart sounds: S1 normal heart sound present and S2 normal heart sound present Bruits: no abdominal aortic bruits, no carotid bruits, no femoral bruits and no renal bruits Peripheral pulses: Peripheral pulses 2+ throughout GI Inspection: Yes normal to inspection Palpation (GI): No Abdominal aortic bruit present Skin General skin exam: no rashes or lesions noted Wounds: no wounds Hair: normal Neuro General: patient oriented x3 Cranial nerves: Yes Normal hearing present Cognition (Neuro): normal cognition Gait exam (Neuro): Normal gait present Motor exam (neuro): 5/5 motor strength present throughout Sensory Exam: No Sensory deficit (Neuro) Extrem Other: Right posterior knee: Incision site is clean, dry, and intact. Suture intact, easily removed with a suture removal kit. No bleeding or discharge noted. General: Yes normal to inspection, Yes full ROM, Yes capillary refill normal and Yes normal gait Assessment & Plan Assessment & Plan (1) Acute deep vein thrombosis (DVT) of right lower extremity: Code(s): I82.401 - Acute embolism and thrombosis of unspecified deep veins of right lower extremity Category: Medical Qualifiers: Affected thrombotic vein of extremity: femoral Qualified Code(s): I82.411 - Acute embolism and thrombosis of right femoral vein Plan: Dimitri is s/p right lower extremity thrombectomy, 06/10/24. He states he has been doing well since. He denies any pain. He states he is feeling much better. We removed the suture from the posterior knee without difficulty. He has also cut back on smoking, from 1 ppd down to 5-8 cigarettes a day. We discussed the importance of smoking cessation and are encouraging him to do so. We discussed the importance of physical activity and a healthy, well balanced diet. We will have him continue on Eliquis for 3m. We discussed that if he had any other vascular concerns, to reach back out to us. Thank you for allowing us to participate in the patient's care. If there are any questions or concerns, please do not hesitate to reach out to us. Coding Level of Care Code Est Pt Level 4 (46418) Diagnoses Acute deep vein thrombosis (DVT) of femoral vein of right lower extremity I82.411 Affected thrombotic vein of extremity: femoral
[2024-06-28 15:10] VITALS: BMI 21.0
== END 2024-06-28 15:25 | disposition home or self-care (01) ==
LOC: HO.HVS 15:06
PROVIDERS: PCP Internal Medicine; Visit Provider Physician Assistant Surgical
DX: I82.411 Acute embolism and thrombosis of right femoral vein (principal)
CPT/HCPCS: 99214

== ENCOUNTER 2024-07-04 15:58 | Outpatient (AMB) | payer BC, SELFPAY ==
[2024-07-04 16:28] VITALS: BP 142/80; PULSE 92; RESP 14; TEMP 36.7; O2SAT 99; BMI 21.4
--- NOTE | 2024-07-04 16:28 | A.OFFPC_ITS ---
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 Mother No problems noted. Social History (Updated 07/04/24 @ 16:41 by MIKAELA Carlin) Household Members: None Housing: House Do you presently have visiting nurse or other home services: No Alcohol intake: current Alcohol intake frequency: a few times a month Patient Tobacco Use Status: Current everyday Tobacco user Tobacco use type: Cigarette Cigarettes Per Day: 8 service: No Current occupational status: employed Current occupation: [employer] Cognitive needs: No Hearing needs: No Vision needs: Yes (reading glasses) Questionnaire PHQ-9 Over the last 2 weeks, how often have you been bothered by any of the following problems? 1. Little interest or pleasure in doing things: not at all 2. Feeling down, depressed, or hopeless: not at all 3. Trouble falling or staying asleep, or sleeping too much: not at all 4. Feeling tired or having little energy: not at all 5. Poor appetite or overeating: not at all 6. Feeling bad about yourself - or that you are a failure or have let yourself or your family down: not at all 7. Trouble concentrating on things, such as reading the newspaper or watching television: not at all 8. Moving or speaking so slowly that other people could have noticed. Or the opposite - being so fidgety or restless that you have been moving around a lot more than usual: not at all 9. Thoughts that you would be better off or of hurting yourself in some way: not at all Total score: 0 Source: Developed by Drs. Cyrus Vo, Emely Long, Clint Valenzuela and colleagues, with an educational kurt from [employer]. Thrive Questionnaire Date Thrive assessed: 07/04/24 I am a: Patient Within the past 12 months, did the food you bought not last and you didn't have the money to get more?: Never true Within the past 12 months, did you worry whether your food would run out before you got money to buy more?: Never true Do you have trouble paying for medicines?: No Do you have trouble getting transportation to medical appointments?: No Do you have trouble paying your heating and electricity bill?: No Do you have trouble taking care of your child, family member or friend?: No Do you have trouble with day-to-day activities such as bathing, preparing meals, shopping, managing finances, etc.?: No Are you currently unemployed and looking for a job?: No Are you interested in more education?: No THRIVE Score: 0 AUDIT C Alcohol Use Questionnaire (AUDIT-C) 1. How often do you have a drink containing alcohol?: Monthly or less 2. How many drinks containing alcohol do you have on a typical day when you are drinking?: 1 or 2 3. How often do you have six or more drinks on one occasion?: Never Total Score: 1 FUAD-7 AMB Questionnaire FUAD-7 Date FUAD - 7 assessed: 07/04/24 Feeling nervous, anxious, or on edge: 0 = Not at all Not being able to stop or control worryin = Not at all Worrying too much about different things: 0 = Not at all Trouble relaxin = Not at all Being so restless that it is hard to sit still: 0 = Not at all Becoming easily annoyed or irritable: 0 = Not at all Feeling afraid as if something awful might happen: 0 = Not at all Total FUAD-7 score (0-4 normal; 5-9 mild; 10-14 moderate; 15-21 severe): 0 Source: Developed by Emely Armando Kurt Kroenke and colleagues, with an educational kurt from [employer]. Physical exam (Primary Care) Vital Signs: Last Vital Signs Temp 98.1 F 07/04/24 16:28 Pulse 92 07/04/24 16:28 Resp 14 07/04/24 16:28 BP 142/80 H 07/04/24 16:28 Pulse Ox 99 07/04/24 16:28 Oxygen Delivery Method Room Air 07/04/24 16:28 BMI result Body Mass Index 21.4 Tobacco/Smoking Status: Tobacco use Status Tobacco use date assessed 07/04/24 07/04/24 16:31 Patient Tobacco Use Status Current everyday Tobacco 07/04/24 16:41 Tobacco use type Cigarette 07/04/24 16:41 PHQ-9: PHQ-9 Score PHQ-9: Total score 0 07/04/24 16:47 Thrive Assessment: Date of Thrive Assessment Date Thrive assessed 07/04/24 07/04/24 16:31 Coding Level of Care Code New Pt Level 4 (86666) Complex EM visit Add On G2211 Diagnoses Acute deep vein thrombosis (DVT) of femoral vein of right lower extremity I82.411 Affected thrombotic vein of extremity: femoral Assessment & Plan Assessment & Plan (1) Acute deep vein thrombosis (DVT) of right lower extremity: Code(s): I82.401 - Acute embolism and thrombosis of unspecified deep veins of right lower extremity Category: Medical Qualifiers: Affected thrombotic vein of extremity: femoral Qualified Code(s): I82.411 - Acute embolism and thrombosis of right femoral vein Plan: Hospital CTA revd. Large plaque in the aorta. THis needs further clarification. Will call the radiologist in the morning to ascertain if its in the aorta or the valve. Clinically no murmur heard. Plan History of Present Illness The patient is a 48-year-old male presenting for follow-up of deep vein thrombosis (DVT). He initially experienced leg pain and swelling, which led to hospitalization and a confirmed DVT diagnosis. An ultrasound identified a large blood clot necessitating surgical intervention and initiation of Heparin therapy. Post-surgery, the patient has been on anticoagulation with Eliquis (apixaban). He has a history of past blood clot incidents managed with blood thinners. 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 He expresses concern over potential recurrence and seeks further evaluation after the current course of medication. 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 - Tobacco Use: Reduced to eight cigarettes per day from two packs. - Alcohol Use: Reduced consumption, occasional intake for social events. - Past Injury: History of wrist fracture with a surgical plate insertion. Review of Systems - Musculoskeletal: Reports prior pain in the leg and hip. Physical Exam General: Appearance normal, both eyes and all related structures Nutritional Appearance: Lost a little bit of weight Orientation/consciousness: Patient oriented x3 Limitations: Ground work only, no climbing trees Head: Normal to inspection Neck: Normal visual inspection Chest: Normal palpation of entire chest wall Respiratory: Normal respiratory effort Neurology: Patient oriented x3 Results - Imaging: Previous ultrasound confirmed a large clot in the leg. Plan The current management plan involves continued anticoagulation therapy with Eliquis, emphasizing medication adherence. The patient is successfully managing lifestyle modifications by reducing tobacco and alcohol use. Medication refills are available as needed upon communication. Future evaluation will focus on assessing resolution before any changes in treatment strategy. Patient was informed and verbally consented to the use of an ambient scribe for clinic note documentation during this visit. Discussion Notes I discussed the management of deep vein thrombosis with the patient, including the continuation of Eliquis at its present dosage and the significance of comprehensive follow-up on anticoagulant therapy. We reviewed possible risks of discontinuation without further assessment, and I assured seamless access to refills upon his requisition. The reduction in tobacco and alcohol use was encouraged, recognizing improvements in overall cardiovascular health. We briefly touched on prior surgical interventions. The patient was advised to report any new symptoms or concerns promptly for timely intervention. Patient Instructions - Continue taking Eliquis 1 tablet twice daily as prescribed. - Notify promptly when medication supply is low for refills. - Avoid tobacco and alcohol, continuing reduced use practices. - Seek immediate care for any new leg pain, swelling, or other concerns. - Plan a follow-up evaluation prior to discontinuing Eliquis.
== END 2024-07-04 17:02 | disposition home or self-care (01) ==
LOC: HO.HMCHD 15:58
PROVIDERS: PCP Internal Medicine; Visit Provider Internal Medicine
DX: I82.411 Acute embolism and thrombosis of right femoral vein (principal)

== ENCOUNTER 2024-12-06 13:47 | Outpatient (AMB) | payer BC, SELFPAY ==
--- NOTE | 2024-12-06 13:49 | A.OFFPC_ITS ---
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 The patient reports that his toes have been turning purplish, a symptom that has been present for approximately a week. This change in color is described as being accompanied by pain in the toes upon waking, which requires him to stand to alleviate the discomfort. In addition, he experiences significant pressure in his calves, particularly after walking approximately 50 feet, necessitating rest to relieve this sensation. This calf-related discomfort occurs without pain but is described as ?crunchy? and internal burning. These symptoms began about a month and a half ago, following the cessation of a three- month course of blood thinners post-surgery. The patient provides a history of surgical intervention for the removal of blood clots from his right leg, which has informed his current concerns regarding blood flow. He notes that his symptoms, particularly the discoloration of his toes and loss of hair on his legs, have emerged since discontinuing blood th inners, a decision influenced by the lack of prescription refills. He expresses concerns regarding blood flow and potential clot formation, given his past medical history. His current symptoms may be exacerbated by his prolonged smoking history, which could contribute to vascular disease. Medical History: - History of Deep Vein Thrombosis - Recent calf discomfort post-exercise w ith a change in toe coloration (possible claudication) - Peripheral Artery Disease Surgical History: - Thrombectomy (right leg) - Wrist surgery - Dental surgery Medications: - Previous blood thinners (discontinued post-surgery) for Deep Vein Thrombosis Family History: - No known history of cancer, diabetes, or heart disease in the family [facility] Medical History Smoker Surgical History Hx of oral surgery History of knee surgery Family History (Updated 07/04/24 @ 16:40 by MIKAELA Carlin) Father No problems noted. Mother No problems noted. 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 How often do you have a drink containing alcohol?: 2-3 times a week 2. How many drinks containing alcohol do you have on a typical day when you are drinking?: 1 or 2 3. How often do you have six or more drinks on one occasion?: Never Total Score: 3 Score Reviewed/Action Taken: Yes FUAD-7 AMB Questionnaire FUAD-7 Date FUAD - 7 assessed: 07/04/24 Source: Developed by Drs. Cyrus Vo, Emely Long, Clint Valenzuela and colleagues, with an educational kurt from [employer]. Review of Systems Const Details: - Cardiovascular: Reports calf discomfort on exertion, denies chest pain - Vascular: Reports purple discoloration and pain in the toes - Respiratory: Denies wheezing, shortness of breath - Gastrointestinal: Denies nausea, vomiting, changes in appetite despite reduced food intake - Neurological: Denies headaches, dizziness, vision changes - Musculoskeletal: Denies generalized joint pain, reports specific calf discomfort - Integumentary: Reports decreased hair growth on legs All systems reviewed & are unremarkable except as noted in HPI and below Physical exam (Primary Care) Tobacco/Smoking Status: Tobacco use Status Tobacco use date assessed 07/04/24 07/04/24 16:31 Patient Tobacco Use Status Current everyday Tobacco 07/04/24 16:41 Tobacco use type Cigarette 07/04/24 16:41 Tobacco cessation counseling provided: Yes Relapse Prevention: discussed the importance of a supportive environment Number of minutes spent counselin CPT code: 56974 - 4-10 Minutes Thrive Assessment: Date of Thrive Assessment Date Thrive assessed 07/04/24 07/04/24 16:31 Const Other: General: +Alert and oriented, Well nourished, No acute distress. Eye: Pupils are equal, round and reactive to light, Intact accommodation, Ext raocular movements are intact, Normal conjunctiva, Vision unchanged. HENT: Normocephalic, Atraumatic, Tympanic membranes are clear, Normal hearing, Oral mucosa is moist, No pharyngeal erythema, Ear canals patent. Respiratory: Lungs CTA bilaterally, No wheeze, Respirations are non-labored. Cardiovascular: Regular rate, Regular rhythm, S1 auscultated, S2 auscultated, No murmur, Decreased pulses in both feet, Normal peripheral perfusion, No edema. Gastrointestinal: Soft, Non-tender, Non-distended, Normal bowel sounds, No organomegaly. Musculoskeletal: Normal range of motion, Normal strength, No tenderness, No swelling, No deformity, Normal gait. Integumentary: Warm, Dry, [place], Intact, Toes with dark hue, Feet are cooler than the rest of the body. Neurologic: Alert, Oriented, Normal sensory, Normal motor function, No focal defects, Cranial Nerves II-XII are grossly intact, Normal deep tendon reflexes. Psychiatric: Cooperative, Appropriate mood & affect, Normal judgment. Coding Level of Care Code Est Pt Level 4 (03674) Complex EM visit Add On G2211 Diagnoses Leg pain, bilateral M79.604; M79.605 Acute deep vein thrombosis (DVT) of femoral vein of right lower extremity I82.411 Affected thrombotic vein of extremity: femoral Additional Codes Vital Signs *Quality* - CPT code: 59577 - 4-10 Minutes ([id number]) Time Spent (min) 60 Comment Person review of his chart, duplex, OR report, notes from hospitalization, and labs. Assessment & Plan Assessment & Plan (1) Leg pain, bilateral: Comment: - Assess the decreased pulses in both feet and consider peripheral artery disease as a probable cause. - Recommend immediate assessment of lower extremity blood flow at an emergency room due to significant symptomatology and history. - Discuss possible interventions such as Doppler ultrasound to evaluate the degree of arterial obstruction. - Factor prolonged smoking history in the discussion concerning peripheral artery disease. - Contemplate non-invasive management options depending on diagnostic outcomes. - Suggest further vascular evaluation in the emergency room to rule out critical limb ischemia. Code(s): M79.604 - Pain in right leg; M79.605 - Pain in left leg Category: Medical Plan: - Recommend immediate emergency room evaluation to assess the presence of arterial obstruction via Doppler ultrasound. - Reiterate the necessity of vascular assessment due to recent symptomatic presentation. (2) Acute deep vein thrombosis (DVT) of right lower extremity: Comment: Prior DVT of right lower extremity status post thrombectomy and completion of 3 months of anticoagulation therapy with Eliquis. Reports resolution of the symptoms along that side and feeling well. He however still needs to undergo a workup for hypercoagulable states. Code(s): I82.401 - Acute embolism and thrombosis of unspecified deep veins of right lower extremity Category: Medical Qualifiers: Affected thrombotic vein of extremity: femoral Qualified Code(s): I82.411 - Acute embolism and thrombosis of right femoral vein Plan: Hypercoag workup at next visit Plan Based on our conversation, I suspect you might be experiencing peripheral artery disease, given the symptoms of claudication and toe discoloration. Your significant smoking history increases your risk for vascular diseases. I recommend that you go to the emergency room to receive an immediate evaluation, including a Doppler ultrasound, to assess blood flow to your legs and rule out critical limb ischemia or any acute arterial obstruction. I explained the importance of this test and promptly advised visiting the emergency room where they can perform the necessary imaging immediately. Should the test reveal any blockage, they may initiate measures to improve blood flow. We also discussed other potential contributing factors, such as your resumed smoking, and addressed the prior history of thrombectomy and what implications this might have on current symptoms. Follow-up will be arranged after this visit to address further health maintenance and prevention strategies. Orders: Orders US duplex arterial venous comp Today M79.604 - Pain in right leg, M79.605 - Pain in left leg Patient Instructions: - Go to the emergency room for a Doppler ultrasound of your legs to check for blocked arteries. - Continue monitoring your symptoms and seek immediate medical attention if you notice worsening discoloration, increased pain, or loss of sensation. - Reduce your smoking or seek help to quit, as smoking can worsen your vascular problems. - Follow up with me after your emergency room visit so we can discuss further steps (Labs, Cancer Screening)
[2024-12-06 13:51] VITALS: BP 148/82; PULSE 86; RESP 18; TEMP 36.2; O2SAT 98
--- OUTSIDE RECORDS SUMMARY | 2024-12-06 14:43 | XMS_ITS | Clinical Summary ---
Author Organization [facility] Address [address] [facility] [address] [place] [id number] Phone Care Team Providers Care Sfdc Consultant Name Role Phone Mauricio Douglas DO Primary Care Provider [phone] Allergies No known active allergies Medications No known medications Social History Tobacco Use Types Packs/Day Years Used Date Smoking Tobacco: Smoker, Current Status Unknown Alcohol Use Standard Drinks/Week Comments Yes 0 (1 standard drink = 0.6 oz pur e alcohol) Sex and Gender Information Value Date Recorded Sex Assigned at Male 04/20/2017 9:38 AM EST Legal Sex Male 9:30 PM EDT Gender Identity Male 04/20/2017 9:38 AM EST Sexual Orientation Straight 04/20/2017 9: 38 AM EST Last Filed Vital Signs Vital Sign Reading Time Taken Comments Blood Pressure 127/79 03/09/2017 11:04 PM EST Pulse 98 03/09/2017 11:04 PM EST Temperature 36.6 C (97.8 F) 03/09/2017 11:04 PM EST Respiratory Rate 16 03/09/2017 11:04 PM EST Oxygen Saturation 99% 03/09/2017 11:04 PM EST Inhaled Oxygen Concentration - - Weight 68 kg (150 lb) 03/09/2017 7:27 PM EST Height 175.3 cm (5' 9 ) 03/09/2017 7:27 PM EST Body Mass Index 22.15 03/09/2017 7:27 PM EST Plan of Treatment Not on file Medical Devices Not on file Care Teams Sfdc Consultant Relationship Specialty Start Date End Date Mauricio Dogulas DO [address] [place] [address] PCP - General Internal Medicine 03/09/17 Additional Source Comments The information contained in this document represents components of the legal health record. It is not the complete legal health record.[facility]
--- OUTSIDE RECORDS SUMMARY | 2024-12-06 14:43 | XMS_ITS | Encounter Summary ---
Author Organization [facility] Address [address] [facility] [address] [place] [id number] Phone Care Team Providers Care Puncher And Fastener Name Role Phone Mauricio Douglas DO Primary Care Provider [phone]- [phone] Encounter Details Date Type Department Care Team (Late st Contact Info) Description 03/09/2017 Procedure Pass [facility], Ct Scan - [address] [address] Social History Tobacco Use Types Packs/Day Years [...] Orientation Straight 04/20/2017 9: 38 AM EST documented as of this encounter Plan of Treatment Not on file documented as of this encounter Visit Diagnoses Not on filedocumented in this encounter Care Teams Puncher And Fastener Relationship Specialty Start Date End Date Mauricio Douglas DO [address] [place] [address] PCP - General Internal Medicine 03/09/17 documented as of this encounter Additional Source Comments The information contained in this document represents components of the legal health record. It is not the complete legal health record.[facility]
== END 2024-12-06 14:13 | disposition home or self-care (01) ==
LOC: HO.HMCHD 13:48
PROVIDERS: PCP Student in an Organized Health Care Education/Training Program; Visit Provider Student in an Organized Health Care Education/Training Program
DX: M79.604 Pain in right leg (principal); M79.605 Pain in left leg; I82.411 Acute embolism and thrombosis of right femoral vein

== ENCOUNTER → 2024-12-06 13:47 | Outpatient (BNVA) | payer BC, SELFPAY | PROVIDERS: PCP Internal Medicine; Visit Provider Student in an Organized Health Care Education/Training Program | DX: I82.411 Acute embolism and thrombosis of right femoral vein (principal); M79.605 Pain in left leg | CPT/HCPCS: 99215 ==

== ENCOUNTER 2024-12-07 09:01 | Emergency (ER) | payer BC, SELFPAY ==
--- NOTE | ~2024-12-07 | US_ITS ---
EXAMINATION: Noninvasive assessment of the bilateral lower extremities without ARTERIAL DUPLEX, ANKLE BRACHIAL INDICES (ABIs), and PULSE VOLUME RECORDINGS (PVRs). CLINICAL INFORMATION: Status post thrombectomy, June 10, 2024. Blue toes. History of occlusive thrombus in the right lower extremity. TECHNIQUE: Duplex Doppler techniques with waveform analysis and measurement of velocities in the bilateral common femoral, profunda femoris, superficial femoral, popliteal and tibial arteries were performed.The study was performed only at rest. COMPARISON: DVT ultrasound dated June 09, 2024. Procedural exam dated June 10, 2024.. FINDINGS: DIRECT DUPLEX DOPPLER FINDINGS: RIGHT LEG: Common femoral artery: 82 cm/s, phasicity: Triphasic. Nonocclusive thrombus/embolus. Profunda femoris artery: 100 cm/s, phasicity: Triphasic Superficial femoral artery (proximal): 53 cm/s, phasicity: Triphasic. Superficial femoral artery (mid): 36 cm/s, phasicity: Monophasic. Superficial femoral artery (distal): 19 cm/s, phasicity: Monophasic. Incidentally is no compressibility in the right femoral vein. Popliteal artery: 15 cm/s, phasicity: Monophasic. Posterior tibial artery: 23 cm/s, phasicity: Monophasic. Peroneal artery: 9 cm/s, phasicity: Monophasic. Nonocclusive thrombus right posterior tibialis vein. Anterior tibial artery: Not identified. Dorsalis pedis artery: Not identified. LEFT LEG: Common femoral artery: 56 cm/s, phasicity: Monophasic. Spectral broadening. Profunda femoris artery: 35 cm/s, phasicity: Monophasic. Spectral broadening. Superficial femoral artery (proximal): 44 cm/s, phasicity: Monophasic. Spectral broadening. Superficial femoral artery (mid): 35 cm/s, phasicity: Monophasic. Spectral broadening. Superficial femoral artery (distal): 17 cm/s, phasicity: Monophasic. Spectral broadening. Popliteal artery: 20 cm/s, phasicity: Monophasic. Spectral broadening. There is a thrombus/embolus in the left popliteal artery.. Posterior tibial artery: 18 cm/s, phasicity: Monophasic. Spectral broadening. Peroneal artery: 9 cm/s, phasicity: Monophasic. Spectral broadening. Anterior tibial artery: Not identified. Dorsalis pedis artery: Not identified. US/US arterial duplex LE BI IMPRESSION: Right leg: Positive thrombus in the right common femoral artery. Severe inflow disease throughout the interrogated arteries from the mid thigh to the foot. Probably occluded posterior tibialis and dorsalis pedis arteries. Persistent chronic occlusive thrombus, deep venous system. Left leg: Thrombus in the left popliteal artery. Severe inflow disease throughout the interrogated arteries of the lower left extremity. Probable occluded anterior tibialis and dorsalis pedis arteries. Discussed with the emergency physician anesthesiologist assistant certified, Catherine Bullock at 11:05 AM on December 07, 2024. JOSE Reference: - >1.4 = calcified vessels - 0.9 - 1.4 = normal - no significant arterial disease - 0.7 - 0.89 = mild peripheral arterial disease - 0.51 - 0.69 = moderate peripheral arterial disease - 0.50 = severe peripheral arterial disease - < .30 = critical arterial disease Electronically signed by: Adama Craft MD 12/07/2024 11:15 AM EDT
[2024-12-07 09:06] VITALS: BP 172/86; PULSE 90; RESP 18; TEMP 36.6; O2SAT 97; BMI 20.2
--- NOTE | 2024-12-07 09:27 | ED.GENADULT ---
HPI - General Adult General Chief complaint: Extremity Injury, Lower Stated complaint: Toes Purple R Foot Post Surgery 6 Mos Ago Time Seen by Provider: 12/07/24 09:27 Source: patient Mode of arrival: ambulatory Limitations: no limitations History of Present Illness ED Provider: Catherine Bullock PA-C HPI narrative: Patient is a 49 year old assigned male at with a history of tobacco use and DVT requiring thrombectomy on 06/10/2024 presenting to the emergency department today with worsening bilateral lower leg pain and discoloration of toes. Patient states that over the last 2 weeks he has had worsening bilateral lower leg pain with walking and when they are laid out in front of him and his great toes have been turning blue / purple but he can still feel them. Patient denies any dizziness, lightheadedness, abdominal pain, nausea, vomiting, fever, chills, blurry vision, double vision, loss of vision, chest pain, difficulty breathing, shortness of breath, back pain, night sweats, pain with urination, increased urinary frequency, increased urinary urgency, blood in his urine or stool, syncope or a near syncopal episode, recent trauma or falls, bowel incontinence, bladder incontinence, or any other complaints at this time. Patient states that after his last DVT he was on a blood thinner for 3 months and then was not given a refill. Patient states that he has been off his Eliquis since August. Onset (ago): week(s) (2) Location: left, right and lower extremity Exacerbating factors: other (walking) Associated symptoms: denies other symptoms Treatments prior to arrival: none Related Data Home Medications ?Medication ?Instructions ?Recorded ?Confirmed amoxicillin 500 mg tablet 500 mg PO TID 12/06/24 ibuprofen 800 mg tablet 800 mg PO TID 12/06/24 Allergies Allergy/AdvReac Type Severity Reaction Status Date / Time No Known Allergies Allergy Verified 12/07/24 09:10 Review of Systems Constitutional: Constitutional: Reports no additional constitutional complaints, Denies chills, Denies fever(s) and Denies night sweats Eyes: Eyes: Reports no additional eye complaints, Denies blurry vision, Denies change in vision, Denies diplopia, Denies eye discharge, Denies loss of vision and Denies eye pain ENT: Denies dizziness Cardiovascular: Cardiovascular: Reports no additional cardiovascular complaints, Denies chest pain, Denies lightheadedness, Denies Loss of Consciousness and Denies dyspnea Respiratory: Respiratory: Reports no additional respiratory complaints and Denies dyspnea Gastrointestinal: Gastrointestinal: Reports no additional gastrointestinal complaints, Denies abdominal pain, Denies melena, Denies hematochezia, Denies change in bowel habits and Denies change in stool character Genitourinary: Genitourinary: Reports no additional male genitourinary complaints, Denies hematuria, Denies oliguria, Denies difficulty urinating, Denies dysuria, Denies urinary frequency, Denies urinary hesitancy, Denies urinary incontinence and Denies urinary urgency Musculoskeletal: Musculoskeletal: Reports no additional musculoskeletal complaints Comments: bilateral lower leg pain - worsening with walking bilateral great toe discoloration Neurologic: Denies dizziness and Denies loss of vision Psychiatric: Psychiatric: Reports no additional psychiatric complaints Endocrine: Endocrine: Reports no additional endocrine complaints Hematologic/Lymphatic: Hematologic/Lymphatic: Reports no additional hematologic/lymphatic complaints Allergic/Immunologic: Allergic/Immunologic: Reports no additional allergic/immunologic complaints [facility] Past Medical History Attestation statement: The following information was validated with the patient. Source: old records reviewed and nursing notes reviewed Medical History Leg pain, bilateral Smoker Surgical History Hx of oral surgery History of knee surgery Family History Family History Father No problems noted. Mother No problems noted. 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 Cognitive needs: No Hearing needs: No Vision needs: Yes (reading glasses) Physical Exam ED Vital Signs: Vital Signs - 24 hr 12/07/24 09:06 12/07/24 11:14 Temperature 97.8 F 97.9 F Pulse Rate 90 72 Respiratory Rate 18 22 H Blood Pressure 172/86 H 165/84 H Pulse Oximetry 97 98 Oxygen Delivery Method Room Air Room Air BMI result Body Mass Index 20.2 Const General: cooperative, no acute distress, alert and awake Nutritional Appearance: well nourished Orientation/consciousness: patient oriented x3 HENMT Head: Yes normal to inspection and Yes atraumatic Ears: hearing grossly normal bilaterally and external ears normal General nose exam: Normal external nose present, no nasal discharge noted and no epistaxis Face and sinus: Yes normal facial exam, No abrasion and No laceration Mouth: Normal oral and palatal mucosa present, no drooling and no muffled voice Eyes General: appearance normal, both eyes and all related structures Periorbital: periorbital findings normal Eyelids: Yes eyelids normal Conjunctivae: conjunctivae normal Pupils: Equal, round and reactive pupils present EOM: EOMs intact bilaterally Neck Neck: Yes normal visual inspection and Yes full ROM Resp Effort & Inspection: normal respiratory effort and able to speak in complete sentences Neuro General: patient oriented x3, moves all extremities and CN's II-XI intact bilaterally Cranial nerves: Yes Equal, round and reactive pupils present Cognition (Neuro): normal cognition Extrem Other: General: Yes full ROM Psych Appearance: grossly normal Mental Status: mental status grossly normal Affect: normal affect Attitude: cooperative Thought process: Normal thought process present Thought content: Normal thought content present Insight: Good insight present (Psych) Medical Decision Making Medical Decision Making MDM Narrative: Patient is a 49 year old assigned male at with a history of tobacco use and DVT requiring thrombectomy on 06/10/2024 presenting to the emergency department today with worsening bilateral lower leg pain and discoloration of toes. Patient's physical exam showed bilateral great toes with purplish / blue discoloration and decreased cap refill. Patient had bilateral patent dorsalis pedis pulses. Patient was able to move and feel bilateral great toes / all toes / feet / lower legs. Patient's blood work showed a minimally elevated WBC count of 11.5. Patient's bilateral lower extremity arterial US showed: Right Thrombus in the common femoral artery Severe inflow disease throughout the arteries from the right mid thigh to the right foot Probable posterior tibialis + dorsalis pedis occlusions Persistent chronic occlusive thrombus of the deep venous system Left Thrombus in the left popliteal artery Severe inflow disease throughout the arteries of the left lower extremity Probable occluded anterior tibialis + dorsalis pedis arteries I spoke with our general surgery team who is covering for our vascular surgery service - they recommended transfer to a facility with vascular services. I called and spoke to [facility] who informed me they are closed to vascular transfers. I called and spoke with [facility] who agreed to accept the patient to their ED, under Dr. Mcfarland. I explained my physical exam findings as well as all test results to the patient. I answered all questions asked by the patient. I consulted with my attending physician, Dr. Francois, about whether or not to give the patient a heparin bolus and start the patient on a heparin drip. He recommended giving the patient a heparin bolus and starting the drip. Ordered and administered. Patient verbalized understanding and agreement with transfer to [facility] for vascular surgery services. Differential Diagnosis Differential Diagnoses: The differential diagnosis associated with the presentation includes Tissue ischemia Toe ischemia Lower leg arterial clot Lower leg venous clot Claudication Admission/Observation Consideration of admission/observation: Escalation of care including admission/observation considered Patient transferred to [facility]. Consult Healthcare Provider Management of the patient was discussed with: Relocation Coordinator (spoke with the general surgery team at [facility] as noted in the MDM Rationale portion of this note. Spoke with [facility] and [facility] as noted in the MDM Rationale portion of this note. ) Lab Data [facility] Lab Attestation statement: I reviewed the patient's lab results. My interpretation of these results are in the MDM Rationale portion of this note. 12/07/24 09:43 12/07/24 09:43 Labs: Lab Results 12/07/24 Range/Units 09:43 WBC 11.5 H (4.8-10.8) X10*3/uL RBC 4.60 D (4.60-5.80) X10*6/uL Hgb 15.5 D (14.0-18.0) g/dl Hct 45.1 D (42.0-52.0) % MCV 98.0 (80.0-98.0) fL MCH 33.7 H (27.0-33.0) pg MCHC 34.4 (31.0-36.0) g/dl RDW 13.6 (11.0-16.0) % Plt Count 335 (160-400) X10*3/uL MPV 9.0 L (9.4-12.4) fL Immature Gran % (Auto) 0.4 (0.0-0.4) % Neut % (Auto) 58.9 (45-73) % Lymph % (Auto) 22.3 (20-40) % [place] % (Auto) 13.0 H (2-11) % Eos % (Auto) 4.5 H (0-4) % Baso % (Auto) 0.9 (0-2) % Lymph # (Auto) 2.6 (1.2-4.9) X10*3/uL [place] # (Auto) 1.5 H (0.1-1.2) X10*3/uL Eos # (Auto) 0.5 H (0.0-0.4) X10*3/uL Baso # (Auto) 0.1 (0.0-0.2) X10*3/uL Abs Immat Gran (auto) 0.05 H (0.00-0.03) X10*3/uL Absolute Neuts (auto) 6.7 (2.0-8.3) x10*3/uL Absolute Nucleated RBC 0.000 (0.0-0.012) X10*3/uL Nucleated RBC % (auto) 0.0 (0.0-0.2) /100WBC ESR 7 (0-15) MM/HR PT 11.0 D (10.9-12.4) SEC INR 1.0 (0.9-1.1) Sodium 135 (135-145) mmol/L Potassium 5.0 D (3.3-5.1) mmol/L Chloride 102 (96-108) mmol/L Carbon Dioxide 28 (22-29) mmol/L Anion Gap 10 L (12-20) BUN 6 L (9-16) mg/dL Creatinine 1.03 (0.5-1.4) mg/dL Estim Creat Clear Calc 74.6 Estimated GFR > 60 Random Glucose 92 (60-115) mg/dL Calcium 9.3 D (8.4-10.2) mg/dL Total Bilirubin 0.4 (0.0-1.0) mg/dL AST 26 (5-37) U/L ALT 20 (0-40) U/L Alkaline Phosphatase 95 (39-117) U/L C-Reactive Protein 0.12 (< or = 0.50) mg/dL Total Protein 7.3 (6.5-8.0) g/dL Albumin 4.2 (3.5-5.0) g/dL Hold Red Top See Note Independent Interpretation I performed an independent interpretation of an: Ultrasound Interpretation: My interpretation is in agreement with the radiologist's impression of this imaging study. EXAMINATION: Noninvasive assessment of the bilateral lower extremities without ARTERIAL DUPLEX, ANKLE BRACHIAL INDICES (ABIs), and PULSE VOLUME RECORDINGS (PVRs). CLINICAL INFORMATION: Status post thrombectomy, June 10, 2024. Blue toes. History of occlusive thrombus in the right lower extremity. TECHNIQUE: Duplex Doppler techniques with waveform analysis and measurement of velocities in the bilateral common femoral, profunda femoris, superficial femoral, popliteal and tibial arteries were performed.The study was performed only at rest. COMPARISON: DVT ultrasound dated June 09, 2024. Procedural exam dated June 10, 2024.. FINDINGS: DIRECT DUPLEX DOPPLER FINDINGS: RIGHT LEG: Common femoral artery: 82 cm/s, phasicity: Triphasic. Nonocclusive thrombus/embolus. Profunda femoris artery: 100 cm/s, phasicity: Triphasic Superficial femoral artery (proximal): 53 cm/s, phasicity: Triphasic. Superficial femoral artery (mid): 36 cm/s, phasicity: Monophasic. Superficial femoral artery (distal): 19 cm/s, phasicity: Monophasic. Incidentally is no compressibility in the right femoral vein. Popliteal artery: 15 cm/s, phasicity: Monophasic. Posterior tibial artery: 23 cm/s, phasicity: Monophasic. Peroneal artery: 9 cm/s, phasicity: Monophasic. Nonocclusive thrombus right posterior tibialis vein. Anterior tibial artery: Not identified. Dorsalis pedis artery: Not identified. LEFT LEG: Common femoral artery: 56 cm/s, phasicity: Monophasic. Spectral broadening. Profunda femoris artery: 35 cm/s, phasicity: Monophasic. Spectral broadening. Superficial femoral artery (proximal): 44 cm/s, phasicity: Monophasic. Spectral broadening. Superficial femoral artery (mid): 35 cm/s, phasicity: Monophasic. Spectral broadening. Superficial femoral artery (distal): 17 cm/s, phasicity: Monophasic. Spectral broadening. Popliteal artery: 20 cm/s, phasicity: Monophasic. Spectral broadening. There is a thrombus/embolus in the left popliteal artery.. Posterior tibial artery: 18 cm/s, phasicity: Monophasic. Spectral broadening. Peroneal artery: 9 cm/s, phasicity: Monophasic. Spectral broadening. Anterior tibial artery: Not identified. Dorsalis pedis artery: Not identified. US/US arterial duplex LE BI IMPRESSION: Right leg: Positive thrombus in the right common femoral artery. Severe inflow disease throughout the interrogated arteries from the mid thigh to the foot. Probably occluded posterior tibialis and dorsalis pedis arteries. Persistent chronic occlusive thrombus, deep venous system. Left leg: Thrombus in the left popliteal artery. Severe inflow disease throughout the interrogated arteries of the lower left extremity. Probable occluded anterior tibialis and dorsalis pedis arteries. Discussed with the emergency physician inventory assistant, Catherine Bullock at 11:05 AM on December 07, 2024. JOSE Reference: - >1.4 = calcified vessels - 0.9 - 1.4 = normal - no significant arterial disease - 0.7 - 0.89 = mild peripheral arterial disease - 0.51 - 0.69 = moderate peripheral arterial disease - 0.50 = severe peripheral arterial disease - < .30 = critical arterial disease Electronically signed by: Adama Craft MD 12/07/2024 11:15 AM EDT RP Dictated By: Adama Bob MD Signed By: Electronically signed by Adama Pitts MD 12/07/24 1115 Radiology Impression Discussion of test interpretation with radiology: I have reviewed the radiologist's reading. Critical Care Time Critical Care Time Critical Care Time: Yes Total Critical Care Time: 42 Attestation: I spent 42 minutes of Critical Care Time with this patient. This does not include time spent on separately reported billable procedures. Discharge Plan Discharge Clinical Impression: Ischemia, DVT (deep venous thrombosis), Arterial occlusion Patient Disposition: [facility] Transfer Details: [facility] ED for vascular services not available at [facility] Prescriptions: No Action ibuprofen 800 mg tablet 800 mg PO TID amoxicillin 500 mg tablet 500 mg PO TID Print Language: Portuguese
--- NOTE | 2024-12-07 09:45 | PC.NURSE ---
a&ox4. vss and up to date. nsr on the quality assurance monitor body. on RA baseline as well as currently w/o difficulty - no sob/wob noted. respirations even/unlabored. pt presents to the ED c/o intermittent bilateral calf pain x 2 weeks. pt reports hx of previous DVT - originally on +eloquis but has not taken it x august. pt reports he noticed blue toes on his feet bilaterally which prompted him to come in. slight discoloration noted to great toes bilaterally. +cms. +pulses. pt denies any associated dizziness/lightheadedness/sob. labs obtained/sent to lab by [facility]. pt currently pending US to be completed at this time. plan of care ongoing. call warren placed within reach.
[2024-12-07 09:47] LABS: MANUAL DIFF FLAG NO
[2024-12-07 09:54] LABS: Hematocrit 45.1 % (42.0-52.0); Hemoglobin 15.5 g/dl (14.0-18.0); Imm Gran Abs Auto 0.05 X10*3/uL (0.00-0.03); Imm Gran Pct Auto 0.4 % (0.0-0.4); Lymphocytes Absolute Auto 2.6 X10*3/uL (1.2-4.9); Mean Corpuscular HGB Conc 34.4 g/dl (31.0-36.0); Mean Corpuscular Hemoglobin 33.7 pg (27.0-33.0); Mean Corpuscular Volume 98.0 fL (80.0-98.0); NRBC Abs Auto 0.000 X10*3/uL (0.0-0.012); NRBC Pct Auto 0.0 /100WBC (0.0-0.2); Platelet Count 335 X10*3/uL (160-400); Red Blood Count 4.60 X10*6/uL (4.60-5.80); White Blood Count 11.5 X10*3/uL (4.8-10.8)
[2024-12-07 10:03] LABS: INTERNATIONAL NORM RATIO 1.0 (0.9-1.1); Prothrombin Time 11.0 SEC (10.9-12.4)
[2024-12-07 10:10] LABS: Alanine Aminotransferase 20 U/L (0-40); Albumin Level 4.2 g/dL (3.5-5.0); Alkaline Phosphatase 95 U/L (39-117); Anion Gap 10 (12-20); Aspartate Amino Transferase 26 U/L (5-37); Blood Urea Nitrogen 6 mg/dL (9-16); Calcium 9.3 mg/dL (8.4-10.2); Carbon Dioxide 28 mmol/L (22-29); Chloride 102 mmol/L (96-108); Creatinine Clr Calc Pharmacy 74.6; Estimated Glomerular Filt Rate > 60; Potassium 5.0 mmol/L (3.3-5.1); Sodium 135 mmol/L (135-145); Total Protein 7.3 g/dL (6.5-8.0)
--- OUTSIDE RECORDS SUMMARY | 2024-12-07 11:01 | XMS_ITS | Encounter Summary ---
Author Organization [facility] Address [address] [place] [id number] Phone Care Team Providers Care Painter And Grader Cork Name Role Phone Mauricio Douglas DO Primary Care Provider [phone] Encounter Details Date Type Department Care Team (Late st Contact Info) Description 03/09/2017 Procedure Pass [facility], Ct Scan - [address] [address] Social History Tobacco Use Types Packs/Day Years [...] on filedocumented in this encounter Care Teams Painter And Grader Cork Relationship Specialty Start Date End Date Mauricio Douglas DO [address] [place] [address] PCP - General Internal Medicine 03/09/17 documented as of this encounter Additional Source Comments The information contained in this document represents components of the legal health record. It is not the complete legal health record.[facility]
--- OUTSIDE RECORDS SUMMARY | 2024-12-07 11:01 | XMS_ITS | Clinical Summary ---
Author Organization [facility] Address [address] [place] [id number] Phone Care Team Providers Care Adoption Services Manager Name Role Phone Mauricio Douglas DO Primary Care Provider [phone]- [phone] Allergies No known active allergies Medications No [...] Medical Devices Not on file Care Teams Adoption Services Manager Relationship Specialty Start Date End Date Mauricio Douglas DO [address] [place] [address] PCP - General Internal Medicine 03/09/17 Additional Source Comments The information contained in this document represents components of the legal health record. It is not the complete legal health record.[facility]
[2024-12-07 11:14] VITALS: BP 165/84; PULSE 72; RESP 22; TEMP 36.6; O2SAT 98
[2024-12-07 11:27] LABS: Hematocrit 45.4 % (42.0-52.0); Hemoglobin 15.6 g/dl (14.0-18.0); Mean Corpuscular HGB Conc 34.4 g/dl (31.0-36.0); Mean Corpuscular Hemoglobin 33.8 pg (27.0-33.0); Mean Corpuscular Volume 98.3 fL (80.0-98.0); NRBC Abs Auto 0.000 X10*3/uL (0.0-0.012); NRBC Pct Auto 0.0 /100WBC (0.0-0.2); Platelet Count 363 X10*3/uL (160-400); Red Blood Count 4.62 X10*6/uL (4.60-5.80); White Blood Count 12.7 X10*3/uL (4.8-10.8)
[2024-12-07 11:36] VITALS: BP 173/93; PULSE 75; RESP 18; O2SAT 98
[2024-12-07 11:40] LABS: INTERNATIONAL NORM RATIO 1.0 (0.9-1.1); Prothrombin Time 11.0 SEC (10.9-12.4)
[2024-12-07 11:43] LABS: PTT Heparin Drip 29.0 SEC (53-77.9)
--- NOTE | 2024-12-07 11:43 | PC.NURSE ---
pt noted to have positive US results to DVT in LE bilaterally. per provider, pt will be transferred/started on heparin gtt. 18gIV placed in the left AC. additional 18gIV placed in the right forearm - labs obtained/sent to lab. pending lab results so gtt can be administered at this time. pt otherwise remains in no apparent distress aside from c/o bilateral calf pain. vss and up to date. on RA w/o difficulty. plan of care ongoing. call warren placed within reach.
[2024-12-07] MEDS: Heparin Sodium,Porcine/1/2NS 25,000 UNIT/250 ML IV.SOLN 8.71 UNIT IVCONT (11:52)
--- NOTE | 2024-12-07 12:05 | PC.NURSE ---
labs resulted - heparin gtt infusing @ 14u/kg/hr at this time. otherwise vss and up to date. nsr on the quality assurance monitor final. on RA w/o difficulty. pending transfer to [facility] at this time. plan of care ongoing. call warren placed within reach.
--- NOTE | 2024-12-07 12:11 | PC.NURSE ---
Addendum entered by Thea Espinosa 12/12/24 07:44: patient had a total volume of 2.758 units/kg/hr of heparin that had infused prior to ED departure. Addendum entered by Thea Espinosa 12/07/24 12:41: patient being transferred w/ heparin gtt infusing @ 14 units/kg/hr via pump/ALS transport. Original Note: report given to JOE Marcano. pt being transferred to [facility] at this time.
[2024-12-07 12:16] VITALS: BP 156/84; PULSE 76; RESP 17
--- NOTE | 2024-12-07 12:22 | PC.NURSE ---
report given to BERNA Cullen at [facility] at this time.
[2024-12-07 12:39] VITALS: BP 156/84; PULSE 76; RESP 17; TEMP 36.6
== END 2024-12-07 12:41 | disposition short-term general hospital (02) ==
PROVIDERS: Physician Assistant Medical; Emergency Provider Emergency Medicine; PCP Internal Medicine
DX: I82.401 Acute embolism and thrombosis of unspecified deep veins of right lower extremity (principal); I74.3 Embolism and thrombosis of arteries of the lower extremities; M79.605 Pain in left leg; M79.604 Pain in right leg; L60.8 Other nail disorders
CPT/HCPCS: 36415; 80053; 85025; 85027; 85610; 85652; 85730; 86140; 93925; 96374; 99285; 99291; J1644

== ENCOUNTER → 2024-12-07 10:01 | Outpatient (BNV) | payer BC, SELFPAY | PROVIDERS: Emergency Provider Emergency Medicine; PCP Internal Medicine; Visit Provider Radiology Diagnostic Radiology | DX: I70.202 Unspecified atherosclerosis of native arteries of extremities, left leg (principal); I70.201 Unspecified atherosclerosis of native arteries of extremities, right leg; I74.3 Embolism and thrombosis of arteries of the lower extremities | CPT/HCPCS: 93925 ==

== ENCOUNTER 2025-01-03 09:46 | Outpatient (AMB) | payer BC, SELFPAY ==
[2025-01-03 09:54] VITALS: BMI 21.4
--- NOTE | 2025-01-03 09:54 | MHC.OFFVIS ---
Vital Signs 01/03/25 09:54 Height 5 ft 9 in Weight 145 lb BMI 21.4 Intake Visit Reasons: urgent follow up for discolored toes s/p Arterial Intake Note: follow up for discolored toes and LE pain, Right LE is worse than Left LE. Pt had Right LE venous thrombectomy 06/10/24 and was seen in the ED 12/07/24 for Right foot purple toes, was transferred to [facility] and had Arterial US same date of 12/07/24. Pt can walk about 50 feet before severe cramping. 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 The patient underwent a venous thrombectomy on June 10 of this year due to venous thrombosis. He reports a significant reduction in smoking from two packs a day to eight cigarettes per day. In the interim he had developed acute pain while I was away and ended up at [facility] for evaluation of his arterial status. There was concern of dusky appearance of bilateral great toes at that time. The patient experiences claudication symptoms, describing a burning sensation in the right leg after walking less than a block, necessitating rest before resuming activity. The right leg is more symptomatic, although the left leg has worse arterial circulation as per recent studies. The patient was admitted overnight at [facility] for evaluation, where an echocardiogram showed normal cardiac function. He reports intact sensation in his toes and a good femoral pulse was noted during examination. Noninvasive arterial testing was performed The patient has a history of tobacco use, which is a significant risk factor for his current vascular issues. FORMERLY [facility], 1928–1983 Medical History Leg pain, bilateral Smoker Surgical History Hx of oral surgery History of knee surgery Family History Father No problems noted. Mother No problems noted. 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 Cognitive needs: No Hearing needs: No Vision needs: Yes (reading glasses) Review of Systems Const All systems reviewed & are unremarkable except as noted in HPI and below Reports no additional complaints ENT Reports Normal hearing present Card Denies chest pain, Denies chest pain at rest, Denies chest pain with activity and Denies pedal edema Resp Denies cough GI Denies abdominal pain Musc Denies abnormal gait, Denies muscle cramps and Denies radiating pain into limb Skin/Breast Denies skin ulcer and Denies wounds Neuro Reports Normal hearing present and Denies abnormal gait Psych Reports no additional complaints Physical Exam Vital Signs: BMI result Body Mass Index 21.4 Const General: cooperative, healthy appearing and comfortable Orientation/consciousness: oriented to person, oriented to place and oriented to time HEENT Head: Yes normal to inspection Neck Neck: Yes normal visual inspection Carotids: no bruits Chest Chest palpation & inspection: normal inspection of the chest Resp Effort & Inspection: normal respiratory effort and able to speak in complete sentences Auscultation: clear to auscultation bilaterally, no crackles, no rales, no rhonchi and no wheezes Cardio Other: Bilateral DP signals Rate: regular rate Rhythm: regular rhythm Heart sounds: S1 normal heart sound present and S2 normal heart sound present Bruits: no carotid bruits GI Inspection: Yes normal to inspection Skin Wounds: no wounds Hair: normal Neuro General: oriented to person, oriented to place and oriented to time Cranial nerves: Yes CN's II-XII intact bilaterally and Yes Normal hearing present Cognition (Neuro): normal cognition Motor exam (neuro): 5/5 motor strength present throughout Extrem Other: venous exam: No significant superficial varicosities or spider telangiectasias, minimal edema General: No clubbing, No cyanosis and No edema Psych Appearance: grossly normal Mental Status: mental status grossly normal Speech and movement: Normal speech and movement present Results Reviewed Results Reviewed: JOSE on the left 0.32 and on the right of 0.47 Assessment & Plan Assessment & Plan (1) PAD (peripheral artery disease): Code(s): I73.9 - Peripheral vascular disease, unspecified Category: Medical Plan: Patient notes leg pain when walking distances. I have discussed the pathophysiology of peripheral vascular disease with the patient. I have also discussed risk factor modification. I have reviewed the patient's arterial testing which reveals bilateral SFA disease but left is worse than right. Clinically he complains about the right but unfortunately I am unable to appreciate a left femoral pulse. I suspect inflow disease as well. the patient would benefit from a left leg endovascular peripheral angiogram with possible angioplasty, stent, and/or atherectomy. This has been discussed in detail with the patient along with risks, benefits, and complications. This includes but is not limited to bleeding, infection, heart attack, need for emergent surgical repair, limb ischemia, blood vessel damage, bleeding, puncture, kidney injury, bruising, allergic reaction, and skin reaction. The patient demonstrates a clear understanding. We will schedule for the next appropriate time. Thank you for allowing us to assist in this patient's care. Coding Level of Care Code Est Pt Level 4 (83095) Complex EM visit Add On G2211 Diagnoses PAD (peripheral artery disease) I73.9
--- OUTSIDE RECORDS SUMMARY | 2025-01-03 11:45 | XMS_ITS | Clinical Summary ---
Author Organization [facility] Address [address] [place] [id number] Phone Care Team Providers Care Grips Name Role Phone Mauricio Douglas DO Primary Care Provider [phone]- [phone] Allergies No known active allergies Medications No [...] Medical Devices Not on file Care Teams Grips Relationship Specialty Start Date End Date Mauricio Douglas DO [address] [place] [address] PCP - General Internal Medicine 03/09/17 Additional Source Comments The information contained in this document represents components of the legal health record. It is not the complete legal health record.[facility]
--- OUTSIDE RECORDS SUMMARY | 2025-01-03 11:45 | XMS_ITS | Encounter Summary ---
Author Organization [facility] Address [address] [place] [id number] Phone Care Team Providers Care Line Maintenance Supervisor Name Role Phone Mauricio Douglas DO Primary Care Provider [phone]- [phone] Encounter Details Date Type Department Care Team (Late st Contact Info) Description 03/09/2017 Procedure Pass [facility], Ct Scan - [address] [address] Social History Tobacco Use Types Packs/Day Years [...] on filedocumented in this encounter Care Teams Line Maintenance Supervisor Relationship Specialty Start Date End Date Mauricio Douglas DO [address] [place] [address] PCP - General Internal Medicine 03/09/17 documented as of this encounter Additional Source Comments The information contained in this document represents components of the legal health record. It is not the complete legal health record.[facility]
--- OUTSIDE RECORDS SUMMARY | 2025-01-03 11:45 | XMS_ITS | Clinical Summary ---
Author Organization [facility] Address [address] [place] [address] Care Team Providers Care Denial Resolution Specialist Name Role Phone Jonatan Orourke Primary Care Provider [phone] Allergies No known active allergies Medications apixaban (Eliquis DVT-PE Treat 30D Start) starter pack (74 tabs) Take 2 tablets (10 mg total) by mouth 2 times a day for 7 days, then take 1 tablet (5 mg total) 2 times a day. 74 tablet 12/08/2024 Active Encounters Date Type Department Care Team Description 12/08/2024 Results Follow-Up [facility] [address] [place] [address] Feli Cheatham RN 12/07/2024 1:26 PM EDT - 12/08/2024 11:28 AM EDT Hospital Encounter [facility] [address] [place] [address] Volodymyr Fontenot MD Kapoor, Monica, MD Fidrocki, James E., MD Broach, John P. 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) Discharge Disposition: Home or Self Care (01) from Last 3 Months Social History Tobacco Use Types Packs/Day Years Used Date Smoking Tobacco: Never Assessed Sex and Gender Information Value Date Recorded Sex Assigned at Male 12/07/2024 2:12 PM EDT Legal Sex Male 11:21 AM EDT Gender Identity Not on file Sexual Orientation Not on file Last Filed Vital Signs Vital Sign Reading Time Taken Comments Blood Pressure 151/80 12/08/2024 7:24 AM EDT Pulse 58 12/08/2024 7:24 AM EDT Temperature 36.4 C (97.5 F) 12/08/2024 7:24 AM EDT Respiratory Rate 18 12/08/2024 8:39 AM EDT Oxygen Saturation 98% 12/08/2024 7:24 AM EDT Inhaled Oxygen Concentration - - Weight 61.7 kg (136 lb) 12/08/2024 8:39 AM EDT Height 175.3 cm (5' 9 ) 12/08/2024 8:39 AM EDT Body Mass Index 20.08 12/08/2024 8:39 AM EDT Plan of Treatment Health Maintenance Due Date Last Done Comments Cologuard 1973 Colon Cancer Screening 1973 Colonoscopy 1973 FOBT / Fit Test 1973 HIV Screening 1973 Hepatitis C Screening 1973 Sigmoidoscopy 1973 Hepatitis B Vaccines (1 of 3 - 19+ 3-dose series) 10/13 DTaP,Tdap,and Td Vaccines (1 - Tdap) 11/11/1995 Pneumococcal Vaccine: 50+ Years (1 of 1 - PCV) 024 Zoster Vaccines (1 of 2) 11/11/2023 Alcohol/Substance Use Screening 04/13/2024 Depression Screening and Follow-Up 04/13/2024 Social Drivers of Health Annual Screening 04/13/2024 COVID-19 Vaccine ( - 2023- season) 2024 Influenza Vaccine (#1) 2024 RSV Vaccine (60+ years old a nd patients) (1 - 1-dose 75+ series) 2048 Procedures * Due to [place] state law, this organization might not be sharing negative HIV tests. Procedure Name Priority Date/Time Associated Diagnosis Comments TRANSTHORACIC ECHO (TTE) COMPLETE STAT 12/08/2024 9:[address] ANGIOGRAM RUNOFF W CONTRAST STAT 12/07/2024 4:[address] ANGIOGRAM CHEST W CONTRAST STAT 12/07/2024 4:42 PM EDT PTT STAT 12/07/2024 4:20 PM EDT PROTIME-INR STAT 12/07/2024 4:20 PM EDT ANKLE/BRACHIAL INDEX AND ARTERIAL WAVEFORM ANALYSIS STAT 12/07/2024 4:05 PM EDT LIGHT GREEN TOP Routine 12/07/2024 3:04 PM EDT EXTRA TUBES Routine 12/07/2024 3:04 PM EDT CBC AUTO DIFFERENTIAL STAT 12/07/2024 3:02 PM EDT COMPREHENSIVE METABOLIC PANEL STAT 12/07/2024 3:02 PM EDT ECG 12-LEAD Routine 12/07/2024 1:40 PM EDT HEART & VASCULAR - SCANNED 12/07/2024 HEART & VASCULAR - SCANNED 12/07/2024 from Last 3 Months Results * Due to [place] state law, this organization might not be sharing negative HIV tests. * TRANSTHORACIC ECHO (TTE) COMPLETE (12/08/2024 9:25 AM EDT) RIGHT ATRIAL PRESSURE 3 mmHg LVIDD 5.4 cm LVIDS 3.8 cm IVS 0.5 cm LVOT diameter 2.1 cm LVOT area 3.46 cm2 Relative Wall Thickness 0.23 PW 0.6 cm LV Mass Index 57 g/m2 LA size 3.4 cm LV ED Post Wall 0.60 LV ES Dimension 3.80 LV ED Dimension 5.40 Aortic Valve Diam 2.1 cm Anatomical Region Laterality Modality Heart Echocardiography Narrative 12/08/2024 10:34 AM EDT The left ventricle size is normal. Normal left ventricular wall thickness. Left ventricular mass index is normal. Normal left ventricular wall motion. Normal left ventricular systolic function. Abnormal septal motion Normal left ventricular diastolic function. TR jet was inadequate to estimate pulmonary artery pressure. IVC diameter is less than or equal to 21 mm and decreases greater than 50% during inspiration; therefore the estimated right atrial pressure is normal (~3 mmHg). Patient refused bubble study Left Ventricle The left ventricle size is normal. Normal left ventricular wall thickness. Left ventricular mass index is normal. Normal left ventricular wall motion. Normal left ventricular systolic function. Abnormal septal motion Normal left ventricular diastolic function. Right Ventricle Right ventricle size is normal. Normal right ventricular systolic function. Left Atrium Left atrium size is normal. Right Atrium Right atrium is normal in size. IVC/SVC IVC diameter is less than or equal to 21 mm and decreases greater than 50% during inspiration; therefore the estimated right atrial pressure is normal (~3 mmHg). Mitral Valve Normal mitral valve without significant regurgitation or stenosis. Tricuspid Valve Normal tricuspid valve without significant regurgitation or stenosis. Aortic Valve Trileaflet aortic valve without significant regurgitation or stenosis. Pulmonic Valve Normal pulmonic valve without significant regurgitation or stenosis. Ascending Aorta The sinuses of Valsalva is normal. Pericardium No pericardial effusion. Pulmonary Artery TR jet was inadequate to estimate pulmonary artery pressure. Atrial Septum No interatrial shunt detected by color flow Doppler. Ventricular Septum Normal septal motion. Study Details A complete echo was performed using 2D imaging, color flow Doppler and complete spectral Doppler. During the study the apical, parasternal, subcostal and suprasternal view was captured. Overall the study quality was adequate. Prior Study There is no prior study available for comparison. us Pepper Cabrera NP CV ECHO PROCEDURES Final Result * CT Angiogram Chest W Contrast (12/07/2024 4:42 PM EDT) Anatomical Region Laterality Modality Body Computed Tomogra phy 12/07/2024 5:15 PM EDT Impressions 12/07/2024 8:06 PM EDT * THORACIC AND ABDOMINAL AORTA: -No acute aortic dissection or aneurysm. Extensive atherosclerotic disease predominantly involving infrarenal abdominal aorta with multifocal areas of at least moderate stenosis. 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 -Hypodense plaque involving right distal superficial femoral artery with short segment total occlusion and distal reconstitution of the popliteal artery. -Patent bilateral anterior tibial, posterior tibial and peroneal arteries. * No evidence of pulmonary embolism. * No acute abnormality in the chest abdomen and pelvis. * Pulmonary nodules (less than 2 mm) Single solid nodule smaller than 6mm. For this type of nodule, the Fleischner Society recommends no CT follow-up if the patient is at a low risk for lung cancer, and an optional CT follow-up in 12 months if the patient is at a high risk for lung cancer. For comments and reference, please see [https://doi.org/10.1148/radiol.3147792161]. For information about nodule measurements and reporting, please see [https://pubs.rsna.org/doi/10.1148/radiol.5163707601]. I, Abby No, have reviewed the examination and concur with the findings as reported or so edited. Trainee: Josef Pedraza If this radiology report contains a blank impression section, it is an incomplete radiology report. Please contact the interpreting radiologist or applicable radiology division as soon as possible to obtain the completed interpretation. Workstation ID: [id number] Up-to-date CT equipment and radiation dose reduction techniques were employed. CTDIvol: 2.3 - 6.9 mGy. DLP: 1482 mGy-cm. The following accession numbers are related to this dose report [id number]: [id number] Narrative 12/07/2024 8:06 PM EDT EXAMINATION: CTA Chest with contrast CT angiogram of the abdomen, pelvis and bilateral lower extremities INDICATION: Embolism, lower leg ischemia -An additional history: history of DVT is status post 90 days treatment with anticoagulation, status post right lower extremity thrombectomy 2 weeks history of bilateral knee pain and duplex positive bilateral DVT and arterial clots was started on heparin drip TECHNIQUE: Helical imaging through the thorax was performed during the injection of intravenous contrast. Coronal and sagittal reformatted sequences were provided. Multiplanar and 3D reformatted images were rendered on an independent advanced processing workstation and reviewed to further define anatomy and possible pathology. 3D vessel analysis was used to obtain standard aorta and artery diameter measurements perpendicular to the long axis of the measured artery. TECHNIQUE CTA runoff: Helical angiographic images of the abdomen, pelvis, and bilateral lower extremities after the administration of intravenous contrast. Axial, coronal and sagittal reformats were obtained. 3-D volume rendered reconstructions. For radiation dose control at least one of the following techniques was used in this procedure (1) Automated exposure control (2) Adjustment of the mA and/or kV according to patient size (3) Use of iterative reconstruction technique. COMPARISON: None. FINDINGS: Vasculature: Left-sided three-vessel origin of the arch. Origin of the great vessels are patent. Thoracic aorta is normal in caliber without evidence of dissection. Eccentric slightly irregular mixed, predominantly hypodense atherosclerotic plaque along the descending aorta without significant luminal narrowing of the thoracic aorta. Multifocal abdominal aortic atherosclerosis predominantly involving mid to lower abdominal aorta There is large, partly calcified plaque in abdominal aorta immediately inferior to the renal arteries with 40-50% stenosis. Normal appearance of celiac trunk, superior mesenteric artery and bilateral renal arteries. Distal opacification is maintained. Both kidneys are perfused. The inferior mesenteric artery is patent. The is large calcified plaque with 70-80% stenosis prior to common iliac bifurcation. Total occlusion of the proximal left common iliac artery that reconstitutes. [place] through the collateral. There is continuous multifocal left external iliac artery occlusion (80-90%) with with reconstitution through collateral at the femoral artery which appears diminutive in size. Right external iliac arteries patent. Internal iliac arteries: Diffuse calcified atherosclerotic disease. with near 70-80% as the left external iliac artery stenosis. Right common femoral artery: Patent Right profunda artery: Patent Right superficial femoral artery patent proximal femoral artery. Eccentric soft plaque with near complete short segment occlusion of the distal femoral artery (series 7: Image 159) with distal reconstitution Right popliteal artery: Reconstituted popliteal artery appears patent. Right posterior tibial artery: Patent multifocal disease.. Right anterior tibial artery: Patent. With multifocal disease Right peroneal tibial artery: Patent. With multifocal disease Left common femoral artery: Patent with multifocal disease and 40-50% stenosis. Left profunda artery: Patent. Left superficial femoral artery: Patent. Left popliteal artery: Patent. Left posterior tibial artery: Patent. Left anterior tibial artery: Patent. Left peroneal tibial artery: Patent. No evidence of pulmonary embolism. LUNGS: Diffuse centrilobular and paraseptal emphysematous changes predominantly involving bilateral upper lobe. Central luminal opacifications of the subsegmental bronchus in lingula (9:119-1 21) denting of mucous plug. There is a smaller mucous plaque in right lower lobe subsegmental bronchus (9:134 and 156). Linear discoid atelectasis of the right lower lobe (9:128) Few pulmonary nodules such as: 2 mm left lower lobe pulmonary nodule (series 9, 158). Right upper lobe 2 mm pulmonary nodule perifissural. (9:96) MEDIASTINUM: Unremarkable. NODES: No large lymphadenopathy ABDOMEN/PELVIS: The liver., gallbladder, spleen, pancreas and adrenal glands are unremarkable. No intrahepatic dilatation. Both kidneys are symmetrically enhanced. No obstructive uropathy. The bowel loops are normal in caliber without obstruction. The appendix is normal. The pelvic viscera are grossly unremarkable. BONES AND CHEST WALL: No osseous lesions. Thoracic spine degenerative changes. Preservation of vertebral body heights. Normal thoracolumbar spine. No osseous lesion in pelvic and lower extremity. Resulting Agency Comment [id number] Volodymyr Fontenot MD IMG CT PROCEDURES Final Result * CT Angiogram Runoff W Contrast (12/07/2024 4:42 PM EDT) Anatomical Region Laterality Modality Body Computed Tomogra phy 12/07/2024 6:00 PM EDT Impressions 12/07/2024 8:06 PM EDT * THORACIC AND ABDOMINAL AORTA: -No acute aortic dissection or aneurysm. Extensive atherosclerotic disease predominantly involving infrarenal abdominal aorta with multifocal areas of at least moderate stenosis. 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 -Hypodense plaque involving right distal superficial femoral artery with short segment total occlusion and distal reconstitution of the popliteal artery. -Patent bilateral anterior tibial, posterior tibial and peroneal arteries. * No evidence of pulmonary embolism. * No acute abnormality in the chest abdomen and pelvis. * Pulmonary nodules (less than 2 mm) Single solid nodule smaller than 6mm. For this type of nodule, the Fleischner Society recommends no CT follow-up if the patient is at a low risk for lung cancer, and an optional CT follow-up in 12 months if the patient is at a high risk for lung cancer. For comments and reference, please see [https://doi.org/10.1148/radiol.0238739582]. For information about nodule measurements and reporting, please see [https://pubs.rsna.org/doi/10.1148/radiol.1387181820]. I, Abby No, have reviewed the examination and concur with the findings as reported or so edited. Trainee: Josef Pedraza If this radiology report contains a blank impression section, it is an incomplete radiology report. Please contact the interpreting radiologist or applicable radiology division as soon as possible to obtain the completed interpretation. Workstation ID: [id number] Up-to-date CT equipment and radiation dose reduction techniques were employed. CTDIvol: 2.3 - 6.9 mGy. DLP: 1482 mGy-cm. The following accession numbers are related to this dose report [id number]: [id number] Narrative 12/07/2024 8:06 PM EDT EXAMINATION: CTA Chest with contrast CT angiogram of the abdomen, pelvis and bilateral lower extremities INDICATION: Embolism, lower leg ischemia -An additional history: history of DVT is status post 90 days treatment with anticoagulation, status post right lower extremity thrombectomy 2 weeks history of bilateral knee pain and duplex positive bilateral DVT and arterial clots was started on heparin drip TECHNIQUE: Helical imaging through the thorax was performed during the injection of intravenous contrast. Coronal and sagittal reformatted sequences were provided. Multiplanar and 3D reformatted images were rendered on an independent advanced processing workstation and reviewed to further define anatomy and possible pathology. 3D vessel analysis was used to obtain standard aorta and artery diameter measurements perpendicular to the long axis of the measured artery. TECHNIQUE CTA runoff: Helical angiographic images of the abdomen, pelvis, and bilateral lower extremities after the administration of intravenous contrast. Axial, coronal and sagittal reformats were obtained. 3-D volume rendered reconstructions. For radiation dose control at least one of the following techniques was used in this procedure (1) Automated exposure control (2) Adjustment of the mA and/or kV according to patient size (3) Use of iterative reconstruction technique. COMPARISON: None. FINDINGS: Vasculature: Left-sided three-vessel origin of the arch. Origin of the great vessels are patent. Thoracic aorta is normal in caliber without evidence of dissection. Eccentric slightly irregular mixed, predominantly hypodense atherosclerotic plaque along the descending aorta without significant luminal narrowing of the thoracic aorta. Multifocal abdominal aortic atherosclerosis predominantly involving mid to lower abdominal aorta There is large, partly calcified plaque in abdominal aorta immediately inferior to the renal arteries with 40-50% stenosis. Normal appearance of celiac trunk, superior mesenteric artery and bilateral renal arteries. Distal opacification is maintained. Both kidneys are perfused. The inferior mesenteric artery is patent. The is large calcified plaque with 70-80% stenosis prior to common iliac bifurcation. Total occlusion of the proximal left common iliac artery that reconstitutes. [place] through the collateral. There is continuous multifocal left external iliac artery occlusion (80-90%) with with reconstitution through collateral at the femoral artery which appears diminutive in size. Right external iliac arteries patent. Internal iliac arteries: Diffuse calcified atherosclerotic disease. with near 70-80% as the left external iliac artery stenosis. Right common femoral artery: Patent Right profunda artery: Patent Right superficial femoral artery patent proximal femoral artery. Eccentric soft plaque with near complete short segment occlusion of the distal femoral artery (series 7: Image 159) with distal reconstitution Right popliteal artery: Reconstituted popliteal artery appears patent. Right posterior tibial artery: Patent multifocal disease.. Right anterior tibial artery: Patent. With multifocal disease Right peroneal tibial artery: Patent. With multifocal disease Left common femoral artery: Patent with multifocal disease and 40-50% stenosis. Left profunda artery: Patent. Left superficial femoral artery: Patent. Left popliteal artery: Patent. Left posterior tibial artery: Patent. Left anterior tibial artery: Patent. Left peroneal tibial artery: Patent. No evidence of pulmonary embolism. LUNGS: Diffuse centrilobular and paraseptal emphysematous changes predominantly involving bilateral upper lobe. Central luminal opacifications of the subsegmental bronchus in lingula (9:119-1 21) denting of mucous plug. There is a smaller mucous plaque in right lower lobe subsegmental bronchus (9:134 and 156). Linear discoid atelectasis of the right lower lobe (9:128) Few pulmonary nodules such as: 2 mm left lower lobe pulmonary nodule (series 9, 158). Right upper lobe 2 mm pulmonary nodule perifissural. (9:96) MEDIASTINUM: Unremarkable. NODES: No large lymphadenopathy ABDOMEN/PELVIS: The liver., gallbladder, spleen, pancreas and adrenal glands are unremarkable. No intrahepatic dilatation. Both kidneys are symmetrically enhanced. No obstructive uropathy. The bowel loops are normal in caliber without obstruction. The appendix is normal. The pelvic viscera are grossly unremarkable. BONES AND CHEST WALL: No osseous lesions. Thoracic spine degenerative changes. Preservation of vertebral body heights. Normal thoracolumbar spine. No osseous lesion in pelvic and lower extremity. Resulting Agency Comment [id number] Volodymyr Fontenot MD IMG CT PROCEDURES Final Result * (ABNORMAL) PTT (12/07/2024 4:20 PM EDT) aPTT 57.1(H) 23.0 - 32.0 Seconds 12/07/2024 4:42 PM EDT [facility] Comment: Current PTT reagent is not sensitive to detect all Lupus Anticoagulant (LA) Inhibitor Cases. If a LA is suspected, please order a Lupus Anticoagulation w/ Reflex Test which is performed at [facility] in [place], [place]. Blood Structure of peripheral vein / Unknown Venipuncture / Unknown 12/07/2024 4:20 PM EDT 12/07/2024 4:26 PM EDT Volodymyr Fontenot MD LAB BLOOD ORDERABLES Final Res ult Performing Organization Address [facility] [place] Co de Phone Number [facility] [address] [place] [id number], * Protime-INR (12/07/2024 4:20 PM EDT) PT 10.7 9.6 - 12.4 Seconds 12/07/2024 4:42 PM EDT [facility] INR 1.0 0.9 - 1.1 12/07/2024 4:42 PM EDT [facility] Comment:The optimal therapeu tic INR range for patients treated with Vitamin K antagonists (VKAS, e.g., Warfarin) is 2.0 to 3.5. Discuss the desired range with your doctor/care team. Blood Structure of peripheral vein / Unknown Venipuncture / Unknown 12/07/2024 4:20 PM EDT 12/07/2024 4:26 PM EDT Volodymyr Fontenot MD LAB BLOOD ORDERABLES Final Res ult Performing Organization Address [facility] Co de Phone Number [facility] [address] [place] [address], [place] * Ankle/Brachial Index and Arterial Waveform Analysis ([facility]asc Lab) (12/07/2024 4:05 PM EDT) Pressure Brachial Right 168 mmHg Pressure Posterior Tibial Arterial Right 77 mmHg Index Posterior Tibial Arterial Right 0.45 Pressure Dorsalis Pedis Arterial Right 81 mmHg Index Dorsalis Pedis Arterial Right 0.47 Pressure Toe 1 Right 0 mmHg Index Toe 1 Right 0.00 Pressure Brachial Left 172 mmHg Pressure Posterior Tibial Arterial Left 55 mmHg Index Posterior Tibial Arterial Left 0.32 Pressure Dorsalis Pedis Arterial Left 51 mmHg Index Dorsalis Pedis Arterial Left 0.30 Pressure 1 Toe Left 0 mmHg Index Toe 1 Left 0.00 Pressure Brachial all 172.00 mmHg Anatomical Region Laterality Modality Vascular Ultrasound Narrative 12/08/2024 12:25 PM EDT The right ankle/brachial index and abnormal Doppler waveforms indicated severe arterial insufficiency at rest. A flat PPG waveform was detected at the right great toe indicating severe ischemia. The left ankle/brachial index and abnormal Doppler waveforms indicated severe arterial insufficiency at rest. A flat PPG waveform was detected at the left great toe indicating severe ischemia. Preliminary results were given to Linda Weinstein MD. JOSE Right Lower Extremity: Doppler waveform: abnormal Severity of Arterial Insufficiency by JOSE: severe Severity of Arterial Insufficiency by TBI: flat PPG - severe Left Lower Extremity: Doppler waveform: abnormal Severity of Arterial Insufficiency by JOSE: severe Severity of Arterial Insufficiency by TBI: flat PPG - severe Tech Comments Smoker, dusky appearance of bilateral great toes x few weeks per patient Volodymyr Fontenot MD CV VASCULAR PROCEDURES Final R esult * Light Green Top (12/07/2024 3:04 PM EDT) Extra Tube Hold for add-ons. 12/07/2024 7:05 PM EDT [facility] Comment:Auto resulted. Blood Structure of peripheral vein / Unknown 12/07/2024 3:04 PM EDT 12/07/2024 3:04 PM EDT us Protocol Unv Adult Treatment MD LAB BLOOD ORDERA BLES Final Result [facility] [address] [place] [address], [place] * (ABNORMAL) CBC Auto Differential (12/07/2024 3:02 PM EDT) WBC 12.2(H) 3.8 - 10.8 10*3/uL 12/07/2024 3:14 PM EDT [facility] RBC 4.93 4.20 - 5.80 10*6/uL 12/07/2024 3:14 PM EDT [facility] Hemoglobin 16.5 13.2 - 17.1 g/dL 12/07/2024 3:14 PM EDT [facility] Hematocrit 48.5 38.5 - 50.0 % 12/07/2024 3:14 PM EDT [facility] MCV 98.4 80.0 - 100.0 fL 12/07/2024 3:14 PM EDT [facility] MCH 33.5(H) 27.0 - 33.0 pg 12/07/2024 3:14 PM EDT [facility] MCHC 34.0 32.0 - 36.0 g/dL 12/07/2024 3:14 PM EDT [facility] RDW 13.8 11.0 - 15.0 % 12/07/2024 3:14 PM EDT [facility] Platelets 387 140 - 400 10*3/uL 12/07/2024 3:14 PM EDT [facility] [employer] [facility] MPV 9.7 7.5 - 12.5 fL 12/07/2024 3:14 PM EDT [facility] Neutrophil % 64.9 % 12/07/2024 3:14 PM EDT [facility] Immature Grans % 0.4 0.0 - 0.9 % 12/07/2024 3:14 PM EDT [facility] Lymphocyte % 21.1 % 12/07/2024 3:14 PM EDT [facility] Monocyte % 9.5 % 12/07/2024 3:14 PM EDT [facility] Eosinophil % 3.4 % 12/07/2024 3:14 PM EDT [employer] [facility] Basophil % 0.7 % 12/07/2024 3:14 PM EDT [employer] [facility] Neutrophil # 7.90(H) 1.50 - 7.80 10*3/uL 12/07/2024 3:14 PM EDT [facility] Immature Grans # 0.05(H) <=0.03 10*3/uL 12/07/2024 3:14 PM EDT [employer] [facility] Lymphocyte # 2.60 0.85 - 3.90 10*3/uL 12/07/2024 3:14 PM EDT [facility] Monocyte # 1.20(H) 0.20 - 0.95 10*3/uL 12/07/2024 3:14 PM EDT [facility] Eosinophil # 0.40 0.02 - 0.50 10*3/uL 12/07/2024 3:14 PM EDT [employer] [facility] Basophil # 0.10 0.00 - 0.20 10*3/uL 12/07/2024 3:14 PM EDT [facility] nRBC % 0.0 /100 WBCs 12/07/2024 3:14 PM EDT [employer] [facility] nRBC # <0.01 <0.01 10*3/uL 12/07/2024 3:14 PM EDT [employer] [facility] Blood Structure of peripheral vein / Unknown Venipuncture / Unknown 12/07/2024 3:02 PM EDT 12/07/2024 3:07 PM EDT us Volodymyr Fontenot MD LAB BLOOD ORDERABLES Final Res ult [facility] [address] [place] [address], * (ABNORMAL) CMP - Comprehensive Metabolic Panel (12/07/2024 3:02 PM EDT) NA 136 135 - 145 mmol/L 12/07/2024 3:41 PM EDT [facility] K 6.0(H) 3.5 - 5.3 mmol/L 12/07/2024 3:41 PM EDT [facility] Comment:3+ hemolysis; the re sult may be Falsely Increased. Cl 101 98 - 107 mmol/L 12/07/2024 3:41 PM EDT [employer] CO2 24 22 - 32 mmol/L 12/07/2024 3:41 PM EDT [facility] Anion Gap 11 5 - 15 12/07/2024 3:41 PM EDT [facility] Glucose 93 65 - 99 mg/dL 12/07/2024 3:41 PM EDT [facility] Creatinine 0.98 0.60 - 1.30 mg/dL 12/07/2024 3:41 PM EDT [facility] Calcium 9.1 8.6 - 10.5 mg/dL 12/07/2024 3:41 PM EDT [facility] Total Protein 7.8 6.0 - 8.0 g/dL 12/07/2024 3:41 PM EDT [facility] Comment:3+ hemolysis; the re sult may be Falsely Increased. Albumin 4.2 3.5 - 5.2 g/dL 12/07/2024 3:41 PM EDT [employer] [facility] Bilirubin, Total 0.5 0.2 - 1.2 mg/dL 12/07/2024 3:41 PM EDT [facility] Alkaline Phosphatase 102 35 - 129 U/L 12/07/2024 3:41 PM EDT [facility] Comment:3+ hemolysis; the re sult may be Falsely Decreased. AST 54(H) 10 - 40 U/L 12/07/2024 3:41 PM EDT [facility] Comment:3+ hemolysis; the re sult may be Falsely Increased. ALT 18 10 - 40 U/L 12/07/2024 3:41 PM EDT [facility] Comment:3+ hemolysis; the re sult may be Falsely Increased. BUN 6(L) 7 - 23 mg/dL 12/07/2024 3:41 PM EDT [facility] eGFR >90 >=60 mL/min/1. 73m2 12/07/2024 3:41 PM EDT [facility] Comment:The estimated glomer ular filtration rate (eGFR) is calculated using a new formula developed by the NKF-ASN task force to eliminate race-based correction factors. The new formula uses serum/plasma creatinine, age, and gender to determine eGFR. A value below 60mls/min might indicate kidney disease and will be flagged. For additional information, see Negro et al, Am J Kidney Dis. 2021;79(2):268- 288, A Unifying Approach for GFR estimation: Recommendations of the NKF-ASN Task Force on Reassessing the Inclusion of Race in Diagnosing Kidney Disease . Globulin, Total 3.6 2.1 - 4.2 g/dL 12/07/2024 3:41 PM EDT [facility] A/G Ratio 1.2(L) 1.5 - 3.0 12/07/2024 3:41 PM EDT [facility] Blood Structure of peripheral vein / Unknown Venipuncture / Unknown 12/07/2024 3:02 PM EDT 12/07/2024 3:13 PM EDT us Voldoymyr Fontenot MD LAB BLOOD ORDERABLES Final Res ult Performing Organization Address [facility]/ZIP Co de Phone Number [facility] [address] [place] [address], * ECG 12 lead (12/07/2024 1:40 PM EDT) Ventricular Rate EKG 62 BPM MUSE EKG Atrial Rate 62 BPM MUSE EKG [place] Interval 144 ms MUSE EKG QRS Interval 88 ms MUSE EKG QT Interval 416 ms MUSE EKG QTC Interval 422 ms MUSE EKG P [place] 64 degrees MUSE EKG R [place] 58 degrees MUSE EKG T Wave [place] 68 degrees MUSE EKG 12/07/2024 1:40 PM EDT 12/12/2024 8:48 PM EDT Impressions MUSE EKG - 12/12/2024 8:48 PM EDT NORMAL SINUS RHYTHM NORMAL ECG NO PREVIOUS ECGS AVAILABLE Confirmed by Sheng Evans ([id number]) on 12/12/2024 8:48:38 PM Narrative Procedure Note Sheng Evans MD - 12/12/2024 IMPRESSION: NORMAL SINUS RHYTHM NORMAL ECG NO PREVIOUS ECGS AVAILABLE Confirmed by Sheng Evans ([id number]) on 12/12/2024 8:48:38 PM us Hydro Sprayer Operator Yair WINTERS ECG ORDERABLES Final Resu lt Performing Organization Address [facility] Co de Phone Number MUSE EKG * HEART & VASCULAR - SCANNED (12/07/2024) Only the most recent of2 resultswithin the time period is included. Anatomical Region Laterality Modality Other us Onbase Scan Andrea SCANNED PROCEDURES Final Resu lt from Last 3 Months Insurance BCBS OUT OF STATE HMO Advance Directives * Full Code (Latest Code Status on File) Date Activated Date Inactivated Comments 12/07/2024 9:53 PM 12/08/2024 1:28 PM Care Teams Denial Resolution Specialist Relationship Specialty Start Date End Date Jonatan Orourke [address] [place] [address] PCP - General Internal Medicine 12/07/24
== END 2025-01-03 10:35 | disposition home or self-care (01) ==
LOC: HO.HVS 09:48
PROVIDERS: PCP Internal Medicine; Visit Provider Surgery Vascular Surgery
DX: I73.9 Peripheral vascular disease, unspecified (principal)
CPT/HCPCS: 99214

== ENCOUNTER 2025-01-11 07:33 | Day surgery (SDC) | payer BC, SELFPAY ==
--- OUTSIDE RECORDS SUMMARY | 2025-01-05 17:12 | XMS_ITS | Clinical Summary ---
Author Organization [facility] Address [address] [place] [phone] Phone Care Team Providers Care Grounds Manager Name Role Phone Mauricio Douglas DO Primary Care Provider +1- [phone] Allergies No known active allergies Medications No [...] Medical Devices Not on file Care Teams Grounds Manager Relationship Specialty Start Date End Date Mauricio Douglas DO [address] [place] [address] PCP - General Internal Medicine 03/09/17 Additional Source Comments The information contained in this document represents components of the legal health record. It is not the complete legal health record.[facility]
--- OUTSIDE RECORDS SUMMARY | 2025-01-05 17:12 | XMS_ITS | Encounter Summary ---
Author Organization [facility] Address [address] [place] [address] Phone Care Team Providers Care Stone Finisher Name Role Phone Mauricio Douglas DO Primary Care Provider +1- [phone] Encounter Details Date Type Department Care Team (Late st Contact Info) Description 03/09/2017 Procedure Pass [facility], Ct Scan - [address] [address] Social History Tobacco Use Types Packs/Day Years [...] on filedocumented in this encounter Care Teams Stone Finisher Relationship Specialty Start Date End Date Mauricio Douglas DO [address] [place] [address] PCP - General Internal Medicine 03/09/17 documented as of this encounter Additional Source Comments The information contained in this document represents components of the legal health record. It is not the complete legal health record.[facility]
--- OUTSIDE RECORDS SUMMARY | 2025-01-05 17:12 | XMS_ITS | Clinical Summary ---
Author Organization [facility] Address [address] [place] [address] Care Team Providers Care Reconciliation Clerk Name Role Phone Jonatan Orourke Primary Care Provider Allergies No known active allergies Medications apixaban (Eliquis DVT-PE Treat 30D Start) starter pack (74 tabs) Take 2 tablets (10 mg total) by mouth 2 times a day for 7 days, then take 1 tablet (5 mg total) 2 times a day. 74 tablet 12/08/2024 Active Encounters Date Type Department Care Team Description 12/08/2024 Results Follow-Up [facility] Emergency Department [address] [place] [address] Feli Cheatham RN 12/07/2024 1:26 PM EDT - 12/08/2024 11:28 AM EDT Hospital Encounter [facility] Emergency Department [address] [place] [address] Volodymyr Fontenot MD Kapoor, Monica, MD Fidrocki, [...] 75+ series) 2048 Procedures * Due to [place] state law, this organization might not be [...] Last 3 Months Results * Due to [place] state law, this organization might not be [...] cancer. For comments and reference, please see [https://doi.org/10.1148/radiol.5485983560]. For information about nodule measurements and reporting, please see [https://pubs.rsna.org/doi/10.1148/radiol.1462700451]. I, Abby No, have reviewed the examination and concur with the findings as reported or so edited. Trainee: Josef Pedraza If this radiology report contains a blank impression section, it is an incomplete radiology report. Please contact the interpreting radiologist or applicable radiology division as soon as possible to obtain the completed interpretation. Workstation ID: [id number] Up-to-date CT equipment and radiation dose reduction techniques were employed. CTDIvol: 2.3 - 6.9 mGy. DLP: 1482 mGy-cm. The following accession numbers are related to this dose report [id number]: [id number] Narrative 12/07/2024 8:06 PM EDT EXAMINATION: CTA [...] proximal left common iliac artery that reconstitutes. [place] through the collateral. There is continuous multifocal [...] pelvic and lower extremity. Resulting Agency Comment [id number] Volodymyr Fontenot MD IMG CT PROCEDURES Final [...] cancer. For comments and reference, please see [https://doi.org/10.1148/radiol.2107231161]. For information about nodule measurements and reporting, please see [https://pubs.rsna.org/doi/10.1148/radiol.1066293537]. I, Abby No, have reviewed the examination and concur with the findings as reported or so edited. Trainee: Josef Pedraza If this radiology report contains a blank impression section, it is an incomplete radiology report. Please contact the interpreting radiologist or applicable radiology division as soon as possible to obtain the completed interpretation. Workstation ID: [id number] Up-to-date CT equipment and radiation dose reduction techniques were employed. CTDIvol: 2.3 - 6.9 mGy. DLP: 1482 mGy-cm. The following accession numbers are related to this dose report [id number]: [id number] Narrative 12/07/2024 8:06 PM EDT EXAMINATION: CTA [...] proximal left common iliac artery that reconstitutes. [place] through the collateral. There is continuous multifocal [...] pelvic and lower extremity. Resulting Agency Comment [id number] Volodymyr Fontenot MD IMG CT PROCEDURES Final Result * (ABNORMAL) PTT (12/07/2024 4:20 PM EDT) aPTT 57.1(H) 23.0 - 32.0 Seconds 12/07/2024 4:42 PM EDT [facility] Comment: Current PTT reagent is not sensitive to detect all Lupus Anticoagulant (LA) Inhibitor Cases. If a LA is suspected, please order a Lupus Anticoagulation w/ Reflex Test which is performed at [facility] in [place], [place]. Blood Structure of peripheral vein / Unknown Venipuncture / Unknown 12/07/2024 4:20 PM EDT 12/07/2024 4:26 PM EDT Volodymyr Fontenot MD LAB BLOOD ORDERABLES Final Res ult Performing Organization Address [facility] Co de Phone Number [facility] [address] [place] [id number], * Protime-INR (12/07/2024 4:20 PM EDT) PT 10.7 9.6 - 12.4 Seconds 12/07/2024 4:42 PM EDT [facility] INR 1.0 0.9 - 1.1 12/07/2024 4:42 PM EDT [facility] Comment:The optimal therapeu tic INR range for patients treated with Vitamin K antagonists (VKAS, e.g., Warfarin) is 2.0 to 3.5. Discuss the desired range with your doctor/care team. Blood Structure of peripheral vein / Unknown Venipuncture / Unknown 12/07/2024 4:20 PM EDT 12/07/2024 4:26 PM EDT Volodymyr Fontenot MD LAB BLOOD ORDERABLES Final Res ult Performing Organization Address [facility] Co de Phone Number [facility] [address] [place] [address], [place] * Ankle/Brachial Index and Arterial Waveform [...] Hold for add-ons. 12/07/2024 7:05 PM EDT [facility] Comment:Auto resulted. Blood Structure of peripheral vein / Unknown 12/07/2024 3:04 PM EDT 12/07/2024 3:04 PM EDT us Protocol Unv Adult Treatment MD LAB BLOOD ORDERA BLES Final Result [facility] [address] [place] [address], [place] * (ABNORMAL) CBC Auto Differential (12/07/2024 3:02 PM EDT) WBC 12.2(H) 3.8 - 10.8 10*3/uL 12/07/2024 3:14 PM EDT [facility] RBC 4.93 4.20 - 5.80 10*6/uL 12/07/2024 3:14 PM EDT [facility] Hemoglobin 16.5 13.2 - 17.1 g/dL 12/07/2024 3:14 PM EDT [facility] Hematocrit 48.5 38.5 - 50.0 % 12/07/2024 3:14 PM EDT [facility] MCV 98.4 80.0 - 100.0 fL 12/07/2024 3:14 PM EDT [facility] MCH 33.5(H) 27.0 - 33.0 pg 12/07/2024 3:14 PM EDT [facility] MCHC 34.0 32.0 - 36.0 g/dL 12/07/2024 3:14 PM EDT [facility] RDW 13.8 11.0 - 15.0 % 12/07/2024 3:14 PM EDT [facility] Platelets 387 140 - 400 10*3/uL 12/07/2024 3:[address] [facility] MPV 9.7 7.5 - 12.5 fL 12/07/2024 3:14 PM EDT [facility] Neutrophil % 64.9 % 12/07/2024 3:14 PM EDT [facility] Immature Grans % 0.4 0.0 - 0.9 % 12/07/2024 3:14 PM EDT [facility] Lymphocyte % 21.1 % 12/07/2024 3:14 PM EDT [facility] Monocyte % 9.5 % 12/07/2024 3:14 PM EDT [facility] Eosinophil % 3.4 % 12/07/2024 3:[address] [facility] Basophil % 0.7 % 12/07/2024 3:[address] [facility] Neutrophil # 7.90(H) 1.50 - 7.80 10*3/uL 12/07/2024 3:14 PM EDT [facility] Immature Grans # 0.05(H) <=0.03 10*3/uL 12/07/2024 3:[address] [facility] Lymphocyte # 2.60 0.85 - 3.90 10*3/uL 12/07/2024 3:14 PM EDT [facility] Monocyte # 1.20(H) 0.20 - 0.95 10*3/uL 12/07/2024 3:14 PM EDT [facility] Eosinophil # 0.40 0.02 - 0.50 10*3/uL 12/07/2024 3:[address] [facility] Basophil # 0.10 0.00 - 0.20 10*3/uL 12/07/2024 3:14 PM EDT [facility] nRBC % 0.0 /100 WBCs 12/07/2024 3:[address] [facility] nRBC # <0.01 <0.01 10*3/uL 12/07/2024 3:14 PM EDT [facility] Blood Structure of peripheral vein / Unknown Venipuncture / Unknown 12/07/2024 3:02 PM EDT 12/07/2024 3:07 PM EDT us Volodymyr Fontenot MD LAB BLOOD ORDERABLES Final Res ult [facility] [address] [place] [address], * (ABNORMAL) CMP - Comprehensive Metabolic Panel (12/07/2024 3:02 PM EDT) NA 136 135 - 145 mmol/L 12/07/2024 3:41 PM EDT [facility] K 6.0(H) 3.5 - 5.3 mmol/L 12/07/2024 3:41 PM EDT [facility] Comment:3+ hemolysis; the re sult may be Falsely Increased. Cl 101 98 - 107 mmol/L 12/07/2024 3:41 PM EDT [facility] CO2 24 22 - 32 mmol/L 12/07/2024 3:41 PM EDT [facility] Anion Gap 11 5 - 15 12/07/2024 3:41 PM EDT [facility] Glucose 93 65 - 99 mg/dL 12/07/2024 3:41 PM EDT [facility] Creatinine 0.98 0.60 - 1.30 mg/dL 12/07/2024 3:41 PM EDT [facility] Calcium 9.1 8.6 - 10.5 mg/dL 12/07/2024 3:41 PM EDT [facility] Total Protein 7.8 6.0 - 8.0 g/dL 12/07/2024 3:41 PM EDT [facility] Comment:3+ hemolysis; the re sult may be Falsely Increased. Albumin 4.2 3.5 - 5.2 g/dL 12/07/2024 3:41 PM EDT [facility] Bilirubin, Total 0.5 0.2 - 1.2 mg/dL 12/07/2024 3:41 PM EDT [facility] Alkaline Phosphatase 102 35 - 129 U/L 12/07/2024 3:41 PM EDT [facility] Comment:3+ hemolysis; the re sult may be Falsely Decreased. AST 54(H) 10 - 40 U/L 12/07/2024 3:41 PM EDT [facility] Comment:3+ hemolysis; the re sult may be Falsely Increased. ALT 18 10 - 40 U/L 12/07/2024 3:41 PM EDT [facility] Comment:3+ hemolysis; the re sult may be Falsely Increased. BUN 6(L) 7 - 23 mg/dL 12/07/2024 3:41 PM EDT [facility] eGFR >90 >=60 mL/min/1. 73m2 12/07/2024 3:41 PM EDT [facility] Comment:The estimated glomer ular [...] - 4.2 g/dL 12/07/2024 3:41 PM EDT [facility] A/G Ratio 1.2(L) 1.5 - 3.0 12/07/2024 3:41 PM EDT [facility] Blood Structure of peripheral vein / Unknown Venipuncture / Unknown 12/07/2024 3:02 PM EDT 12/07/2024 3:13 PM EDT us Volodymyr Fontenot MD LAB BLOOD ORDERABLES Final Res ult Performing Organization Address [facility]/ZIP Co de Phone Number [facility] [address] [place] [address], * ECG 12 lead (12/07/2024 1:40 PM EDT) Ventricular Rate EKG 62 BPM MUSE EKG Atrial Rate 62 BPM MUSE EKG [place] Interval 144 ms MUSE EKG QRS Interval 88 ms MUSE EKG QT Interval 416 ms MUSE EKG QTC Interval 422 ms MUSE EKG P Twain 64 degrees MUSE EKG R [place] 58 degrees MUSE EKG T Wave [place] 68 degrees MUSE EKG 12/07/2024 1:40 PM EDT 12/12/2024 8:48 PM EDT Impressions MUSE EKG - 12/12/2024 8:48 PM EDT NORMAL SINUS RHYTHM NORMAL ECG NO PREVIOUS ECGS AVAILABLE Confirmed by Sheng Evans ([id number]) on 12/12/2024 8:48:38 PM Narrative Procedure Note Sheng Evans MD - 12/12/2024 IMPRESSION: NORMAL SINUS RHYTHM NORMAL ECG NO PREVIOUS ECGS AVAILABLE Confirmed by Sheng Evans ([id number]) on 12/12/2024 8:48:38 PM us Apartment Leasing Agent Yair WINTERS ECG ORDERABLES Final Resu lt Performing Organization Address [facility] Co de Phone Number MUSE EKG * [...] 9:53 PM 12/08/2024 1:28 PM Care Teams Reconciliation Clerk Relationship Specialty Start Date End Date Jonatan Orourke [address] [place] [address] PCP - General Internal Medicine 12/07/24
[2025-01-11] VITALS (18 sets, daily range): BP systolic 128–155; BP diastolic 57–95; PULSE 59–91; RESP 13–22; TEMP 36.1–36.8; O2SAT 95–99; BMI 19.8
[2025-01-11 08:23] LABS: MANUAL DIFF FLAG NO
[2025-01-11 08:33] LABS: Hematocrit 45.9 % (42.0-52.0); Hemoglobin 15.9 g/dl (14.0-18.0); Imm Gran Abs Auto 0.04 X10*3/uL (0.00-0.03); Imm Gran Pct Auto 0.4 % (0.0-0.4); Lymphocytes Absolute Auto 2.4 X10*3/uL (1.2-4.9); Mean Corpuscular HGB Conc 34.6 g/dl (31.0-36.0); Mean Corpuscular Hemoglobin 33.2 pg (27.0-33.0); Mean Corpuscular Volume 95.8 fL (80.0-98.0); NRBC Abs Auto 0.000 X10*3/uL (0.0-0.012); NRBC Pct Auto 0.0 /100WBC (0.0-0.2); Platelet Count 296 X10*3/uL (160-400); Red Blood Count 4.79 X10*6/uL (4.60-5.80); White Blood Count 10.8 X10*3/uL (4.8-10.8)
[2025-01-11 08:40] LABS: Blood Urea Nitrogen 8 mg/dL (9-16); Creatinine Clr Calc Pharmacy 79.0; Estimated Glomerular Filt Rate > 60
--- NOTE | 2025-01-11 11:20 | P.OP_ITS ---
Operative Note Operative Note Date of Service: 01/11/25 Narrative: Angiogram report from [facility] Preoperative diagnosis: Atherosclerosis of bilateral lower extremity with activity limiting claudication Postoperative diagnosis: Same Procedure: 1. Ultrasound-guided right common femoral access 2. Aortogram with bilateral lower extremity runoff Surgeon:Omero Osborn M.D., FACS, RPVI Painter And Grader Cork:None Anesthesia: Local with moderate conscious sedation. Total intraservice moderate sedation time was 20 minutes. I monitored the patient's level of consciousness and physiologic status continuously throughout the procedure. Specimens:none Drains:none Estimated blood loss: Less than 10 ml Radiation Dose: 96.5 mGy Implant: None Indications: 49-year-old gentleman with severe activity limiting claudication now presents for endovascular intervention The patient has signed the informed consent after reviewing risks, complications, benefits, and alternatives previously discussed with the patient. The patient was given the opportunity to ask any additional questions or voice any concerns. All questions were answered to the patient's satisfaction. Procedure in detail: Patient was brought to the angiography suite prior to which a time-out was called for patient identification and site verification. Bilateral groins were prepped and draped in the standard surgical fashion. Under ultrasound guidance right common femoral was punctured with micro puncture needle and wire. Subsequently a precision 5 Swiss sheath was then placed. [facility] wire was advanced to the level of the aorta. 5 Swiss Flush catheter was brought up and parked at the level of the renal arteries. Aortogram was then undertaken. Catheter was brought down to the level of the iliac bifurcation. Iliacs and runoff was performed through the flush catheter that was parked at the bifurcation and a power injection was performed to visualize bilateral runoff vessels. Due to the total left iliac artery occlusion we were unable to traverse the other side. We then through the sheath imaged the distal runoff on the right lower extremity. No intervention was indicated. A 5 Swiss CELT closure device was then placed. Patient tolerated the procedure well. Returned to recovery with stable vitals. Interpretation of films: 1. Ultrasound demonstrates appropriate femoral access site. Vessel was patent with minimal stenosis. Needle entry was visualized. Image of ultrasound was saved. 2. Aortogram demonstrates appropriate caliber aorta. Minimal disease. Appropriate take-off of the renals. 3. Iliac images demonstrate left total iliac occlusion 4. Left Leg Common femoral artery: No significant disease Profundus Femoris: No significant disease Superficial femoral artery: No significant disease Popliteal artery (p1,p2,p3): No significant disease Anterior tibial artery: Poorly visualized Peroneal artery: Poorly visualized Posterior tibial artery: Poorly visualized Dorsalis pedis/plantar arch: Incomplete 5. Right Leg Common femoral artery: No significant disease Profundus Femoris: No significant disease Superficial femoral artery: Total occlusion at Jose J's canal Popliteal artery (p1,p2,p3): No significant disease Anterior tibial artery: Poorly visualized Peroneal artery: Poorly visualized Posterior tibial artery: Poorly visualized Dorsalis pedis/plantar arch: Incomplet Conclusion: 1. Successful diagnostic angiogram. Will need open surgical intervention. 2. Anticoagulation status: No change This note is constructed using voice recognition software. While every effort has been made to ensure accuracy, geospatial applications developer errors may have been included. Thank you for allowing me to participate in the care of your patient. Yours sincerely, Omero Osborn MD, FACS, R.P.V.I.
--- NOTE | 2025-01-11 13:29 | PC.NURSE ---
as per discussion with md. Osborn i called patient and informed him to start eloquis tonight.
== END 2025-01-11 12:35 | disposition home or self-care (01) ==
PROVIDERS: PCP Internal Medicine; Visit Provider Surgery Vascular Surgery
DX: I70.213 Atherosclerosis of native arteries of extremities with intermittent claudication, bilateral legs (principal); Z86.718 Personal history of other venous thrombosis and embolism; M79.672 Pain in left foot; M79.671 Pain in right foot; F17.210 Nicotine dependence, cigarettes, uncomplicated; Z98.890 Other specified postprocedural states
CPT/HCPCS: 36246; 36415; 75630; 76937; 82565; 84520; 85025; C1760; C1769; C1887; C1894; J1644; J2250; J3010; Q9967

== ENCOUNTER → 2025-01-11 07:33 | Outpatient (BNV) | payer BC, SELFPAY | PROVIDERS: PCP Internal Medicine; Visit Provider Surgery Vascular Surgery | DX: I70.213 Atherosclerosis of native arteries of extremities with intermittent claudication, bilateral legs (principal) | CPT/HCPCS: 36247; 75625; 75716; 76937; 99152 ==

== ENCOUNTER 2025-01-26 09:51 | Outpatient (AMB) | payer BC, SELFPAY ==
--- NOTE | 2025-01-26 10:04 | MHC.OFFVIS ---
Vital Signs 01/26/25 10:05 Height 5 ft 9 in Weight 138 lb BMI 20.4 Intake Visit Reasons: 2 week follow up L leg angiogram 01/11/25 Intake Note: 2 week follow up diagnostic angio 01/11/25. Pt states the Left LE feels somewhat better, but no other changes. Instrument And Electrical Technician Required: No Accompanied by: Self / Same As Patient Allergies No Known Allergies Allergy (Verified 01/26/25 10:07) HPI HPI 2 week follow up L leg angiogram 01/11/25: Details: The patient is a 49-year-old male presenting for follow-up regarding angiogram results and management of peripheral artery disease. The patient has undergone a diagnostic angiogram which revealed significant blockage in the right lower extremity, particularly behind the knee. The patient reports that the right toe is more bothersome, indicating possible ischemic symptoms. A previous CAT scan was performed, and the patient has undergone various tests, including pressure measurements on the legs. 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 PFSH Medical History DVT (deep venous thrombosis) PAD (peripheral artery disease) ETOH abuse Leg pain, bilateral Smoker Surgical History Hx of hand surgery Hx of oral surgery History of knee surgery Family History Father No problems noted. Mother No problems noted. 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 Cognitive needs: No Hearing needs: No Vision needs: Yes (reading glasses) Review of Systems Const All systems reviewed & are unremarkable except as noted in HPI and below Reports no additional complaints ENT Reports Normal hearing present Card Denies chest pain, Denies chest pain at rest, Denies chest pain with activity and Denies pedal edema Resp Denies cough GI Denies abdominal pain Musc Denies abnormal gait, Denies muscle cramps and Denies radiating pain into limb Skin/Breast Denies skin ulcer and Denies wounds Neuro Reports Normal hearing present and Denies abnormal gait Psych Reports no additional complaints Physical Exam Vital Signs: BMI result Body Mass Index 20.4 Const General: cooperative, healthy appearing and comfortable Orientation/consciousness: oriented to person, oriented to place and oriented to time HEENT Head: Yes normal to inspection Neck Neck: Yes normal visual inspection Carotids: no bruits Chest Chest palpation & inspection: normal inspection of the chest Resp Effort & Inspection: normal respiratory effort and able to speak in complete sentences Auscultation: clear to auscultation bilaterally, no crackles, no rales, no rhonchi and no wheezes Cardio Other: Bilateral DP signals Rate: regular rate Rhythm: regular rhythm Heart sounds: S1 normal heart sound present and S2 normal heart sound present Bruits: no carotid bruits Peripheral pulses: Peripheral pulses 2+ throughout GI Inspection: Yes normal to inspection Skin Wounds: no wounds Hair: normal Neuro General: oriented to person, oriented to place and oriented to time Cranial nerves: Yes CN's II-XII intact bilaterally and Yes Normal hearing present Cognition (Neuro): normal cognition Motor exam (neuro): 5/5 motor strength present throughout Extrem Other: venous exam: No significant superficial varicosities or spider telangiectasias, minimal edema General: No clubbing, No cyanosis and No edema Psych Appearance: grossly normal Mental Status: mental status grossly normal Speech and movement: Normal speech and movement present Assessment & Plan Assessment & Plan (1) PAD (peripheral artery disease): Comment: 02/11/2025 - diagnostic angiogram, right SFA occlusion left iliac occlusion Code(s): I73.9 - Peripheral vascular disease, unspecified Category: Medical Plan: I discussed with the patient the findings from the angiogram, which showed significant blockage in the right lower extremity. We talked about the need for a new CAT scan with runoff to further evaluate the blockage and plan for potential surgical intervention. I explained that due to the patient's age and the severity of the condition, a major surgery, possibly a bypass, might be necessary, and this would require a recovery period that could affect his work schedule. Orders: Orders Blood Urea Nitrogen Today I73.9 - Peripheral vascular disease, unspecified CT angio abd aorta runoff Today I73.9 - Peripheral vascular disease, unspecified Creatinine Today I73.9 - Peripheral vascular disease, unspecified Coding Level of Care Code Est Pt Level 4 (60047) Diagnoses PAD (peripheral artery disease) I73.9
[2025-01-26 10:05] VITALS: BMI 20.4
--- OUTSIDE RECORDS SUMMARY | 2025-01-26 11:34 | XMS_ITS | Encounter Summary ---
Author Organization [facility] Address [address] [place] [address] Care Team Providers Care Sales Architect Name Role Phone TaySergio Primary Care Provider [phone] Encounter Details Date Type Department Care Team ([facility] Contact Info) Description 01/24/2025 [employer] Message [facility] - Actionable Findings [address] [place] [address] Mychart, Generic Provider [address] [phone] incidental finding, 12/07/24 Social History Tobacco Use Types Packs/Day Years Used Date Smoking Tobacco: Never Assessed Sex and Gender Information Value Date Recorded Sex Assigned at Male 12/07/2024 2:12 PM EDT Legal Sex Male 11:21 AM EDT Gender Identity Not on file Sexual Orientation Not on file documented as of this encounter Plan of Treatment Not on file documented as of this encounter Visit Diagnoses Not on filedocumented in this encounter Care Teams Sales Architect Relationship Specialty Start Date End Date Sergio Cross [address] [place] [address] PCP - General 01/24/25 documented as of this encounter
--- OUTSIDE RECORDS SUMMARY | 2025-01-26 11:34 | XMS_ITS | Encounter Summary ---
Author Organization [facility] Address [address] [place] [phone] Phone Care Team Providers Care Quality Control Assistant Name Role Phone Mauricio Douglas DO Primary Care Provider [phone] Encounter Details Date Type Department Care Team (Late st Contact Info) Description 03/09/2017 Procedure Pass [facility], Ct Scan - [address] [address] Social History Tobacco Use Types Packs/Day Years [...] on filedocumented in this encounter Care Teams Quality Control Assistant Relationship Specialty Start Date End Date Mauricio Douglas DO [address] [place] [address] PCP - General Internal Medicine 03/09/17 documented as of this encounter Additional Source Comments The information contained in this document represents components of the legal health record. It is not the complete legal health record.[facility]
--- OUTSIDE RECORDS SUMMARY | 2025-01-26 11:34 | XMS_ITS | Clinical Summary ---
Author Organization [facility] Address [address] [place] [address] Care Team Providers Care Cracker Sprayer Name Role Phone Sergio Cross Primary Care Provider [phone] Allergies No known active allergies Medications apixaban (Eliquis DVT-PE Treat 30D Start) starter pack (74 tabs) Take 2 tablets (10 mg total) by mouth 2 times a day for 7 days, then take 1 tablet (5 mg total) 2 times a day. 74 tablet 12/08/2024 Active Encounters Date Type Department Care Team Description 01/24/2025 myChart Message [facility] - Actionable Findings [address] [place] [address] Jo-Ann Jeong Provider incidental finding, 12/07/24 12/08/2024 Results Follow-Up [facility] Emergency Department [address] [place] [address] eFli Cheatham RN 12/07/2024 1:26 PM EDT - 12/08/2024 11:28 AM EDT Hospital Encounter [facility] Emergency Department [address] [place] [address] Volodymyr Fontenot MD Kapoor, MD Rosy Bull James E., MD Broach, Dimitri Horton II, MD Arterial embolism and thrombosis of [...] Annual Screening 04/13/2024 COVID-19 Vaccine ( - season) 2024 Influenza Vaccine (#1) 2024 RSV Vaccine (60+ years old a nd patients) (1 - 1-dose 75+ series) 2048 Procedures * Due to [place] state law, this organization might not be [...] Last 3 Months Results * Due to [place] state law, this organization might not be [...] is no prior study available for comparison. Pepper Cabrera NP CV ECHO PROCEDURES Final [...] cancer. For comments and reference, please see [https://doi.org/10.1148/radiol.3563419153]. For information about nodule measurements and reporting, please see [https://pubs.rsna.org/doi/10.1148/radiol.6820426954]. I, Abby No, have reviewed the examination and concur with the findings as reported or so edited. Trainee: Josef Pedraza If this radiology report contains a blank impression section, it is an incomplete radiology report. Please contact the interpreting radiologist or applicable radiology division as soon as possible to obtain the completed interpretation. Workstation ID: [id number] Up-to-date CT equipment and radiation dose reduction techniques were employed. CTDIvol: 2.3 - 6.9 mGy. DLP: 1482 mGy-cm. The following accession numbers are related to this dose report [id number]: [id number] Narrative 12/07/2024 8:06 PM EDT EXAMINATION: CTA [...] proximal left common iliac artery that reconstitutes. [place] through the collateral. There is continuous multifocal [...] pelvic and lower extremity. Resulting Agency Comment [id number] Volodymyr Fontenot MD IMG CT PROCEDURES Final [...] cancer. For comments and reference, please see [https://doi.org/10.1148/radiol.3948233124]. For information about nodule measurements and reporting, please see [https://pubs.rsna.org/doi/10.1148/radiol.3457650679]. I, Abby No, have reviewed the examination and concur with the findings as reported or so edited. Trainee: Josef Pedraza If this radiology report contains a blank impression section, it is an incomplete radiology report. Please contact the interpreting radiologist or applicable radiology division as soon as possible to obtain the completed interpretation. Workstation ID: [id number] Up-to-date CT equipment and radiation dose reduction techniques were employed. CTDIvol: 2.3 - 6.9 mGy. DLP: 1482 mGy-cm. The following accession numbers are related to this dose report [id number]: [id number] Narrative 12/07/2024 8:06 PM EDT EXAMINATION: CTA [...] proximal left common iliac artery that reconstitutes. [place] through the collateral. There is continuous multifocal [...] pelvic and lower extremity. Resulting Agency Comment [id number] Volodymyr Fontenot MD IMG CT PROCEDURES Final Result * (ABNORMAL) PTT (12/07/2024 4:20 PM EDT) aPTT 57.1(H) 23.0 - 32.0 Seconds 12/07/2024 4:42 PM EDT [facility] Comment: Current PTT reagent is not sensitive to detect all Lupus Anticoagulant (LA) Inhibitor Cases. If a LA is suspected, please order a Lupus Anticoagulation w/ Reflex Test which is performed at [facility] in [place], [place]. Blood Structure of peripheral vein / Unknown Venipuncture / Unknown 12/07/2024 4:20 PM EDT 12/07/2024 4:26 PM EDT Volodymyr Fontenot MD LAB BLOOD ORDERABLES Final Res ult [facility] LAB[facility]ORY [address] [place] [address], * Protime-INR (12/07/2024 4:20 PM EDT) PT 10.7 9.6 - 12.4 Seconds 12/07/2024 4:42 PM EDT [facility] INR 1.0 0.9 - 1.1 12/07/2024 4:42 PM EDT [facility] Comment:The optimal therapeu tic INR range for patients treated with Vitamin K antagonists (VKAS, e.g., Warfarin) is 2.0 to 3.5. Discuss the desired range with your doctor/care team. 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 12/07/2024 7:05 PM EDT [facility] Comment:Auto resulted. Blood Structure of peripheral vein / Unknown 12/07/2024 3:04 PM EDT 12/07/2024 3:04 PM EDT us Protocol Unv Adult Treatment MD LAB BLOOD ORDERA BLES Final Result [facility] [address] [place] [address], [place] * (ABNORMAL) CBC Auto Differential (12/07/2024 3:02 PM EDT) WBC 12.2(H) 3.8 - 10.8 10*3/uL 12/07/2024 3:14 PM EDT [facility] RBC 4.93 4.20 - 5.80 10*6/uL 12/07/2024 3:14 PM EDT [facility] Hemoglobin 16.5 13.2 - 17.1 g/dL 12/07/2024 3:14 PM EDT [facility] Hematocrit 48.5 38.5 - 50.0 % 12/07/2024 3:14 PM EDT [facility] MCV 98.4 80.0 - 100.0 fL 12/07/2024 3:14 PM EDT [facility] MCH 33.5(H) 27.0 - 33.0 pg 12/07/2024 3:14 PM EDT [facility] MCHC 34.0 32.0 - 36.0 g/dL 12/07/2024 3:14 PM EDT [facility] RDW 13.8 11.0 - 15.0 % 12/07/2024 3:14 PM EDT [facility] Platelets 387 140 - 400 10*3/uL 12/07/2024 3:14 PM EDT [facility] MPV 9.7 7.5 - 12.5 fL 12/07/2024 3:14 PM EDT [facility] Neutrophil % 64.9 % 12/07/2024 3:14 PM EDT [facility] Immature Grans % 0.4 0.0 - 0.9 % 12/07/2024 3:14 PM EDT [facility] Lymphocyte % 21.1 % 12/07/2024 3:14 PM EDT [facility] Monocyte % 9.5 % 12/07/2024 3:14 PM EDT [facility] Eosinophil % 3.4 % 12/07/2024 3:14 PM EDT [facility] Basophil % 0.7 % 12/07/2024 3:14 PM EDT [facility] Neutrophil # 7.90(H) 1.50 - 7.80 10*3/uL 12/07/2024 3:14 PM EDT [facility] Immature Grans # 0.05(H) <=0.03 10*3/uL 12/07/2024 3:14 PM EDT [facility] Lymphocyte # 2.60 0.85 - 3.90 10*3/uL 12/07/2024 3:14 PM EDT [facility] Monocyte # 1.20(H) 0.20 - 0.95 10*3/uL 12/07/2024 3:14 PM EDT [facility] Eosinophil # 0.40 0.02 - 0.50 10*3/uL 12/07/2024 3:14 PM EDT [facility] Basophil # 0.10 0.00 - 0.20 10*3/uL 12/07/2024 3:14 PM EDT [facility] nRBC % 0.0 /100 WBCs 12/07/2024 3:14 PM EDT [facility] nRBC # <0.01 <0.01 10*3/uL 12/07/2024 3:14 PM EDT [facility] Blood Structure of peripheral vein / Unknown Venipuncture / Unknown 12/07/2024 3:02 PM EDT 12/07/2024 3:07 PM EDT us Volodymyr Fontenot MD LAB BLOOD ORDERABLES Final Res ult [facility] LAB[facility]ORY [address] [place] [address], * (ABNORMAL) CMP - Comprehensive Metabolic Panel (12/07/2024 3:02 PM EDT) NA 136 135 - 145 mmol/L 12/07/2024 3:41 PM EDT [facility] K 6.0(H) 3.5 - 5.3 mmol/L 12/07/2024 3:41 PM EDT [facility] Comment:3+ hemolysis; the re sult may be Falsely Increased. Cl 101 98 - 107 mmol/L 12/07/2024 3:41 PM EDT [facility] CO2 24 22 - 32 mmol/L 12/07/2024 3:41 PM EDT [facility] Anion Gap 11 5 - 15 12/07/2024 3:41 PM EDT [facility] Glucose 93 65 - 99 mg/dL 12/07/2024 3:41 PM EDT [facility] Creatinine 0.98 0.60 - 1.30 mg/dL 12/07/2024 3:41 PM EDT [facility] Calcium 9.1 8.6 - 10.5 mg/dL 12/07/2024 3:41 PM EDT [facility] Total Protein 7.8 6.0 - 8.0 g/dL 12/07/2024 3:41 PM EDT [facility] Comment:3+ hemolysis; the re sult may be Falsely Increased. Albumin 4.2 3.5 - 5.2 g/dL 12/07/2024 3:41 PM T [facility] LAB[facility] Bilirubin, Total 0.5 0.2 - 1.2 mg/dL 12/07/2024 3:41 PM EDT [facility] Alkaline Phosphatase 102 35 - 129 U/L 12/07/2024 3:41 PM T [facility] Comment:3+ hemolysis; the re sult may be Falsely Decreased. AST 54(H) 10 - 40 U/L 12/07/2024 3:41 PM EDT [facility] Comment:3+ hemolysis; the re sult may be Falsely Increased. ALT 18 10 - 40 U/L 12/07/2024 3:41 PM T [facility] Comment:3+ hemolysis; the re sult may be Falsely Increased. BUN 6(L) 7 - 23 mg/dL 12/07/2024 3:41 PM [facility] eGFR >90 >=60 mL/min/1. 73m2 12/07/2024 3:41 PM [facility] Comment:The estimated glomer ular [...] 2.1 - 4.2 g/dL 12/07/2024 3:41 PM T [facility] A/G Ratio 1.2(L) 1.5 - 3.0 12/07/2024 3:41 PM T [facility] Blood Structure of peripheral vein / Unknown Venipuncture / Unknown 12/07/2024 3:02 PM EDT 12/07/2024 3:13 PM EDT us Volodymyr Fontenot MD LAB BLOOD ORDERABLES Final Res ult Performing Organization Address [facility]/ZIP Co de Phone Number [facility] [address] [place] [address], [place] * ECG 12 lead (12/07/2024 1:40 PM EDT) Ventricular Rate EKG 62 BPM MUSE EKG Atrial Rate 62 BPM MUSE EKG MT Interval 144 ms MUSE EKG QRS Interval 88 ms MUSE EKG QT Interval 416 ms MUSE EKG QTC Interval 422 ms MUSE EKG P [place] 64 degrees MUSE EKG R [place] 58 degrees MUSE EKG T Wave [place] 68 degrees MUSE EKG 12/07/2024 1:40 PM EDT 12/12/2024 8:48 PM EDT Impressions MUSE EKG - 12/12/2024 8:48 PM EDT NORMAL SINUS RHYTHM NORMAL ECG NO PREVIOUS ECGS AVAILABLE Confirmed by Sheng Evans ([id number]) on 12/12/2024 8:48:38 PM Narrative Procedure Note Sheng Evans MD - 12/12/2024 IMPRESSION: NORMAL SINUS RHYTHM NORMAL ECG NO PREVIOUS ECGS AVAILABLE Confirmed by Sheng Evans ([id number]) on 12/12/2024 8:48:38 PM us [employer] ECG ORDERABLES Final Resu lt Performing Organization Address [facility]/ZIP Co de Phone Number MUSE EKG * HEART & VASCULAR - SCANNED (12/07/2024) Only the most recent of2 resultswithin the time period is included. Anatomical Region Laterality Modality Other us Onbase Scan Andrea SCANNED PROCEDURES Final Resu lt from Last 3 Months Insurance [facility] PPO/EPO Advance Directives * Full Code (Latest Code Status on File) Date Activated Date Inactivated Comments 12/07/2024 9:53 PM 12/08/2024 1:28 PM Care Teams Cracker Sprayer Relationship Specialty Start Date End Date Sergio Cross [address] [place] [address] PCP - General 01/24/25
--- OUTSIDE RECORDS SUMMARY | 2025-01-26 11:34 | XMS_ITS | Clinical Summary ---
Author Organization [facility] Address [address] [place] [phone] Phone Care Team Providers Care Manager Scientific Name Role Phone Mauricio Douglas DO Primary Care Provider [phone] Allergies No known active allergies Medications No [...] Medical Devices Not on file Care Teams Manager Scientific Relationship Specialty Start Date End Date Mauricio Douglas DO [address] [place] [address] PCP - General Internal Medicine 03/09/17 Additional Source Comments The information contained in this document represents components of the legal health record. It is not the complete legal health record.[facility]
== END 2025-01-26 10:29 | disposition home or self-care (01) ==
LOC: HO.HVS 09:52
PROVIDERS: PCP Internal Medicine; Visit Provider Surgery Vascular Surgery
DX: I73.9 Peripheral vascular disease, unspecified (principal)
CPT/HCPCS: 99214